=== PATIENT | male | born 1955 | race Caucasian/White ===

== ENCOUNTER 2020-01-22 13:07 | Outpatient (CLI) | payer MEDICARE, OTHER, SELFPAY ==
[2020-01-22 13:43] LABS: Blood Urea Nitrogen 13 mg/dL (8-23); Glomerular Filtration Rate 55.8 mL/min (90-130)
[2020-01-22] MEDS: iodixanol 320 mg/mL 100mL Btl IV (13:57)
--- NOTE | 2020-01-22 14:00 | CT_ITS ---
WS: [id number] CT ANGIOGRAPHY OF THE ABDOMINAL AORTA WITH RUNOFF TO THE ANKLES HISTORY: leg pain TECHNIQUE: Arterial injection is performed during imaging to evaluate the aorta and runoff vessels to the ankles. MIP and volume rendering imaging has also been performed. All images are reviewed. All C T scans at [facility] use at least one of these dose optimization techniques: automated ex posure control; mA and/or kV adjustment per patient size (includes targeted exams where dose is match ed to clinical indication); or iterative reconstruction. Contrast: Visipaque 320; 95 mL IV. DLP: 1579.38 mGycm COMPARISON: 10/07/2017 Chronic emphysematous changes at the lung bases. Heart size is slightly enlarged. Small hiatal hernia . Prior cholecystectomy. Early arterial enhancement of the liver, spleen, pancreas, adrenals and kidney s are negative for acute abnormality. No bile duct dilatation. No mass is, adenopathy or ascites. Abdominal aorta: Tortuous ectatic aorta. Mild aneurysmal dilatation measuring up to 3.2 cm. Calcified plaque in intimal luminal thickening. Origins of the celiac axis and SMA are patent but there is ana maria cified plaque. More significant plaque in the mid to distal SMA. Renal arteries are patent. Bilateral common iliac arteries contain plaque and intimal thickening. Limited opacification with moderate odell nosis involving the origin of the RIGHT external iliac of 40-50%. RIGHT lower extremity arterial system: Calcified plaque and intimal thickening throughout the common and superficial femoral artery. Occlusion of the proximal SFA. Progression of the stenosis. There is intermittent visualization of the mid to distal SFA. There are reconstitution distally with an intact popliteal artery. Small caliber but intact three-vessel runoff to the ankle. LEFT lower extremity arterial system: Again noted is the focal segment dissection involving the proxi mal LEFT common femoral artery. Superficial femoral artery demonstrates moderate stenosis in the prox imal to mid artery. Several areas of yffl-vh-flgtafau stenosis throughout the superficial femoral art james. Patent popliteal artery. Mild progression since the prior study. Deep profunda remains intact. S mall caliber but three-vessel runoff remains to the ankle. No adenopathy. No free fluid or ascites. No GI tract obstruction. Degenerative disc disease at multip le levels in the lumbar spine. CT/CT angio abd aorta runof 80693 IMPRESSION: 1. Proximal RIGHT SFA occlusion with distal reconstitution into the popliteal artery. Extent of the occlusion has progressed since 2018. 2. 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 3. Multilevel areas of vjvg-co-bvlkkzyt stenosis throughout the mid to distal LEFT SFA. Stenosis less than 60%. 4. Three-vessel runoff to the ankles bilaterally. 5. Mild aneurysmal dilatation abdominal aorta with a maximum diameter of 3.2 c m. Mild progression of the aneurysm since 2018.
== END 2020-01-22 13:08 | disposition home or self-care (01) ==
LOC: RADWPI 13:11
PROVIDERS: Family Provider Nurse Practitioner Family; PCP Nurse Practitioner Family; Visit Provider Thoracic Surgery (Cardiothoracic Vascular Surgery)
DX: M79.606 Pain in leg, unspecified (principal); I70.8 Atherosclerosis of other arteries; I71.4 Abdominal aortic aneurysm, without rupture
CPT/HCPCS: 75635; 82565; 84520; Q9967

== ENCOUNTER 2020-02-13 08:56 | Outpatient (CLI) | payer MEDICARE, SELFPAY ==
--- NOTE | 2020-02-13 09:14 | ECG_ITS ---
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 Interpretive Statements NAME OF STUDY: LEXISCAN SESTAMIBI STRESS TEST INDICATION: Chest Pain PROCEDURE: At the baseline, the EKG revealed sinus rhythm, normal axis with non specific ST depression. The baseline blood pressure was 159/76 mm Hg with a heart rate of 61 beats/min. Lexiscan was infused over a period of 20 seconds. A total of 0.4 milligrams of Lexiscan was infused. The stress phase was continued for a total of 5 minutes. Heart rate at the end of the stress phase was 74 bpm with a blood pressure 167/70 mm Hg. The EKG at the peak infusion revealed no significant ST-T wave changes. The study was terminated due to protocol completion. Sestamibi was injected 20 seconds after the Lexiscan infusion. Blood pressure at the end of the recovery phase was 179/63 mm Hg with a heart rate of 75 bpm. CONCLUSION: 1. Nonspecific ST-T changes with the LexiScan infusion. 2. No LexiScan induced chest pain or cardiac arrhythmia. 3. Normal blood pressure and heart rate response. 4. Sestamibi/sestamibi perfusion scan pending; see separate report. Electronically Signed On 02-14-2020 0:22:10 CDT by Mena Noble M.D. [email or web address]
--- NOTE | 2020-02-13 09:14 | NMCV_ITS ---
NM shari perf SPECT r/s* [id number] Van Dwyer Age: 64 Gender: M : 1955 Exam Date: 02/13/2020 10:06 Ordering Phys: Mena Noble MD ([email or web address]) Technologist: BRIE Rivero Exam Location: [facility] Indications: Chest pain STRESS TEST Please see separate stress test report in [facility] for full findings IMAGE PROTOCOL Rest/Stress 1 Lexiscan Day Radiopharmaceutical Dose (mCi) Administration Site Administered by Rest: Tc-99m 10.8 IV BRIE Rivero Sestamibi Stress:Tc-99m 32.8 IV BRIE Rivero Sestamibi Rest: 13-Feb-2020 60 Discovery 630 Stress: 13-Feb-2020 45 Discovery 630 0.4mg Lexiscan. Images obtained in supine and prone position. SPECT RESULTS Technical Quality: Good Raw Data Analysis: Normal Image Corrections: No attenuation or motion correction applied Summed Stress Score: 7 Summed Rest Score: 3 Summed Difference Score: 4 PERFUSION FINDINGS Small sized reversible perfusion abnormality of mild severity of mid inferoseptal and apical septal valadez with slightly inproved tracer uptake in prone stress images. FUNCTIONAL RESULTS (calculated via Gated SPECT) Stress Image LV EF (%): 58 Stress EDV (mL):120 TID: 1.11 Stress ESV (mL):51 FUNCTIONAL FINDINGS: The left ventricle is normal in size. Transient Ischemia Dilatation of 1.1. There is normal left ventricular systolic function. The left ventricular ejection fraction is normal with a value of 58%. There is normal left ventricular wall thickening. IMPRESSIONS 1. Small sized reversible perfusion abnormality of mild severity of mid inferoseptal and apical septal valadez with slightly inproved tracer uptake on prone stress images. 2. This may represent attenuation artifact, however small area of ischemia in circumflex artery territory cannot be completely ruled out. 3. Overall left ventricular systolic function is normal without regional wall motion abnormalities. 4. The left ventricular ejection fraction is normal with a value of 58%. 5. No prior similar studies to compare. Mena Noble MD (Electronically Signed) Final Date: 14 February 2020 19:03 S
[2020-02-13 10:02] VITALS: BMI 39.1
[2020-02-13] MEDS: regadenoson 0.4 Mg/5 ml Syringe IVP (10:49)
[2020-02-13 11:01] VITALS: BP 179/63; PULSE 75
== END 2020-02-13 08:57 | disposition home or self-care (01) ==
LOC: CDL 08:57
PROVIDERS: PCP Nurse Practitioner Family; Visit Provider Internal Medicine Cardiovascular Disease
DX: R07.9 Chest pain, unspecified (principal)
CPT/HCPCS: 78452; 93017; A9500; J2785

== ENCOUNTER 2020-04-01 10:23 | Outpatient (CLI) | payer MEDICARE, SELFPAY ==
[2020-04-01 11:55] LABS: Basophils # 0.1 10^3/uL (0.0-0.1); Basophils % 0.8 %; Eosinophils # 0.2 10^3/uL (0.0-0.8); Hematocrit 41.4 % (42.0-52.0); Hemoglobin 13.9 g/dL (11.7-16.6); Lymphocytes # 1.9 10^3/uL (0.8-4.8); Lymphocytes % 31.4 %; Mean Corpuscular HGB Conc 33.6 g/dL (30.0-36.0); Mean Corpuscular Hemoglobin 32.2 pg (28.0-34.0); Mean Corpuscular Volume 95.8 fL (80-94); Mean Platelet Volume 9.9 fL (7.4-10.4); Monocytes # 0.5 10^3/uL (0.2-0.9); Monocytes % 8.4 %; Neutrophils # 3.34 10^3/uL (1.8-7.7); Neutrophils % 55.1 %; Nucleated Red Blood Cells % 0 %; Platelet Count 264 10^3/cmm (130-400); Red Blood Count 4.32 10^6/uL (4.1-5.3); Red Cell Distribution Width 14.5 % (12.1-15.1); White Blood Count 6.1 10^3/uL (4.0-10.0)
[2020-04-01 12:11] LABS: INR 0.91 (0.83-1.21); Prothrombin Time (Patient) 12.5 Seconds (12.0-15.1)
[2020-04-01 12:39] LABS: Anion Gap 14.5 (5-19); Blood Urea Nitrogen 11 mg/dL (8-23); Calcium 9.2 mg/dL (8.5-10.5); Carbon Dioxide 29 mmol/L (22-29); Chloride 98 mmol/L (98-107); Glomerular Filtration Rate 61.1 mL/min (90-130); Glucose 122 mg/dL (65-115); Osmolality Calculated 287 mOsm/kg (285-295); Potassium 3.5 mmol/L (3.5-5.1); Sodium 138 mmol/L (136-145)
[2020-04-03 07:15] LABS: Coronavirus Lab Test PTC Negative
== END 2020-04-01 10:24 | disposition home or self-care (01) ==
LOC: LAB 10:25
PROVIDERS: PCP Nurse Practitioner Family; Visit Provider Internal Medicine Cardiovascular Disease
DX: Z01.818 Encounter for other preprocedural examination (principal); R07.9 Chest pain, unspecified
CPT/HCPCS: 80048; 85025; 87635

== ENCOUNTER 2020-04-03 06:48 | Day surgery (SDC) | payer MEDICARE, SELFPAY ==
[2020-04-03] VITALS (20 sets, daily range): BP systolic 112–148; BP diastolic 43–78; PULSE 61–71; RESP 16–22; TEMP 36.7–36.8; O2SAT 94–99; BMI 41.6
--- NOTE | 2020-04-03 08:30 | XACV_ITS ---
Ht: 170 cm Wt: 121 kg BSA: 2.45 m2 Gender: Male : 1955 Any Known Allergies: No known allergies Exam Priority: Routine Procedure(s): Procedure Description: Diagnostic procedure Procedure Description: PCI procedure Procedure Description: Drug Eluting Coronary Stent Procedure Description: PTCA Procedure Description: Miscellaneous Procedure Description: ACT Procedure Description: Coronary Angiography Diagnostic Cath Status: Elective Diagnostic Findings * Indication: Worsening angina/abnormal stress test. * pLAD: Mild 40-50% calcified stenosis, IRA: 3 flow. * Left circumflex is a large artery. It gives rise to 2 OM branches. * M * id Circumflex Coronary Artery: Severe 90% stenosis, IRA: 0 flow. * pRCA: Moderate, long 50% calcified stenosis. The stenosis is in a tortuous segment. IRA: 3 flow. * LM has 0% stenosis. * Coronary angiography shows right dominance. PCI Status: Elective PCI Indication: Other Interventional Findings * We engaged the left main artery using XB 3.5 guide catheter. IV heparin was used to maintain an ACT above 250 sec. A 0.014 run-through guidewire was used to cross the lesion in the mid left circumflex. Lesion was predilated using a 2.75 x 12 mm semi-compliant balloon. This was followed by placement of 3.0 x 18 mm resolute Kuldip drug-eluting stent. We postdilated with a stent using a 3.0 x 8 mm NC balloon. This time final angiogram was performed that showed IRA-3 flow, excellent stent expansion and no residual stenosis. At this time guide cath wire and guide catheter were removed. Patient left the Portable Track Line Marker in a stable condition. * Mid Circumflex Coronary Artery: 90% stenosis treated with AB TREK 2.75X12 RX BALLOON, NATE Cornelius KULDIP 3.0X18 RICARDO, and NATE MARTINEZ EUPHORA RX 3.09V47EB BALLOON. 0% residual stenosis, IRA: 3 flow. Conclusions 1. There is severe stenosis of mid left circumflex artery.. 2. Moderate stenosis of proximal LAD and proximal RCA. 3. Mid Circumflex Coronary Artery was treated with two Balloon and Drug Eluting Stent. Recommendations * Overnight observation in CSU. * Continue aspirin and Plavix for at least 1 year. * Uptitrate atorvastatin to high intensity dose. * Initiate beta-talon. * Follow-up in cardiology clinic in 4 weeks. Interventional RX Recommendation: PCI w/o planned CABG Diagnostic RX Recommendation: PCI w/o planned CABG Anticoagulation: Heparin Pressures Phase:Rest AO : 140 / 78 ( 101 ) @ 4:00:00 AM 124 / 77 ( 97 ) @ 4:04:00 AM 132 / 69 ( 92 ) @ 4:15:00 AM 121 / 67 ( 88 ) @ 4:21:00 AM 136 / 66 ( 94 ) @ 4:40:00 AM Clinical Evaluation EBL: 5mL-10mL Procedural Details Procedure Consent Obtained. Pre-Procedure Time Out. Identified patient by full name and date of as verbalized by the patient/guarantor. Does the consent match the physician's order: Yes. Accurate & Complete Informed Consent: Yes. Inpatient/Outpatient History & Physical on Chart: Yes. If H&P is completed, is and addenduem needed: No; If yes, is the addendum complete: N/A. Visualize and Verify Site with Patient/Guarantor: N/A. Relevant Radiology Images available: N/A. Pre-op teaching completed and patient verbalized understanding. The risks, benefits, and alternatives of sedation and/or procedure were discussed by physician. The patient agrees to continue. Procedure started. [facility] Clinical Fraility Score: 3: Managing Well. Portable Track Line Marker Indications: Worsening Angina, abnormal stress test. Chest Pain Symptom Assessment: Typical Angina Symptoms. Cardiovascular Instability: No. Correct patient, site and procedure confirmed by cath team. PERRLA. Strong, equal hand harness maker bilaterally. Lungs clear x 5 lobes. IV Site on Arrival: 22 gauge in the left anticubital. IV Fluids: 0.9% NaCl at KVO. 0 mL infused prior to mini lab operator. Pre Procedural Pulses: bilateral dorsalis pedis was Doppled. Pre Procedural Pulses: bilateral posterior tibial was Doppled. Pre Procedural Pulses: bilateral radial was 3+. Oxygen started at 2liters/min via nasal canula. bilateral groins was prepped with chloroprep then draped in the usual sterile fashion. right radial was prepped with chloroprep then draped in the usual sterile fashion. Baseline sample Acquired. HR: 57 BPM. Physician notified. Physician arrived. Equipment: 6F - Radial. Cardiac Cath Pack. ACIST Manifold Kit Model BT 2000. Heparinized Saline (2 units/mL), 1000 mL bag. Physician scrubbed in. Immediate Pre-Procedure Time Out. Correct Patient: Yes; Correct Procedure: Yes; Correct Site: Yes; Correct Patient Position: Yes; Correct Supplies: Yes; Dried Flammable Prep: Yes; Blood Products Available: N/A;. Lidocaine 1% infiltrated to the right radial. Arterial access obtained. A 5 czech TIG catheter in over wire. Multiple views taken of left coronary artery. Catheter redirected to the RCA. Catheter removed over the standard wire. Inventory is CRD 6 FR XB 3.5 GUIDE. 6 czech XB 3.5 guide catheter was inserted over the wire. Inventory is TR 180cm Runthrough NS extra floppy 0.014 wire. Runthrough guidewire was advanced through the guide catheter to lesion in the mid Circ. Inflation number : 1 A AB TREK 2.75X12 RX BALLOON was prepped and advanced across the Mid CX , then inflated to 8 CATARINA for 0:10 seconds. Inflation number: 2 The AB TREK 2.75X12 RX BALLOON was reinflated across the Mid CX, to 12 CATARINA for 0:34 seconds. Balloon out. ACT drawn. Results 389 seconds. Therapeutic limits - pre-heparin administration 90-150 seconds and monitoring heparin during a vascular procedure >250 seconds. Inflation Number : 3 A MDT R KULDIP 3.0X18 RICARDO -Lot Number# [id number] exp date 09/13/2021 was prepped and advanced across the Mid CX. The stent was deployed at 12 CATARINA for 0:29 seconds. Stent balloon out over wire. Results checked. Inflation number : 4 A MDT NC EUPHORA RX 3.06B79ZX BALLOON was prepped and advanced across the Mid CX , then inflated to 16 CATARINA for 0:23 seconds. Inflation number: 5 The MDT NC EUPHORA RX 3.21V95BA BALLOON was reinflated across the Mid CX, to 16 CATARIAN for 0:16 seconds. Inflation number: 6 The MDT NC EUPHORA RX 3.46X30OR BALLOON was reinflated across the Mid CX, to 16 CATARINA for 0:17 seconds. Balloon out. Wire out. Guide catheter out. Inventory is CRD 6FR JR 4 GUIDE 100cm. 6 czech JR 4 guide catheter was inserted over the wire. Picture of RCA. Guide catheter out. A TR Band was successful obtaining hemostatsis at the Right Radial artery insertion site. TR band placed. Hemostasis obtained. Post Procedure: Pulses reassessed and unchanged. PERRLA. Strong, equal hand harness maker bilaterally. No VTE prophylaxis required. Medication's Wasted: Lidocaine 1% = 18 mL. Medication's Wasted: Nitro = 49.8 mg. Medication's Wasted: Heparin = 1000 units. Medication's Wasted: Other = versed 1 mg. Medication's Wasted: Other = fentanyl 50 mcg. Total IV fluids: 75 mL. Post-op diagnosis: severe mid CIRC stenosis, CAD. Complications: none. Estimated blood loss: 5mL-10mL. Procedure completed. Patient transferred by wheelchair to 1st floor. Vital chart was stopped. Access Site Site: Right Radial artery Sheath Size: 6 Fr Hemostasis Method: TR Band Hemostasis Success: Successful Procedure Medications Start: 8:41 AM Stop: 8:41 AM Medication: Benadryl Amount: 25 mg Route: I.V. Start: 8:47 AM Stop: 8:47 AM Medication: Versed Amount: 1 mg Route: I.V. Start: 8:47 AM Stop: 8:47 AM Medication: Fentanyl Amount: 50 mcg Route: I.V. Start: 8:52 AM Stop: 8:52 AM Medication: Versed Amount: 1 mg Route: I.V. Start: 8:58 AM Stop: 8:58 AM Medication: Nitrogylcerin Amount: 200 mcg Route: I.A. Start: 9:00 AM Stop: 9:00 AM Medication: Heparin Amount: 5000 units Route: I.V. Start: 9:04 AM Stop: 9:04 AM Medication: Fentanyl Amount: 50 mcg Route: I.V. Start: 9:06 AM Stop: 9:06 AM Medication: Versed Amount: 1 mg Route: I.V. Start: 9:08 AM Stop: 9:08 AM Medication: Versed Amount: 1 mg Route: I.V. Start: 9:18 AM Stop: 9:18 AM Medication: Heparin Amount: 5000 units Route: I.V. Start: 9:25 AM Stop: 9:25 AM Medication: Versed Amount: 1 mg Route: I.V. Start: 9:32 AM Stop: 9:32 AM Medication: Fentanyl Amount: 50 mcg Route: I.V. Start: 9:36 AM Stop: 9:36 AM Medication: Versed Amount: 1 mg Route: I.V. Start: 9:48 AM Stop: 9:48 AM Medication: Plavix Amount: 600 mg Route: P.O. I, the attending physician, have reviewed and verified all procedure medications. Yes, all medications given per verbal order History/Risk Factors Hypertension: Yes Dyslipidemia: No Peripheral Arterial Disease (PAD): No Myocardial Infarction (WI): No Obesity: Yes Renal Disease: No Tobacco Use: Former Prior Interventions PCI: No CABG: No Valve Surgery: No Report Signatures Finalized by Conner Rolon MD on 04/07/2020 06:29 PM
--- NOTE | 2020-04-03 08:44 | W.PM.OPSUD ---
Surgery/Procedure H&P Update DATE OF PROCEDURE: April 03, 2020 DATE H&P PERFORMED: 03/15/20 H&P UPDATE INFORMATION: I have reviewed H&P completed within last 30 days, I have examined patient prior to procedure and No changes to prior documentation PREOP DIAGNOSIS: Worsening angina/abnormal stress test PRIMARY INDICATION FOR PROCEDURE: Worsening angina/abnormal stress test PLANNED PROCEDURE: Operation Date: 04/03/20 08:30 Proposed Procedures p Cardiac Catheterization left(Not Applicable) - Conner Rolon M.D PATIENT REASSESSED PRIOR TO SEDATION, WITH NO CHANGE NOTED: Yes PHYSICAL EXAM: alert, oriented x 3 and clear to auscultation bilaterally AIRWAY EVAL/ANESTHESIA PLAN: ASA III, Risks, benefits & alternatives of sedation and/or procedure discussed and Patient agrees to continue as planned
--- NOTE | 2020-04-03 12:09 | PC.NURSE ---
TR Band deflation started. The patient has finished his lunch.
--- NOTE | 2020-04-03 13:22 | PC.NURSE ---
T R Band deflation complete. No bleeding or swelling noted. The patient tolerated the procedure well.
--- NOTE | 2020-04-03 14:10 | PC.NURSE ---
report received from tabby tucker. pt to room per w/c, up to restroom with out difficulty. pt ambulated to bed. placed on hall monitor and oriented to room, call light, and bed controls. denies and pain or discomfort at this time. no s/s of acute distress noted. tr band removed and dressing placed. instruct pt to not put pressure on rt arm by repositioning in bed, to call for assist. pt verbalized understanding. will continiue to monitor and provide support and safety.
--- NOTE | 2020-04-03 16:30 | PC.NURSE ---
pt ambulated to restroom. no s/s of acute distress or discomfort noted. call light with in reach, will continue to monitor and provide support and safety.
[2020-04-03] MEDS: tizanidine 4 mg Tablet PO (20:37)
--- NOTE | 2020-04-03 21:48 | PC.NURSE ---
1000ml bag of N.S. 0.9% was not scanned when started. Fluid was completed at 2130 and not continued as per M.D. order.
[2020-04-03] MEDS: sodium chloride 0.9% 1,000 ML 50 ML IV (21:53)
[2020-04-04 00:19] VITALS: BP 132/75; PULSE 69; RESP 19; TEMP 36.8; O2SAT 94
[2020-04-04 03:30] VITALS: BP 142/73; PULSE 75; RESP 16; TEMP 36.6; O2SAT 97
[2020-04-04 07:18] VITALS: BP 134/65; PULSE 72; RESP 22; TEMP 37.1; O2SAT 95
--- NOTE | 2020-04-04 07:43 | P.SS_ITS ---
Short Stay Summary Providers Date of Admit/Discharge: 04/04/20 Attending Provider: Conner Rolon M.D Primary Care Provider: REBECCA Nielsen Chief Complaint: left heart cath HPI History of Present Illness 64 yo man with PMHx of hypertension for last few years, former smoker (1PPD x 45 years and quit about 2 years ago), COPD on inhalers/ nebulizers, ROMEO on BiPaP family h/o CAd, chronic back pain, obesity had presented with typical chest pain and shortness of breath which was evaluated with nuclear stress test. Stress test was abnormal and left circumflex artery territory. Patient came as outpatient for coronary angiography with possible intervention. Review of Systems Narrative: CONSTITUTIONAL: No fever chills weight loss or gain or night sweats. [] HEENT: Normocephalic, atraumatic.[] RESPIRATORY: No cough, sputum, hemoptysis or wheezing.[] CARDIOVASCULAR: No shortness of breath, chest pain, PND, orthopnea, lower extremity edema, presyncope or syncope. [] GI: no nausea vomiting diarrhea. [] GORE SEAMER: No numbness, tingling, weakness or loss of function in any part of the body. [] MUSCULOSKELETAL: No knee or joint pain or rashes. [] Home Meds/Allergies Home Medications and Allergies Home Medications Medication Instructions Recorded Confirmed Type cetirizine 10 mg capsule 10 mg PO DAILY 01/11/20 04/03/20 History furosemide 40 mg tablet 40 mg PO DAILY 01/11/20 04/03/20 History gabapentin 300 mg capsule 300 mg PO DAILY 01/11/20 04/03/20 History oxygen-air delivery systems #1 01/11/20 04/03/20 History tizanidine 4 mg capsule 4 mg PO .q hs cap 01/11/20 04/03/20 History Allergies Allergy/AdvReac Type Severity Reaction Status Date / Time No Known Allergies Allergy Verified 04/02/20 07:47 PFSH Acute PFSH: Medical History AAA (abdominal aortic aneurysm) Hypertension Sleep apnea Surgical History H/O left knee surgery History of cholecystectomy Hx of tonsillectomy Family History Father CAD (coronary artery disease) Hypertension Mother Hypertension Other FH: CABG (coronary artery bypass surgery) Myocardial infarction Pacemaker Social History Smoking and tobacco status: former smoker Alcohol intake: former Vitals/I&O/Wt Last Vital Signs Temp 98.7 F 04/04/20 07:18 Pulse 72 04/04/20 07:18 Resp 22 H 04/04/20 07:18 BP 134/65 04/04/20 07:18 Pulse Ox 95 04/04/20 07:18 04/03/20 04/04/20 04/04/20 22:59 06:59 14:59 Intake Total 1040 / 1040 100 / 1140 Balance 1040 / 1040 100 / 1140 Weight last 48 hrs Weight 266 lb Physical Exam Narrative: EXAM NARRATIVE: GENERAL: Patient is alert, awake and oriented x3. [] NECK: No jugular vein distension. [] HEENT: No cyanosis. No icterus. No pallor. [] HEART: Regular S1 and S2. No murmur, rub or gallop. [] LUNGS: Clear to auscultate bilaterally. [] ABDOMEN: Soft, nontender and nondistended. Positive bowel sounds. No guarding, rebound or tenderness. [] CENTRAL NERVOUS SYSTEM: Grossly nonfocal. [] EXTREMITIES: Lower extremities with no edema bilaterally. Pulses palpable in the lower extremities, both dorsalis pedis and posterior tibial. [] Hospital Course Admission Diagnoses: Worsening angina/abnormal stress test Hospital Course: Patient underwent coronary angiography as outpatient. He had severe mid left circumflex 90% stenosis that was successfully revascularized using drug-eluting stent x1. He has moderate, 50% disease in proximal LAD which is tortuous and calcified. He also has a long, moderate, 50 to 60% lesion in proximal RCA that is also a tortuous vessel. This will be treated medically as stress test was normal in these territories. Patient was started on aspirin and Plavix. He stayed overnight in hospital and was stable. He was discharged today in stable condition. His atorvastatin dose was uptitrated to 40 mg daily. Patient will [facility] with [facility] as [facility]. 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 ARC request for service Routin e Exams 04/03/20 08:30 Taken Diagnoses at Discharge Discharge Diagnosis (1) Coronary artery disease: Status: Acute Problem details: s/p successful revascularization of mid Left circumflex artery (2) Hypertension: Status: Acute (3) PAD (peripheral artery disease): Status: Acute (4) Sleep apnea: Status: Acute Discharge Plan Discharge Patient Disposition: Home Condition: Stable Prescriptions: New atorvastatin 40 mg Tablet 40 mg PO DAILY Qty: 60 RF: 3 clopidogrel 75 mg Tablet 75 mg PO DAILY Qty: 90 RF: 3 metoprolol tartrate 25 mg tablet 12.5 mg PO BID Qty: 60 RF: 3 Continued furosemide 40 mg tablet 40 mg PO DAILY RF: 0 gabapentin 300 mg capsule 300 mg PO DAILY RF: 0 tizanidine 4 mg capsule 4 mg PO .q hs RF: 0 cetirizine 10 mg capsule 10 mg PO DAILY RF: 0 nitroglycerin 0.4 mg tablet, sublingual 0.4 mg SUBLINGUAL Q5M PRN (Reason: chest pain) Qty: 25 RF: 3 aspirin 81 mg tablet,delayed release (DR/EC) See Rx Instructions .ROUTE .COMPLEX Qty: 30 RF: 5 amlodipine 10 mg tablet See Rx Instructions .ROUTE .COMPLEX Qty: 90 RF: 3 pantoprazole 40 mg tablet,delayed release (DR/EC) See Rx Instructions .ROUTE .COMPLEX Qty: 90 RF: 3 Discontinued atorvastatin 20 mg tablet 20 mg PO DAILY Qty: 90 RF: 3 No Action (DME) oxygen-air delivery systems Device See Rx Instructions .ROUTE .MEDSUPPLY Qty: 1 RF: 0 Discharge Orders: Discharge Order (Routine); Ordered 04/04/20 Ordered By: Conner Rolon Referrals: Jessica Garcia FNP [Nurse Practitioner] - 7-10 days (Please see REBECCA Olguin on April 11 at 10 am. If you are unable to keep this appointment, please call to reschedule. Thank you.) Mena Noble MD [Physician] - 1 month (Please see Dr. Noble on May 16 at 10:15. If you are unable to keep this appointment, please call to reschedule. Thank you.) Discharge Diet: Cardiac Discharge Activity: Increase activity as tolerated Patient Instructions: Metoprolol (By mouth), Atorvastatin (By mouth), Clop idogrel (By mouth), Chest Pain Stoplight, Post Angiogram Home Care Instructions Activity Restrictions/Additional Instructions: Please do not lift any weight more than 5 pounds for the next 5 days. Discharge Date/Time: 04/04/20 09:30 Attestations Medical Necessity Statement*: Care not expected to cross 2 midnights. Time Spent in Patient Care*: greater than 30 min Quality Metrics Clinical Quality Measures: During this hospital stay, did patient experience: None Coding Level of Care Code Acute Finisher Machine for Ivonneg Fwd Diagnoses Coronary artery disease I25.10 Hypertension I10 PAD (peripheral artery disease) I73.9 Sleep apnea G47.30
[2020-04-04] MEDS: clopidogrel 75 mg Tablet PO (08:38)
[2020-04-04] MEDS: aspirin 81 mg EC Tablet PO (08:38)
[2020-04-04] MEDS: pantoprazole DR 40 mg Tablet PO (08:38)
[2020-04-04] MEDS: cetirizine 10 mg Tablet PO (08:39)
[2020-04-04] MEDS: amlodipine 10 mg Tablet PO (08:39)
[2020-04-04] MEDS: gabapentin 300 mg Capsule PO (08:39)
[2020-04-04] MEDS: atorvastatin 40 mg Tablet PO (08:39)
--- NOTE | 2020-04-04 09:25 | PC.NURSE ---
Discharge instructions given per the physician's orders. Patient verbalized understanding of information and did not have any further questions. IV has been removed. Patient dressed self. Patient to be drove home by in private vehicle. No further needs identified at this time.
[2020-04-04 10:04] VITALS: BP 134/65; PULSE 72; RESP 22; TEMP 37.1; O2SAT 95
== END 2020-04-04 09:30 | disposition home or self-care (01) ==
LOC: CCL 06:53 → CSU 14:04
PROVIDERS: PCP Nurse Practitioner Family; Visit Provider Internal Medicine
DX: I25.10 Atherosclerotic heart disease of native coronary artery without angina pectoris (principal); I10 Essential (primary) hypertension; I73.9 Peripheral vascular disease, unspecified; G47.30 Sleep apnea, unspecified; Z87.891 Personal history of nicotine dependence; J44.9 Chronic obstructive pulmonary disease, unspecified; G47.33 Obstructive sleep apnea (adult) (pediatric); E66.9 Obesity, unspecified; Z68.41 Body mass index [BMI] 40.0-44.9, adult; Z99.81 Dependence on supplemental oxygen
CPT/HCPCS: 12345; 36415; 85347; 93454; C1725; C1769; C1874; C1887; C1894; C9600; J1200; J1644; J2250; J3010; J3490; J7030; Q9967

== ENCOUNTER → 2020-05-20 14:24 | Outpatient (BNVA) | payer MEDICARE, SELFPAY | PROVIDERS: PCP Nurse Practitioner Family; Referring Provider Nurse Practitioner Family; Visit Provider Orthopaedic Surgery | DX: M25.562 Pain in left knee (principal); M17.12 Unilateral primary osteoarthritis, left knee; Z46.89 Encounter for fitting and adjustment of other specified devices | CPT/HCPCS: 73560; 73565; 97760; L1812 ==

== ENCOUNTER 2020-05-20 16:03 | Outpatient (CLI) | payer MEDICARE, SELFPAY | END 2020-05-20 16:04 | disposition home or self-care (01) | LOC: SPT 16:04 | PROVIDERS: PCP Nurse Practitioner Family; Visit Provider Orthopaedic Surgery | DX: Z46.89 Encounter for fitting and adjustment of other specified devices (principal); M17.12 Unilateral primary osteoarthritis, left knee | CPT/HCPCS: 97760; L1812 ==

== ENCOUNTER 2020-10-08 06:44 | Outpatient (CLI) | payer MEDICARE, SELFPAY ==
--- NOTE | 2020-10-08 | USCV_ITS ---
Van Dwyer Age: 65 Gender: M : 1955 Exam Date: 10/08/2020 07:10 Ordering Phys: Dani Sanabria MD (Andy) ([email or web address]) Technologist: Suly Jones Exam Location: [facility] – [place] Indication: AAA SEEN ON CT HISTORY: AAA SEEN ON CT Diameter (cm) AP x Transverse x Length Velocity (cm/s) Waveform Prox Aorta: 2.77 x 2.37 x 82.70 Mid Aorta: 2.31 x 2.28 x 80.60 Distal Aorta: 3.23 x 3.01 x 5.45 87.00 Right Iliac Prox: 1.66 x 1.75 x 46.40 Left Iliac Prox: 1.71 x 1.59 x 64.50 Stent Prox Landing x x Aneurysmal Sac Max x x Lt Lat Sac Dim Rt Lat Sac Dim Stent Dist Landing x x Right Iliac Stent x x Left Iliac Stent x x Right Renal Art Left Renal Art FINDINGS: Mild to moderate diffuse plaques in the abdominal aorta Distal aorta measuring 3.23 x 3.01 cm. Normal Doppler flow velocity CONCLUSIONS 1. Small fusiform aneurysm of the distal abdominal aorta measuring 3.23 x 3.01 cm 2. Ectatic common iliac arteries bilaterally measuring 1.66 x 1.75 on the right side and 1.71 x 1.59 on the left side Dr Nahum Hill MD [facility] (Electronically Signed) Final Date: 09 October 2020 01:00 S
== END 2020-10-08 06:45 | disposition home or self-care (01) ==
LOC: RAD 06:48
PROVIDERS: PCP Nurse Practitioner Family; Visit Provider Thoracic Surgery (Cardiothoracic Vascular Surgery)
DX: I71.4 Abdominal aortic aneurysm, without rupture (principal)
CPT/HCPCS: 76706

== ENCOUNTER 2020-11-22 10:27 | Outpatient (CLI) | payer MEDICARE, OTHER, SELFPAY ==
--- NOTE | 2020-11-22 11:00 | USCV_ITS ---
Van Dwyer Age: 65 Gender: M : 1955 Exam Date: 11/22/2020 10:47 Ordering Phys: Mena Noble MD ([email or web address]) Technologist: Eve Carreon Exam Location: [facility] – [place] Indication: BLE PAIN HISTORY: Lower extremity pain. PROCEDURES: Venous duplex imaging was performed in bilateral lower extremities. The following venous structures were evaluated: common femoral vein, profunda vein, proximal portion of the greater saphenous vein, superficial femoral vein, and the popliteal vein. In addition, the posterior tibial and peroneal trunk were evaluated. Serial compression, augmentation maneuvers, and spectral Doppler flow evaluation were performed. FINDINGS: Normal 2-D Doppler and augmentation and compressibility throughout the lower extremity venous structures. Additional imaging through the proximal calf veins also reveals no thrombus. Limited evaluation of the greater saphenous vein is patent with no thrombus. CONCLUSIONS No DVT bilateral lower extremities. Dr. Luciana Aviles DO (Electronically Signed) Final Date: 22 Nov 2020 11:49 S
== END 2020-11-22 10:28 | disposition home or self-care (01) ==
LOC: RAD 10:38
PROVIDERS: PCP Nurse Practitioner Family; Visit Provider Internal Medicine Cardiovascular Disease
DX: I73.9 Peripheral vascular disease, unspecified (principal); M79.604 Pain in right leg; M79.605 Pain in left leg
CPT/HCPCS: 93970

== ENCOUNTER → 2020-11-27 10:40 | Outpatient (BNVA) | payer MEDICARE, OTHER, SELFPAY | PROVIDERS: PCP Nurse Practitioner Family; Referring Provider Internal Medicine Cardiovascular Disease; Visit Provider Internal Medicine Cardiovascular Disease | DX: I73.9 Peripheral vascular disease, unspecified (principal); I10 Essential (primary) hypertension; Z01.818 Encounter for other preprocedural examination; Z20.822 Contact with and (suspected) exposure to COVID-19; Z82.49 Family history of ischemic heart disease and other diseases of the circulatory system; I25.119 Atherosclerotic heart disease of native coronary artery with unspecified angina pectoris | CPT/HCPCS: 80053; 83735; 83880; 85025; 85610; 87635 ==

== ENCOUNTER 2020-12-04 08:01 | Day surgery (SDC) | payer MEDICARE, OTHER, SELFPAY ==
[2020-12-04] VITALS (33 sets, daily range): BP systolic 97–145; BP diastolic 45–78; PULSE 63–86; RESP 16–22; TEMP 36.3–36.6; O2SAT 93–98; BMI 41.0
[2020-12-04] MEDS: diphenhydrAMINE 50 mg Capsule PO (08:58)
--- NOTE | 2020-12-04 09:00 | XACV_ITS ---
Wt: 119 kg BSA: 2.43 m2 Any Known Allergies: No known allergies Gender: Male : 1955 Exam Type: Invasive Peripheral Vascular Procedure(s): Procedure Description: Peripheral Cath Diagnostic Procedure Procedure Description: Abdominal aortic angiography Procedure Description: Peripheral vascular Intervention Procedure Description: PV Balloon Exam Priority: Routine Abdominal Diagnostic Findings Distal aorta: Looks aneurysmal. No significant stenosis. Lower Extremity Diagnostic Findings Left common iliac artery: Aneurysmal. After the aneurysmal segment, there is an area of step down that looks narrowed. Left external iliac artery: Patent Left common femoral artery: Patent Left profunda femoral artery: Patent Left SFA: Has mid segment serial 70-80% stenosis Left popliteal artery: Patent Below the knee there is 3 vessel run-off to the foot. No significant stenosis. . Right common iliac artery: Patent Right external iliac artery: Patent Right common femoral artery: Patent Right profunda femoral artery: Patent Right SFA: Has total occlusion of the proximal vessel. Reconstitution with collateral blood supply in popliteal artery Right popliteal artery: Patent, filled by collateral blood flow. Below the knee there is 3 vessel run-off to the foot. No significant stenosis. Lower Extremity Interventional Findings Procedure detail: We obtained access in the right femoral artery. After performing abdominal angiogram, we switched to long flexor sheath and placed it in the left common external iliac artery. We then used a 5.0 x 200mm Merrill balloon to perform balloon angioplasty of the right mid SFA. This was followed by balloon angioplasty of the same segment with a [id number] Merrill balloon. At this time, final angiogram was performed that showed excellent vessel expansion and 3 vessel runoff to the ankle. Balloon was removed. We used the sheath to measure pressure gradient across the lesion in the left common iliac artery. No significant pressure gradient was noted across the left common iliac artery. Sheath was sutured in place for removal later. Conclusions Severe left mid SFA stenosis s/p successful revascularization with balloon angioplasty. Occluded right proximal to distal SFA. Recommendations Transfer to CSU. Continue aspirin and plavix. Patient has occluded right SFA. If medical therapy fails to relieve the pain, can schedule for revascularization of the right leg as a staged procedure. Outpatient cardiology follow up in 4 weeks. Anticoagulation: Heparin Hemodynamic Data Phase:Rest AO : 124.0 / 62.0 ( 87.0 ) @ 10:18:00 AM 130.0 / 62.0 ( 88.0 ) @ 10:19:00 AM Access Site Site: Right Femoral artery Sheath Size: 6 Fr Hemost... Method: Suture Hemost... Success: Successful Procedure Details Findings Procedure Consent Obtained. Admit Source: Out Patient. Pre-Procedure Time Out. Identified patient by full name and date of as verbalized by the patient/guarantor. Does the consent match the physician's order: Yes. Accurate & Complete Informed Consent: Yes. Inpatient/Outpatient History & Physical on Chart: Yes. If H&P is completed, is and addenduem needed: Yes; If yes, is the addendum complete: N/A. Visualize and Verify Site with Patient/Guarantor: N/A. Relevant Radiology Images available: Yes. Pre-op teaching completed and patient verbalized understanding. The risks, benefits, and alternatives of sedation and/or procedure were discussed by physician. The patient agrees to continue. Procedure started. Correct patient, site and procedure confirmed by cath team. PERRLA. Strong, equal hand satellite dish repairer bilaterally. Lungs clear x 5 lobes. IV Site on Arrival: 20 gauge in the right anticubital. Pre Procedural Pulses: bilateral dorsalis pedis was 1+. Pre Procedural Pulses: bilateral posterior tibial was Doppled. Pre Procedural Pulses: bilateral radial was 3+. Oxygen started at 2liters/min via nasal canula. bilateral groins was prepped with chloroprep then draped in the usual sterile fashion. Physician notified. Baseline sample Acquired. HR: 59 BPM. Physician arrived. Physician scrubbed in. Immediate Pre-Procedure Time Out. Correct Patient: Yes; Correct Procedure: Yes; Correct Site: Yes; Correct Patient Position: Yes; Correct Supplies: Yes; Dried Flammable Prep: Yes; Blood Products Available: N/A;. Lidocaine 1% infiltrated to the right groin. ultrasound machine used to help gain access. Arterial access obtained. micro dialater inserted. hand injection performed. glidewire inserted. A 5FrFr UF catheter in over wire. wire out. Abdominal aortogram performed in AP @ 10 mL/sec for a total of 30 mL. glide wire inserted. Catheter removed over the glide wire. A 5FrFr RIM catheter in over wire. Catheter out. A 5FrFr UF catheter in over wire. Catheter out. A 5FrFr RIM catheter in over wire. runoff performed of the left leg 10mL/sec for a total of 30mL. glidewire inserted. Catheter out. Sheath upsized to a 6 Fr. Side port of sheath attached to Normal Saline flush at KVO to maintain patency. Inflation number : 1 A AB Merrill 35 SUEDE BRUSHER Catheter [id number] was prepped and advanced across the Mid Superficial Femoral, Left , then inflated to 12 CATARINA for 2:00 seconds. Balloon out. checking results. Inflation number : 2 A AB ARMADA 35 OTW [id number] was prepped and advanced across the Mid Superficial Femoral, Left , then inflated to 8 CATARINA for 2:01 seconds. Balloon out. checking results. exchanging long 6F sheath for short 6F sheath. wire out. runoff performed on right leg 10mL/sec for a total of 30mL. Sheath(s) sutured into position with 2-0 silk and sterile 4x4's and Op-site applied over the site. No oozing or signs and symptoms of hematoma noted. Arterial sheath flushed and connected to tranducer and pressure bag with heparinized saline. Post Procedure: Pulses reassessed and unchanged. PERRLA. Strong, equal hand satellite dish repairer bilaterally. No VTE prophylaxis required. A Suture was successful obtaining hemostatsis at the Right Femoral artery insertion site. Medication's Wasted: Lidocaine 1% = 10 mL. Medication's Wasted: Other = fentanyl 50 mg. Total IV fluids: 50 mL. Contrast type used: Visipaque 320 mgI/mL, 500 mL bottle. Visipaque 263mL. Post-op diagnosis: severe mid left SFA stenosis. Complications: none. Estimated blood loss: 5mL-10mL. Procedure completed. Patient transferred by bed to 1st floor. Vital chart was stopped. Procedure Medications Start: 10:11 AM Stop: 10:11 AM Medication: Versed Amount: 1 mg Start: 10:11 AM Stop: 10:11 AM Medication: Fentanyl Amount: 50 mcg Route: I.V. Start: 10:17 AM Stop: 10:17 AM Medication: Versed Amount: 1 mg Start: 10:17 AM Stop: 10:17 AM Medication: Fentanyl Amount: 50 mcg Route: I.V. Start: 10:26 AM Stop: 10:26 AM Medication: Versed Amount: 1 mg Start: 10:29 AM Stop: 10:29 AM Medication: Fentanyl Amount: 50 mcg Route: I.V. Start: 10:37 AM Stop: 10:37 AM Medication: Versed Amount: 1 mg Start: 10:41 AM Stop: 10:41 AM Medication: Fentanyl Amount: 50 mcg Route: I.V. Start: 10:49 AM Stop: 10:49 AM Medication: Versed Amount: 1 mg Start: 10:56 AM Stop: 10:56 AM Medication: Fentanyl Amount: 50 mcg Route: I.V. Start: 11:07 AM Stop: 11:07 AM Medication: Versed Amount: 1 mg Start: 11:16 AM Stop: 11:16 AM Medication: Versed Amount: 1 mg Route: I.V. I, the attending physician, have reviewed and verified all procedure medications. Yes, all medications given per verbal order History/Risk Factors Hypertension: Yes Dyslipidemia: Yes Tobacco Use: Current/Recent(w/in 1 year) Report Signatures Finalized by Conner Rolon MD on 12/14/2020 06:18 PM
--- NOTE | 2020-12-04 10:14 | W.PM.OPSUD ---
Surgery/Procedure H&P Update DATE OF PROCEDURE: December 04, 2020 DATE H&P PERFORMED: 11/06/20 H&P UPDATE INFORMATION: I have reviewed H&P completed within last 30 days, I have examined patient prior to procedure and No changes to prior documentation PREOP DIAGNOSIS: Severe life style limiting claudication PRIMARY INDICATION FOR PROCEDURE: Severe life style limiting claudication PLANNED PROCEDURE: Operation Date: 12/04/20 10:00 Proposed Procedures p Peripheral Diagnostic 02544 I73.9(Not Applicable) - Conner Rolon M.D PATIENT REASSESSED PRIOR TO SEDATION, WITH NO CHANGE NOTED: Yes PHYSICAL EXAM: alert, oriented x 3, clear to auscultation bilaterally and regular rate & rhythm AIRWAY EVAL/ANESTHESIA PLAN: ASA III, Monitored Anesthesia, Local Anesthesia, Risks, benefits & alternatives of sedation and/or procedure discussed and Patient agrees to continue as planned
[2020-12-04 14:01] LABS: Partial Thromboplastin Time 44.9 SECONDS (23.9-36.7)
--- NOTE | 2020-12-04 14:45 | PC.NURSE ---
Sheath removed from right groin via instructions received from Dr Rolon no hematoma no bleeding patient tolerated well
[2020-12-05 03:26] VITALS: BP 132/51; PULSE 84; RESP 22; TEMP 36.8; O2SAT 93
[2020-12-05 04:59] VITALS: PULSE 64
[2020-12-05 05:21] LABS: Basophils # 0.1 10^3/uL (0.0-0.1); Eosinophils # 0.3 10^3/uL (0.0-0.8); Eosinophils % 4.6 %; Hematocrit 40.8 % (42.0-52.0); Hemoglobin 13.7 g/dL (11.7-16.6); Lymphocytes # 1.3 10^3/uL (0.8-4.8); Lymphocytes % 18.8 %; Mean Corpuscular HGB Conc 33.6 g/dL (30.0-36.0); Mean Corpuscular Hemoglobin 30.7 pg (28.0-34.0); Mean Corpuscular Volume 91.5 fL (80-94); Mean Platelet Volume 9.8 fL (7.4-10.4); Monocytes # 0.7 10^3/uL (0.2-0.9); Monocytes % 9.4 %; Neutrophils # 4.69 10^3/uL (1.8-7.7); Neutrophils % 65.9 %; Nucleated Red Blood Cells % 0 %; Platelet Count 258 10^3/cmm (130-400); Red Blood Count 4.46 10^6/uL (4.1-5.3); Red Cell Distribution Width 15.7 % (12.1-15.1); White Blood Count 7.1 10^3/uL (4.0-10.0)
[2020-12-05 05:35] LABS: Anion Gap 13.5 (5-19); Blood Urea Nitrogen 12 mg/dL (8-23); Calcium 8.3 mg/dL (8.5-10.5); Carbon Dioxide 26 mmol/L (22-29); Chloride 101 mmol/L (98-107); Glucose 96 mg/dL (65-115); Osmolality Calculated 284 mOsm/kg (285-295); Potassium 3.5 mmol/L (3.5-5.1); Sodium 137 mmol/L (136-145)
[2020-12-05 07:42] VITALS: BP 133/59; PULSE 68; RESP 18; TEMP 36.6; O2SAT 98
--- NOTE | 2020-12-05 08:27 | PM.SDS ---
Short Stay Summary Providers Date of Admit/Discharge: 12/16/20 Attending Provider: Conner Rolon M.D Primary Care Provider: REBECCA Nielsen Chief Complaint: periphreal diagnostic HPI History of Present Illness Van Dwyer is a 65 year old male with PMH of CAD, had severe lifestyle limiting claudication more on the left side. Review of Systems Narrative: CONSTITUTIONAL: No fever chills weight loss or gain or night sweats. [] HEENT: Normocephalic, atraumatic.[] RESPIRATORY: No cough, sputum, hemoptysis or wheezing.[] CARDIOVASCULAR: No shortness of breath, chest pain, PND, orthopnea, lower extremity edema, presyncope or syncope. [] GI: no nausea vomiting diarrhea. [] SKIING INSTRUCTOR: No numbness, tingling, weakness or loss of function in any part of the body. [] MUSCULOSKELETAL: No knee or joint pain or rashes. [] Home Meds/Allergies Home Medications and Allergies Home Medications Medication Instructions Recorded Confirmed Type cetirizine 10 mg capsule 10 mg PO BEDTIME 01/11/20 12/12/20 History gabapentin 300 mg capsule 300 mg PO BEDTIME 01/11/20 12/12/20 History oxygen-air delivery systems #1 01/11/20 12/12/20 History tizanidine 4 mg capsule 4 mg PO BEDTIME cap 01/11/20 12/12/20 History ibuprofen 800 mg tablet 1,600 mg PO BEDTIME 09/12/20 12/12/20 History amlodipine 5 mg PO BEDTIME 12/04/20 12/12/20 History aspirin 81 mg PO BEDTIME 12/04/20 12/12/20 History cilostazol 100 mg PO BEDTIME 12/04/20 12/12/20 History clopidogrel 75 mg PO BEDTIME 12/04/20 12/12/20 History furosemide 40 mg PO BEDTIME 12/04/20 12/12/20 History metoprolol tartrate 25 mg PO BEDTIME 12/04/20 12/12/20 History pantoprazole 40 mg PO BEDTIME 12/04/20 12/12/20 History potassium chloride 20 meq PO BEDTIME 12/04/20 12/12/20 History atorvastatin 40 mg PO BEDTIME 12/05/20 12/12/20 History cyclobenzaprine 10 mg PO BID PRN 12/05/20 12/12/20 History diclofenac sodium 150 mg PO BEDTIME 12/05/20 12/12/20 History methotrexate sodium 7.5 mg PO Q7D 12/05/20 12/12/20 History Allergies Allergy/AdvReac Type Severity Reaction Status Date / Time No Known Allergies Allergy Verified 12/12/20 10:50 PFSH Acute PFSH: Medical History AAA (abdominal aortic aneurysm) Hyperlipidemia Hypertension Sleep apnea Surgical History H/O left knee surgery History of cholecystectomy Hx of tonsillectomy Family History Father CAD (coronary artery disease) Hypertension Mother Hypertension Other FH: CABG (coronary artery bypass surgery) Myocardial infarction Pacemaker Social History Smoking and tobacco status: current every day smoker cigarettes Alcohol intake: former Vitals/I&O/Wt Last Vital Signs Temp 97.8 F 12/05/20 07:42 Pulse 68 12/05/20 07:42 Resp 18 12/05/20 07:42 BP 133/59 12/05/20 07:42 Pulse Ox 98 12/05/20 07:42 12/04/20 12/05/20 12/05/20 22:59 06:59 14:59 Intake Total 480 / 840 150 / 990 Output Total 1000 / 1000 650 / 1650 Balance -520 / -160 -500 / -660 Weight last 48 hrs Weight 262 lb Physical Exam Narrative: EXAM NARRATIVE: GENERAL: Patient is alert, awake and oriented x3. [] NECK: No jugular vein distension. [] HEENT: No cyanosis. No icterus. No pallor. [] HEART: Regular S1 and S2. No murmur, rub or gallop. [] LUNGS: Clear to auscultate bilaterally. [] ABDOMEN: Soft, nontender and nondistended. Positive bowel sounds. No guarding, rebound or tenderness. [] CENTRAL NERVOUS SYSTEM: Grossly nonfocal. [] EXTREMITIES: Lower extremities with no edema bilaterally. Pulses palpable in the lower extremities, both dorsalis pedis and posterior tibial. [] Hospital Course Hospital Course Van Dwyer is a 65 year old male with PMH of CAD, had severe lifestyle limiting claudication more on the left side. He underwent peripheral angiogram yesterday that showed severe mid SFA stenosis for which he underwent successful revascularization with balloon angioplasty. He also has Sfa occlusion on the right side. In case he has significant claudication on the right side, we will schedule for staged revascularization SSS Data Data Completed and Pending: Pending at discharge Category Date Time Status BILLING ASSOCIATE request for service Routin e Exams 12/04/20 09:00 Taken Discharge Plan Discharge Patient Disposition: Home Condition: Stable Prescriptions: Continued (DME) Hinged knee brace See Rx Instructions .Route .MEDSUPPLY Qty: 1 RF: 0 gabapentin 300 mg capsule 300 mg PO BEDTIME RF: 0 tizanidine 4 mg capsule 4 mg PO BEDTIME RF: 0 cetirizine 10 mg capsule 10 mg PO BEDTIME RF: 0 (DME) oxygen-air delivery systems Device See Rx Instructions .ROUTE .MEDSUPPLY Qty: 1 RF: 0 nitroglycerin 0.4 mg tablet, sublingual 0.4 mg SUBLINGUAL Q5M PRN (Reason: chest pain) Qty: 25 RF: 3 ibuprofen 800 mg tablet 1,600 mg PO BEDTIME RF: 0 amlodipine 5 mg tablet 5 mg PO BEDTIME RF: 0 aspirin 81 mg tablet,delayed release (DR/EC) 81 mg PO BEDTIME RF: 0 furosemide 40 mg tablet 40 mg PO BEDTIME RF: 0 cilostazol 50 mg tablet 100 mg PO BEDTIME RF: 0 clopidogrel 75 mg tablet 75 mg PO BEDTIME RF: 0 pantoprazole 40 mg tablet,delayed release (DR/EC) 40 mg PO BEDTIME RF: 0 metoprolol tartrate 25 mg tablet 25 mg PO BEDTIME RF: 0 potassium chloride 20 mEq tablet extended release 20 meq PO BEDTIME RF: 0 No Action cyclobenzaprine 10 mg tablet 10 mg PO BID PRN (Reason: Muscle Spasm) RF: 0 atorvastatin 40 mg tablet 40 mg PO BEDTIME RF: 0 methotrexate sodium 2.5 mg tablet 7.5 mg PO Q7D RF: 0 diclofenac sodium 75 mg tablet,delayed release (DR/EC) 150 mg PO BEDTIME RF: 0 Discharge Orders: Discharge Order (Routine); Ordered 12/05/20 Ordered By: oCnner Rolon Referrals: Tristan Garcia FNP [Nurse Practitioner] - 7-10 days (You have an follow up with tristan on December 12 at 1015 am. If you have any questions or need to reschedule please call [phone]. ) Mena Noble MD [Physician] - 1 month (You have an appt with Aide on feb 05 at 1030 am. If you have any questions or need to reschedule please call [phone].) Discharge Diet: Cardiac Discharge Activity: Increase activity as tolerated Patient Instructions: Peripheral Vascular Angioplasty (DC), Chest Pain Stoplight, Post Angiogram Home Care Instructions Activity Restrictions/Additional Instructions: Please do not lift more than 5 pounds of weight for the next 5 days Attestations Medical Necessity Statement*: Care not expected to cross 2 midnights. Time Spent in Patient Care*: less than 30 min Quality Metrics Clinical Quality Measures: During this hospital stay, did patient experience: None Coding Level of Care Code Acute Fractionating Still Operator for Abram Davis
[2020-12-05] MEDS: clopidogrel 75 mg Tablet PO (08:56)
[2020-12-05] MEDS: aspirin 81 mg EC Tablet PO (08:56)
[2020-12-05 09:56] VITALS: BP 133/59; PULSE 68; RESP 18; TEMP 36.6; O2SAT 98
--- NOTE | 2020-12-05 10:11 | PC.NURSE ---
discharge instructions given and explained.pt verb understanding of instructions.discharged via w/c to exit at this time.spouse to drive pt home.
--- NOTE | 2020-12-11 12:15 | PC.NURSE ---
Discharge packet printed for [employer].
== END 2020-12-05 10:11 | disposition home or self-care (01) ==
LOC: CCL 08:05 → CSU 10:38
PROVIDERS: PCP Nurse Practitioner Family; Visit Provider Internal Medicine
DX: I70.211 Atherosclerosis of native arteries of extremities with intermittent claudication, right leg (principal); I10 Essential (primary) hypertension; E78.5 Hyperlipidemia, unspecified; G47.30 Sleep apnea, unspecified; Z82.49 Family history of ischemic heart disease and other diseases of the circulatory system; F17.210 Nicotine dependence, cigarettes, uncomplicated; I25.10 Atherosclerotic heart disease of native coronary artery without angina pectoris
CPT/HCPCS: 36415; 37224; 75625; 75716; 80048; 85025; 85730; C1725; C1769; C1887; C1894; J1644; J2250; J3010; J7030; Q0163; Q9967

== ENCOUNTER → 2020-12-12 11:26 | Outpatient (BNVA) | payer MEDICARE, SELFPAY | PROVIDERS: PCP Nurse Practitioner Family; Visit Provider Nurse Practitioner Family | DX: I25.119 Atherosclerotic heart disease of native coronary artery with unspecified angina pectoris (principal); I73.9 Peripheral vascular disease, unspecified | CPT/HCPCS: 80048 ==

== ENCOUNTER → 2021-01-06 11:10 | Outpatient (BNVA) | payer MEDICARE, SELFPAY | PROVIDERS: PCP Nurse Practitioner Family; Visit Provider Internal Medicine Cardiovascular Disease | DX: I25.119 Atherosclerotic heart disease of native coronary artery with unspecified angina pectoris (principal); I73.9 Peripheral vascular disease, unspecified | CPT/HCPCS: 80048 ==

== ENCOUNTER 2021-01-31 09:21 | Outpatient (CLI) | payer MEDICARE, SELFPAY ==
--- NOTE | 2021-01-31 10:00 | CT_ITS ---
WS: [id number] CTA ABDOMINAL AORTA WITH RUNOFF TECHNIQUE: Contrast enhanced CTA of the abdominal aorta with bilateral lower extremity runoff. Multip lanar reformatted images were obtained. MIP reformats were also reviewed. CLINICAL INFORMATION: PVD COMPARISON: CT 2019 DLP: 2427.[address] scans at [facility] use at least one of these dose optimization techniques: automat ed exposure control; mA and/or kV adjustment per patient size (includes targeted exams where dose is matched to clinical indication); or iterative reconstruction. FINDINGS: Infrarenal abdominal aortic aneurysm measuring 3.1 x 2.8 cm. Moderate aortic atheromatous d isease. Celiac and SMA are patent. BO is patent. Renal ostia are patent. Normal renal parenchymal en hancement. Diffuse fatty infiltration liver. Cholecystectomy clips. Slight atelectasis in the lung bases. Normal GE junction. Normal pancreas. Adrenal glands are normal. Normal renal parenchymal enhancement. No hy dronephrosis. Normal spleen. No abdominal lymphadenopathy. Incidental fat-containing umbilical hernia . Fat-containing supraumbilical hernia. No herniated bowel. RIGHT: Mild stenosis of the right common iliac origin which is patent. Severe stenosis in the distal common iliac artery at the external iliac origin. Internal iliac artery is patent. External iliac art james is patent. Mild to moderate narrowing right common femoral artery which remains patent. Mild sten osis at the superficial femoral artery origin which is occluded in the upper thigh. Deep femoral jeanna ry is patent. Superficial femoral artery remains occluded to the popliteal hiatus. Reconstitution of the popliteal artery [id number]. Popliteal artery remains patent to the trifurcation. Three-vesse l runoff to the ankle. LEFT: Left common iliac artery is patent. External and internal iliac arteries are patent. Common fem oral artery is patent with chronic appearing dissection. No flow-limiting stenosis. Superficial and d eep femoral arteries are patent at the origin. Superficial femoral artery is patent to the popliteal hiatus. Popliteal artery is patent with mild segmental stenosis. Three-vessel runoff to the ankle. CT/CT angio abd aorta runof [id number] IMPRESSION: No significant vascular changes since January 22, 2020 1. RIGHT: High-grade stenosis right distal common iliac artery at the external iliac artery origin. Right superficial femoral artery is occluded in the upper thigh and remains occluded to the popliteal hiatus. Popliteal artery reconstit utes above the knee and is patent to the trifurcation. Normal 3 vessel runoff t o the right ankle. 2. LEFT: Left common iliac, external iliac, common femoral arteries are patent . Superficial femoral femoral artery is patent. Small chronic appearing dissect ion in the common femoral artery. Popliteal artery remains patent to the trifur cation with three-vessel runoff to the ankle. 3. Tortuous infrarenal abdominal aorta with infrarenal abdominal aortic aneury sm measuring 3.1 x 2.8 cm. 4. Nonvascular findings as described above.
[2021-01-31] MEDS: iohexol 350 mg/mL 100 mL Btl IV (10:12)
== END 2021-01-31 09:22 | disposition home or self-care (01) ==
PROVIDERS: PCP Nurse Practitioner Family; Visit Provider Thoracic Surgery (Cardiothoracic Vascular Surgery)
DX: I73.9 Peripheral vascular disease, unspecified (principal); I71.4 Abdominal aortic aneurysm, without rupture; I70.8 Atherosclerosis of other arteries
CPT/HCPCS: 75635; Q9967

== ENCOUNTER 2021-10-13 09:51 | Outpatient (CLI) | payer MEDICARE, SELFPAY ==
--- NOTE | 2021-10-13 10:10 | USCV_ITS ---
Van Dwyer Age: 66 Gender: M : 1955 Exam Date: 10/13/2021 10:07 Ordering Phys: Dani Sanabria MD (Andy) ([email or web address]) Technologist: Exam Location: [facility] [place] Indication: aaa HISTORY: Diameter (cm) AP x Transverse x Length Velocity (cm/s) Waveform Prox Aorta: 2.68 x 2.47 x 67.30 Triphasic Mid Aorta: 3.38 x 3.71 x 67.30 Biphasic Distal Aorta: 3.40 x 3.80 x 55.60 Biphasic Right Iliac Prox: 1.58 x 1.87 x 139.60 Triphasic Left Iliac Prox: 1.52 x 1.55 x 125.40 Triphasic Stent Prox Landing x x Aneurysmal Sac Max x x Lt Lat Sac Dim Rt Lat Sac Dim Stent Dist Landing x x Right Iliac Stent x x Left Iliac Stent x x Right Renal Art Left Renal Art FINDINGS: This is on dilatation of the mid and distal abdominal aorta. Mild to moderate plaques in the abdominal aorta. The proximal common iliac artery also appears to be a dilated CONCLUSIONS 1. Small fusiform aneurysms of the mid and distal abdominal aorta, measuring 3.38 x 3.71 proximally and 3.4 x 3.8 distally. 2. Ectatic proximal common iliac artery measuring 1.58 x 1.87 on the right side and 1.52 x 1.55 on the left side Compared to the study from 10/08/2020, there is slight increase in size of the abdominal aortic aneurysm-from 3.23 x 3.01 to 3.40 x 3.80.(Mid abdominal aortic aneurysm was noted documented in the previous study; ? Probably related to technical issues) Dr Nahum Hill MD [facility] (Electronically Signed) Final Date: 14 October 2021 08:54 S
== END 2021-10-13 09:52 | disposition home or self-care (01) ==
PROVIDERS: PCP Nurse Practitioner Family; Visit Provider Thoracic Surgery (Cardiothoracic Vascular Surgery)
DX: I71.4 Abdominal aortic aneurysm, without rupture (principal)
CPT/HCPCS: 93978

== ENCOUNTER → 2022-01-01 10:33 | Outpatient (BNVA) | payer MEDICARE, SELFPAY | PROVIDERS: PCP Nurse Practitioner Family; Visit Provider Nurse Practitioner Family | DX: I25.119 Atherosclerotic heart disease of native coronary artery with unspecified angina pectoris (principal); Z87.891 Personal history of nicotine dependence; I10 Essential (primary) hypertension | CPT/HCPCS: 99214 ==

== ENCOUNTER 2022-01-06 10:32 | Outpatient (CLI) | payer MEDICARE, SELFPAY ==
[2022-01-06 11:59] VITALS: BMI 39.4
--- NOTE | 2022-01-06 12:02 | ECG_ITS ---
[facility] Test Date: 2022-01-06 Pat Name: Van Dwyer Department: Room: Gender: Male Claims Clerk: Yaneli Root : 1955 Requested By: Jessica Garcia Order Number: [id number] El MD: Mena Noble M.D. Interpretive Statements NAME OF STUDY: LEXISCAN SESTAMIBI STRESS TEST INDICATION: Chest Pain PROCEDURE: At the baseline, the blood pressure was 154/66 mmHg, oxygen saturation 93% with a heart rate of 69 bpm. The electrocardiogram showed normal sinus rhythm, normal axis. Incomplete right bundle branch block. Nonspecific ST depression. The Lexiscan was infused over a period of 20 seconds. A total of 0.4 milligrams of Lexiscan was infused. The stress phase was continued for a total of 5 minutes. Heart rate at the end of the stress phase was 80 bpm, oxygen saturation 94% with a blood pressure of 155/80 mmHg. The EKG at the peak infusion revealed sinus rhythm at 80 bpm with no significant ST-T wave changes. Sestamibi was injected 20 seconds after the Lexiscan infusion. Blood pressure at the end of the recovery phase was 164/85 mmHg, oxygen saturation 93% with a heart rate of 78 beats per minute. CONCLUSION: 1. No significant EKG changes with the LexiScan infusion. 2. No LexiScan induced chest pain or cardiac arrhythmia. 3. Normal blood pressure and heart rate response. 4. Sestamibi/sestamibi perfusion scan pending; see separate report. Electronically Signed On 01-19-2022 9:25:05 CDT by Mena Noble M.D. [id number]
--- NOTE | 2022-01-06 12:02 | NMCV_ITS ---
NM shari perf SPECT r/s* [id number] Van wDyer Age: 66 Gender: M : 1955 Exam Date: 01/06/2022 12:59 Ordering Phys: Jessica Garcia Technologist: BRIE Joseph Exam Location: [facility] Indications: CORONARY ARTERY DISEASE STRESS TEST [facility] IMAGE PROTOCOL Rest/Stress 1 Lexiscan Day Radiopharmaceutical Dose (mCi) Administration Site Administered by Rest: Tc-99m 11.0 IV BRIE Rivero Sestamibi Stress:Tc-99m 33.0 IV BRIE Rivero Sestamibi Rest: 06-Jan-2022 60 Discovery 630 Stress: 06-Jan-2022 30 Discovery 630 0.4mg Lexiscan. Images obtained in supine and prone position. SPECT RESULTS Technical Quality: Excellent Raw Data Analysis: Normal Image Corrections: No attenuation or motion correction applied Summed Stress Score: 3 Summed Rest Score: 2 Summed Difference Score: 1 PERFUSION FINDINGS There is a small sized, fixed perfusion defect seen in the inferolateral wall. This is consistent with small sized prior infarct in the left circumflex artery territory. No evidence of ischemia FUNCTIONAL RESULTS (calculated via Gated SPECT) Stress Image LV EF (%): 67 Stress EDV (mL):114 TID: 0.96 Stress ESV (mL):38 FUNCTIONAL FINDINGS: There is normal left ventricular systolic function. IMPRESSIONS 1. Abnormal myocardial perfusion imaging with small sized prior infarct seen in the left circumflex artery territory. 2. LV systolic function is normal Conner Rolon MD (Electronically Signed) Final Date: 08 January 2022 10:43 S
[2022-01-06] MEDS: regadenoson 0.4 Mg/5 ml Syringe IVP (12:27)
[2022-01-06 12:46] VITALS: BP 164/85; PULSE 79
== END 2022-01-06 10:33 | disposition home or self-care (01) ==
LOC: CDL 10:35
PROVIDERS: PCP Nurse Practitioner Family; Visit Provider Nurse Practitioner Family
DX: R07.89 Other chest pain (principal)
CPT/HCPCS: 78452; 93017; A9500; J2785

== ENCOUNTER → 2022-01-13 09:46 | Outpatient (BNVA) | payer MEDICARE, SELFPAY | PROVIDERS: PCP Nurse Practitioner Family; Visit Provider Nurse Practitioner Family | DX: I25.119 Atherosclerotic heart disease of native coronary artery with unspecified angina pectoris (principal); I10 Essential (primary) hypertension; I73.9 Peripheral vascular disease, unspecified; Z87.891 Personal history of nicotine dependence | CPT/HCPCS: 99214 ==

== ENCOUNTER 2022-02-10 11:16 | Outpatient (CLI) | payer MEDICARE, SELFPAY ==
--- NOTE | 2022-02-10 13:15 | USCV_ITS ---
Van Dwyer Age: 66 Gender: M : 1955 Exam Date: 02/10/2022 11:56 Ordering Phys: Jessica Garcia Technologist: Exam Location: [facility]_ Indication: claudication Risk Factors: Smoker Previous Vascular Surgery: RIGHT LEFT BP: 140.0 / 86.00 BP: 140.0/ 83.00 0 0 Waveform Velocity (cm/s) Velocity (cm/s) Waveform Biphasic 65.3 Iliac Prox 138.0 Triphasic Biphasic 40.0 Iliac Mid 144.3 Triphasic Biphasic 29.1 Iliac Distal 112.9 Triphasic Monophasic 52.7 PATIENT ADMITTING CLERK 133.3 Triphasic Monophasic 56.2 SFA Prox 125.5 Triphasic Monophasic 92.8 SFA Mid 76.8 Triphasic Monophasic SFA Dist Triphasic 32.7 89.4 Monophasic 31.7 POP 75.6 Triphasic Monophasic 22.0 PARTS COUNTERPERSON 41.3 Triphasic Monophasic 19.6 DPA 31.8 Triphasic 0.6 YUE 1.0 FINDINGS Moderate to heavy diffuse plaques are noted in the iliac and femoral artery on the right side. The resting YUE on the right side of 0.6. Mild diffuse plaque in the left iliac and femoral artery. Resting YUE on the left side was 1.0. CONCLUSIONS Abnormal resting YUE on the right side, suggesting moderate to severe peripheral artery disease. Normal resting YUE on the left side suggesting no significant arterial obstruction. Now [address] Nahum Hill MD [facility] (Electronically Signed) Final Date: 10 February 2022 13:55 S
== END 2022-02-10 11:17 | disposition home or self-care (01) ==
LOC: RAD 11:18
PROVIDERS: PCP Nurse Practitioner Family; Visit Provider Nurse Practitioner Family
DX: I73.9 Peripheral vascular disease, unspecified (principal); R68.89 Other general symptoms and signs
CPT/HCPCS: 93925

== ENCOUNTER 2022-04-02 10:10 | Outpatient (CLI) | payer MEDICARE, SELFPAY ==
--- NOTE | 2022-04-02 10:30 | CT_ITS ---
WS: [id number] CTA ABDOMINAL AORTA WITH RUNOFF TECHNIQUE: Contrast enhanced CTA of the abdominal aorta with bilateral lower extremity runoff. Multip lanar reformatted images were obtained. MIP reformats were also reviewed. CLINICAL INFORMATION: claudication, abnormal YUE right leg COMPARISON: CTA 621 DLP: 1448.[address] scans at [facility] use at least one of these dose optimization techniques: automated e xposure control; mA and/or kV adjustment per patient size (includes targeted exams where dose is matc hed to clinical indication); or iterative reconstruction. FINDINGS:RIGHT: Mild stenosis of the right common iliac origin which is patent. Severe stenosis in th e distal common iliac artery at the external iliac origin unchanged. Internal iliac artery is patent. External iliac artery is patent. Mild to moderate segmental narrowing right common femoral artery wh ich remains patent unchanged. Progressed moderate stenosis at the superficial femoral artery origin which is occluded in the upper thigh. Deep femoral artery is patent. Superficial femoral artery remains occluded to the popliteal hi atus. Reconstitution of the popliteal artery [id number]. Popliteal artery remains patent to the t rifurcation. Three-vessel runoff to the ankle. LEFT: Left common iliac artery is patent. External and internal iliac arteries are patent. Common fem oral artery is patent with chronic appearing ulcerated plaque or dissection. No flow-limiting stenosi s. Superficial and deep femoral arteries are patent at the origin. Superficial femoral artery is lemon nt to the popliteal hiatus. Popliteal artery is patent with mild segmental stenosis. Three-vessel run off to the ankle. Calcification with stenosis at the tibioperoneal trunk Tortuous and lobulated infrarenal abdominal aortic aneurysm measuring 3.1 x 2.8 cm unchanged. Moderat e aortic atheromatous disease. Mild stenosis at the celiac origin. SMA is patent. BO is patent. Norm al renal parenchymal enhancement. Proximal renal arteries appear patent. Diffuse fatty infiltration l iver. Cholecystectomy clips. Normal GE junction. Normal pancreas. Adrenal glands are normal. Normal renal parenchymal enhancement. No hydronephrosis. Normal spleen. Incidental fat- containing umbilical hernia. Fat-containing supra umbilical hernia. No herniated bowel. Small bladder cystocele. CT/CT angio abd aorta runof 34093 IMPRESSION: 1. Stable tortuous infrarenal lobulated abdominal aortic aneurysm measuring 3. 1 x 2.8 cm unchanged. 2. RIGHT: Severe stenosis in the distal common iliac artery. Progressed stenos is at the RIGHT superficial femoral artery origin. SFA is occluded in the proxi mal thigh and remains occluded to the popliteal hiatus. Popliteal artery recons titutes above the knee via collateral flow with three-vessel runoff to the ankl e. 3. No other significant changes compared to previous.
[2022-04-02] MEDS: iohexol 350 mg/mL 100 mL Btl IV (11:12)
[2022-04-02 11:29] LABS: Blood Urea Nitrogen 13 mg/dL (8-23); Glomerular Filtration Rate 60.8 mL/min (90-130)
== END 2022-04-02 10:11 | disposition home or self-care (01) ==
LOC: RAD 10:11
PROVIDERS: PCP Nurse Practitioner Family; Visit Provider Nurse Practitioner Family
DX: I74.5 Embolism and thrombosis of iliac artery (principal); I70.201 Unspecified atherosclerosis of native arteries of extremities, right leg; I71.43 Infrarenal abdominal aortic aneurysm, without rupture
CPT/HCPCS: 75635; 82565; 84520

== ENCOUNTER 2022-05-06 07:16 | Outpatient (CLI) | payer MEDICARE, SELFPAY ==
[2022-05-06] VITALS (65 sets, daily range): BP systolic 124–194; BP diastolic 58–100; PULSE 63–78; RESP 12–28; TEMP 37.1; O2SAT 93–100; BMI 40.7
--- NOTE | 2022-05-06 07:24 | XACV_ITS ---
Ht: 170 cm Wt: 118 kg BSA: 2.42 m2 Any Known Allergies: No known allergies Gender: Male : 1955 Exam Type: Invasive Peripheral Vascular Procedure(s): Procedure Description: Peripheral Cath Diagnostic Procedure Exam Priority: Routine Lower Extremity Interventional Findings This patient has known peripheral arterial disease with a balloon angioplasty to his left superficial femoral artery about a year and a half ago. At that time his right superficial femoral artery was found to be occluded with a long segment occlusion essentially the entire length of the artery from just past the takeoff of the profunda down to the ostium of the popliteal artery. Plans were made back then to bring him back for an intervention on the right but it never occurred. More recently someone ordered a CTA with runoff showing these findings and so he was scheduled for an angiogram today. Please see the history of present illness of the H&P for details. The procedure was performed from the left common femoral artery. Some difficulty was encountered placing a catheter and a wire over the aortic bifurcation and down the common iliac on the right due to significant tortuosity in the common iliac and external iliac, as well as a small abdominal aortic aneurysm. Once a longer sheath was placed a wire and a seeker catheter were used to negotiate the long superficial femoral artery occlusion. Finally, the wire was placed into the popliteal artery and down toward the ankle. A 5 x 200mm balloon was used to angioplasty the entire superficial femoral artery. This revealed surprisingly good flow especially in the more proximal aspect of the vessel. More distally down toward the beginning of the popliteal there were some areas of narrowing and relatively slow flow. There was 1 particular short area of narrowing near the bone which was resistant to balloon inflation. This area revealed a very tight residual stenosis.. I was preparing to perform an atherectomy on this area when at the same time a patient with an acute inferior wall myocardial infarction came into the emergency room and this patient became agitated and somewhat combative making it difficult to proceed further. At that point I terminated the procedure since we ultimately achieved reasonable flow beyond the stenosis in the distal SFA and the vessel itself was open. My plan was to perform atherectomy and further balloon dilatation but the acute patient and this patient's mental status prevented me from doing so. I would have had to use anesthesiology's expertise to continue this procedure. The long-term plan will be to send him home on medications, and see how he does. If he is free of claudication we will simply leave things alone. If he is not, we will bring him back and perform atherectomy on the distal superficial femoral artery. Additionally, due to having to terminate this procedure prematurely, I was not able to image the left leg.. Conclusions Occluded right superficial femoral artery post balloon angioplasty with samaritan of flow. Recommendations Medical treatment for now. If continued claudication return for atherectomy of the distal superficial femoral artery. Anticoagulation: Heparin Hemodynamic Data Phase:Rest AO : 119.0 / 60.0 ( 82.0 ) @ 9:06:00 AM 94.0 / 64.0 ( 78.0 ) @ 9:14:00 AM 119.0 / 70.0 ( 92.0 ) @ 9:45:00 AM 131.0 / 80.0 ( 102.0 ) @ 9:53:00 AM Access Site Site: Right Femoral artery Sheath Size: 6 Fr Hemost... Success: Unsuccessful Procedure Details Findings Procedure Consent Obtained. Admit Source: Out Patient. Pre-Procedure Time Out. Identified patient by full name and date of as verbalized by the patient/guarantor. Does the consent match the physician's order: Yes. Accurate & Complete Informed Consent: Yes. Inpatient/Outpatient History & Physical on Chart: Yes. If H&P is completed, is and addenduem needed: No; If yes, is the addendum complete: N/A. Visualize and Verify Site with Patient/Guarantor: N/A. Relevant Radiology Images available: Yes. The risks, benefits, and alternatives of sedation and/or procedure were discussed by physician. The patient agrees to continue. Procedure started. Correct patient, site and procedure confirmed by cath team. PERRLA. Strong, equal hand airport tower controller bilaterally. Lungs clear x 5 lobes. IV Site on Arrival: 20 gauge in the right anticubital. IV Fluids: 0.9% NaCl at KVO. 0 mL infused prior to labor employment associate. Pre Procedural Pulses: bilateral posterior tibial was 1+. Pre Procedural Pulses: right dorsalis pedis was 1+. Pre Procedural Pulses: left posterior tibial was 3+. Pre Procedural Pulses: bilateral radial was 3+. right groin was prepped with chloroprep then draped in the usual sterile fashion. left groin was prepped with chloroprep then draped in the usual sterile fashion. Physician notified. Baseline sample Acquired. HR: 116 BPM. Physician arrived. Physician scrubbed in. Time out performed with cath team. Lidocaine 1% infiltrated to the left groin. Baseline sample Acquired. HR: 79 BPM. Arterial access obtained. A 5FrFr RIM catheter in over wire. 98% pulse ox. 96% pulse ox. standard wire out. Left common iliac selected and arteriogram with runoff performed @ 10 mL/sec for a total of 30 mL. glidewire inserted. catheter out over glidewire. A 6FrFr IM catheter in over wire. glide wire out. catheter out over wire. short 6F sheath exchanged for 45cm 6F flexer sheath. Seeker inserted over the glidewire. out with glide wire. contrast hand injected through catheter. glide wire in. glide wire out. contrast hand injection performed through seeker. Glidewire inserted. seeker out. Balloon inserted over the wire to the superficial femoral. sheath hooked to kvo. Inflation number : 1 A AB [place]on 35 ROTARY DRIER OPERATOR Catheter [id number] was prepped and advanced across the Mid Superficial Femoral, Right , then inflated to 8 CATARINA for 1:01 seconds. Inflation number: 2 The AB [place]on 35 ROTARY DRIER OPERATOR Catheter [id number] was reinflated across the Mid Superficial Femoral, Right, to 8 CATARINA for 1:00 seconds. results checked. 93% pulse ox. Inflation number: 3 The AB [place]on 35 ROTARY DRIER OPERATOR Catheter [id number] was reinflated across the Mid Superficial Femoral, Right, to 6 CATARINA for 0:12 seconds. results checked. Balloon out. Inflation number : 4 A AB ARMADA 35 OTW [id number] was prepped and advanced across the Mid Superficial Femoral, Right , then inflated to 6 CATARINA for 1:02 seconds. Balloon out. results checked. Seeker catheter inserted over the wire. catheter attached to Normal Saline flush at KVO to maintain patency. results checked. long sheath coming out, short sheath going in. Sheath(s) sutured into position with 2-0 silk and sterile 4x4's and Op-site applied over the site. No oozing or signs and symptoms of hematoma noted. Arterial sheath flushed and connected to tranducer and pressure bag with heparinized saline. Post Procedure: Pulses reassessed and unchanged. PERRLA. Strong, equal hand airport tower controller bilaterally. No VTE prophylaxis required. Medication's Wasted: Heparin = 4000 units. Total IV fluids: 106 mL. Estimated blood loss: 5mL-10mL. Complications: none. Responsiveness - Normal response to verbal stimuli; alert and oriented, PERRLA. Airway - Unaffected, no intervention required; spontaneous ventilation. Circulation: W/N/L, pulses unchanged. Nausea/Vomiting: No. Post-op diagnosis: pad. Procedure completed. Patient transferred by bed to ICU. Vital chart was stopped. Procedure Medications Start: 8:42 AM Stop: 8:42 AM Medication: Versed Amount: 1 mg Route: I.V. Start: 8:42 AM Stop: 8:42 AM Medication: Fentanyl Amount: 50 mcg Route: I.V. Start: 8:45 AM Stop: 8:45 AM Medication: Versed Amount: 1 mg Route: I.V. Start: 8:45 AM Stop: 8:45 AM Medication: Fentanyl Amount: 50 mcg Route: I.V. Start: 8:56 AM Stop: 8:56 AM Medication: Versed Amount: 1 mg Route: I.V. Start: 9:06 AM Stop: 9:06 AM Medication: Versed Amount: 1 mg Route: I.V. Start: 9:06 AM Stop: 9:06 AM Medication: Fentanyl Amount: 50 mcg Route: I.V. Start: 9:16 AM Stop: 9:16 AM Medication: Versed Amount: 1 mg Route: I.V. Start: 9:16 AM Stop: 9:16 AM Medication: Fentanyl Amount: 50 mcg Route: I.V. Start: 9:20 AM Stop: 9:20 AM Medication: Heparin Amount: 5000 units Route: I.V. Start: 9:35 AM Stop: 9:35 AM Medication: Versed Amount: 1 mg Route: I.V. Start: 9:41 AM Stop: 9:41 AM Medication: Fentanyl Amount: 50 mcg Route: I.V. Start: 9:44 AM Stop: 9:44 AM Medication: Versed Amount: 1 mg Route: I.V. Start: 9:44 AM Stop: 9:44 AM Medication: Fentanyl Amount: 50 mcg Route: I.V. Start: 9:53 AM Stop: 9:53 AM Medication: Versed Amount: 1 mg Route: I.V. Start: 10:02 AM Stop: 10:02 AM Medication: Versed Amount: 1 mg Route: I.V. Start: 10:02 AM Stop: 10:02 AM Medication: Fentanyl Amount: 50 mcg Route: I.V. Start: 10:07 AM Stop: 10:07 AM Medication: Versed Amount: 1 mg Route: I.V. Start: 10:07 AM Stop: 10:07 AM Medication: Fentanyl Amount: 50 mcg Route: I.V. I, the attending physician, have reviewed and verified all procedure medications. Yes, all medications given per verbal order History/Risk Factors Hypertension: Yes Dyslipidemia: Yes Peripheral Arterial Disease (PAD): Yes Obesity: No Tobacco Use: Former Prior Interventions PCI: No CABG: No Valve Surgery: No Report Signatures Finalized by Dr. Osmany Arana MD on 05/06/2022 11:52 AM
[2022-05-06] MEDS: diphenhydrAMINE 50 mg Capsule PO (07:39)
[2022-05-06 08:05] LABS: Basophils % 0.6 %; Eosinophils # 0.2 10^3/uL (0.0-0.8); Eosinophils % 4.5 %; Hematocrit 40.6 % (42.0-52.0); Hemoglobin 13.8 g/dL (11.7-16.6); Lymphocytes # 1.2 10^3/uL (0.8-4.8); Lymphocytes % 21.9 %; Mean Corpuscular Hemoglobin 32.1 pg (28.0-34.0); Mean Corpuscular Volume 94.4 fl (80-94); Mean Platelet Volume 9.6 fL (7.4-10.4); Monocytes # 0.3 10^3/uL (0.2-0.9); Monocytes % 5.5 %; Neutrophils # 3.56 10^3/uL (1.8-7.7); Neutrophils % 67.1 %; Nucleated Red Blood Cells % 0 %; Platelet Count 253 10^3/cmm (130-400); Red Cell Distribution Width 15.9 % (12.1-15.1); White Blood Count 5.3 10^3/uL (4.0-10.0)
[2022-05-06 08:24] LABS: Blood Urea Nitrogen 15 mg/dL (8-23); Calcium 9.2 mg/dL (8.5-10.5); Carbon Dioxide 25 mmol/L (22-29); Chloride 102 mmol/L (98-107); Glomerular Filtration Rate 60.6 mL/min (90-130); Glucose 99 mg/dL (65-115); Osmolality Calculated 289 mOsm/kg (285-295); Sodium 139 mmol/L (136-145)
--- NOTE | 2022-05-06 08:24 | P.HP_ITS ---
Providers/Chief Complaint Admitting Physician: codey Primary Care Provider: REBECCA Nielsen Chief Complaint: I73.9 Peripheral vascular disease, unspecified History of Present Illness Van Dwyer is a 67 year old male who was set up for peripheral angiography by the nurse practitioner. I am not sure what has happened since she saw him in December of this year since there are no other visits. Patient has a history of peripheral arterial disease. His last and I think the only intervention to his lower extremities was in November of last year which involved an angioplasty of the left superficial femoral artery. There were no complete occlusions. He has diffuse disease. At that time his right superficial femoral artery was found to be occluded from just beyond the origin down to just above the knee at the origin of the popliteal artery. It was planned to bring him back but that has never happened. It is now well past a year later. Someone ordered a CT angiogram with runoff. This was accomplished on the of last month now about a month ago. There was a distal common iliac artery stenosis which is noted to be severe and a SFA occlusion as noted previously. There apparently is three-vessel runoff below both knees. There is collateral flow from the profunda to the popliteal and below on the right. The patient is somewhat cantankerous. He was called yesterday and told the staff that he refused to stay any more than a couple hours after the procedure was completed. Our office called him and told him that if he has an intervention it is strongly recommended he stay overnight. He initially put up quite a bit of resistance but ultimately relented. He is having fairly classic claudication on the right. He has no open wounds or sores. He has coronary disease and has had a circumflex stent. His last sestamibi was in December of this year showing a small fixed defect in the distribution of the circumflex without ischemia. His renal function has been normal. He also has a 3.1 x 2.8 cm AAA. Other chronic problems include obesity, hypertension, dyslipidemia, sleep apnea, prior tobacco abuse, COPD. Review of Systems Narrative: Review of systems is negative other than what is in history of present illness Medications/Allergies Home Medications Medication Instructions Recorded Confirmed Last Taken Type cetirizine 10 mg capsule 10 mg PO BEDTIME 01/11/20 05/05/22 04/02/20 19:00 History gabapentin 300 mg capsule 300 mg PO BEDTIME 01/11/20 05/05/22 04/02/20 19:00 His tory tizanidine 4 mg capsule 4 mg PO BEDTIME 01/11/20 05/05/22 04/02/20 19:00 History nitroglycerin 0.4 mg sublingual 0.4 mg sublingual Q5M PRN chest 01/30/20 05/05/22 Unknown Rx tablet pain #25 tabs Hinged knee brace #1 ea 05/20/20 01/13/22 Unknown Rx ibuprofen 800 mg tablet 1,600 mg PO BEDTIME 09/12/20 05/05/22 Unknown History aspirin 81 mg tablet,delayed 81 mg PO BEDTIME 12/04/20 05/05/22 Unknown History release furosemide 40 mg tablet 40 mg PO BEDTIME 12/04/20 05/05/22 Unknown History cyclobenzaprine 10 mg tablet 10 mg PO BID PRN Muscle Spasm 12/05/20 05/05/22 Unk nown History diclofenac sodium 75 mg 150 mg PO BEDTIME 12/05/20 05/05/22 Unknown History tablet,delayed release methotrexate sodium 2.5 mg tablet 7.5 mg PO Q7D 12/05/20 05/05/22 Unknown Hist ory cholecalciferol (vitamin D3) 125 125 mcg PO DAILY 03/07/21 05/05/22 Unknown History mcg (5,000 unit) capsule atorvastatin 40 mg tablet 40 mg PO BEDTIME #90 tabs 07/08/21 05/05/22 Unknown Rx metoprolol tartrate 25 mg tablet 12.5 mg PO BID #90 tabs 01/05/22 05/05/22 Unknown Rx clopidogrel 75 mg tablet 75 mg PO BEDTIME #90 tabs 01/14/22 05/05/22 Unknown Rx pantoprazole 40 mg tablet,delayed See Rx Instructions .Route 01/14/22 05/05/22 Unknown Rx release .COMPLEX #90 tabs potassium chloride 20 mEq 20 meq PO BEDTIME #180 tabs 02/23/22 05/05/22 Unknown Rx tablet,extended release cilostazol 50 mg tablet 100 mg PO BEDTIME #180 tabs 03/24/22 05/05/22 Unknown Rx amlodipine 5 mg tablet 5 mg PO BEDTIME #90 tabs 04/09/22 05/05/22 Unknown Rx Allergies Allergy/AdvReac Type Severity Reaction Status Date / Time No Known Allergies Allergy Verified 01/13/22 09:40 PFSH Acute PFSH: Medical History AAA (abdominal aortic aneurysm) AAA (abdominal aortic aneurysm) without rupture Claudication Hyperlipidemia Hypertension Sleep apnea Surgical History H/O left knee surgery History of cholecystectomy Hx of tonsillectomy Family History Father CAD (coronary artery disease) Hypertension Mother Hypertension Other FH: CABG (coronary artery bypass surgery) Myocardial infarction Pacemaker Social History Smoking and tobacco status: former smoker Alcohol intake: former Physical Exam Narrative: GENERAL: In general he seems comfortable at rest, is somewhat cantankerous but cooperative. HEENT: Exam within normal limits. NECK: Supple without jugular vein distention. The carotid upstroke is normal without bruits. BACK: Exam normal. LUNGS: Clear. HEART: Regular rate and rhythm. ABDOMEN: Benign without organomegaly or tenderness. EXTREMITIES: No edema. Palpable pulses in the left lower extremity. No pulses below the groin on the right. NEUROLOGIC: Exam normal. SKIN: Unremarkable. Data : 05/06/22 07:53 05/06/22 07:53 A&P Assessment and plan (1) Claudication: (2) AAA (abdominal aortic aneurysm) without rupture: (3) Hyperlipidemia: Qualifiers: Hyperlipidemia type: mixed hyperlipidemia Qualified Code(s): E78.2 - Mixed hyperlipidemia (4) Coronary artery disease: Qualifiers: Coronary Disease-Associated Artery/Lesion type: [place] artery [place] vs. transplanted heart: [place] heart Associated angina: with unspecified angina Qualified Code(s): I25.119 - Atherosclerotic heart disease of [place] coronary artery with unspecified angina pectoris (5) Sleep apnea: Qualifiers: Sleep apnea type: unspecified type Qualified Code(s): G47.30 - Sleep apnea, unspecified (6) Hypertension: Qualifiers: Hypertension type: essential hypertension Qualified Code(s): I10 - Essential (primary) hypertension (7) Family history of ischemic heart disease and other diseases of the circulatory system: (8) PAD (peripheral artery disease): Plan Lower extremity angiography and possible intervention on the right. Attestations Medical Necessity Statement*: Outpatient in a bed for angiography of the lower extremities. 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 transplanted heart: [place] heart Associated angina: with unspecified angina Sleep apnea G47.30 Sleep apnea type: unspecified type Hypertension I10 Hypertension type: essential hypertension Family history of ischemic heart disease and other diseases of the circulatory system Z82.49 PAD (peripheral artery disease) I73.9
[2022-05-06] MEDS: sodium chloride 0.9% 1,000 ML 100 ML IV (10:25)
[2022-05-06] MEDS: pantoprazole DR 40 mg Tablet PO (12:14)
[2022-05-06 13:56] LABS: Partial Thromboplastin Time 29.6 SECONDS (23.9-36.7)
[2022-05-06] MEDS: fentaNYL 50 mcg/mL INJ 2mL IVP (14:33)
[2022-05-06] MEDS: metoprolol tartrate 25 mg Tablet 12.5 MG PO (17:38)
[2022-05-06] MEDS: HYDROcodone-acetaminophen 5-325 mg Tablet 1 TAB PO (19:42)
--- NOTE | 2022-05-06 19:46 | PC.NURSE ---
Received bedside report from CHARBEL Oquendo. Patient s/p peripheral angiogram with left groin access. Dressing remains c,d,i with no s/s of bleeding or hematoma formation observed. Patient c/o pain to back/legs. Medication given as ordered and documented. Discussed post cath care. Patient verbalized complete understanding. Will continue to monitor.
--- NOTE | 2022-05-06 19:47 | PC.NURSE ---
received from cardiac laboratory administrative director at 1020 via bed.report received.pt was drowsy but easily awakened.sr on monitor.left femoral arterial sheath intact to pressurized system.left groin drsg dry and intact and no hematoma noted.left leg warm to touch and with brisk capillary refill.palpable left dp pulse noted.at 1450,ptt sufficient to pull..50 mcg fentanyl given and left femoral arterial line dc'd and manual pressure applied x 20 min.vss through-out procedure.no hematoma formation noted.right leg remained warm to touch and with brisk capillary refill.palpable dp pulse noted.pt tolerated procedure well.site dressed with 2x2 gauze and secured with biocclusive drsg.pt instructed in activity restrictions s/p femoral artery sheath pull..and instructed to notify staff for any bleeding,pain,numbness..or for any concerns at all.pt verb understanding of instructions
[2022-05-06] MEDS: potassium chloride ER 20 mEq Tablet PO (21:19)
[2022-05-06] MEDS: cilostazol 100 mg Tablet PO (21:19)
[2022-05-06] MEDS: atorvastatin 40 mg Tablet PO (21:19)
[2022-05-06] MEDS: FUROsemide 40 mg Tablet PO (21:20)
[2022-05-06] MEDS: cetirizine 10 mg Tablet PO (21:20)
[2022-05-06] MEDS: amlodipine 5 mg Tablet PO (21:20)
[2022-05-06] MEDS: clopidogrel 75 mg Tablet PO (21:20)
[2022-05-06] MEDS: gabapentin 300 mg Capsule PO (21:20)
[2022-05-06] MEDS: tizanidine 4 mg Tablet PO (21:20)
[2022-05-06] MEDS: aspirin 81 mg EC Tablet PO (21:20)
[2022-05-06] MEDS: temazepam 15 mg Capsule PO (21:37)
[2022-05-06] MEDS: diclofenac 75 mg DR Tablet 150 MG PO (21:37)
--- NOTE | 2022-05-07 06:34 | P.DS_ITS ---
Discharge Providers Date of Admission: 05/06/22 11:34 Date of Discharge: May 07, 2022 Attending Provider at Admission: Osmany Arana MD Attending Provider at Discharge: Osmany Arana MD Primary Care Provider: REBECCA Nielsen Diagnoses at Discharge Discharge Diagnosis (1) Claudication: Status: Acute (2) AAA (abdominal aortic aneurysm) without rupture: Status: Acute (3) Hyperlipidemia: Status: Acute Qualifiers: Hyperlipidemia type: mixed hyperlipidemia Qualified Code(s): E78.2 - Mixed hyperlipidemia (4) Coronary artery disease: Status: Acute Qualifiers: Coronary Disease-Associated Artery/Lesion type: [place] artery [place] vs. transplanted heart: [place] heart Associated angina: with unspecified angina Qualified Code(s): I25.119 - Atherosclerotic heart disease of [place] coronary artery with unspecified angina pectoris Permanent problem details: s/p successful revascularization of mid Left circumflex artery (5) Sleep apnea: Status: Acute Qualifiers: Sleep apnea type: unspecified type Qualified Code(s): G47.30 - Sleep apnea, unspecified (6) Hypertension: Status: Acute Qualifiers: Hypertension type: essential hypertension Qualified Code(s): I10 - Essential (primary) hypertension (7) Family history of ischemic heart disease and other diseases of the circulatory system: Status: Acute (8) PAD (peripheral artery disease): Status: Acute Reason for Visit Reason for Visit: I73.9 Peripheral vascular disease, unspecified Brief History: Patient was brought in electively for purposes of angiography of the right lower extremity and intervention to the right superficial femoral artery. He has a history of peripheral arterial disease and last had an intervention to the left leg over a year ago. At that time his SFA on the right was found to be occluded. He was never brought back for reasons that are not clear. Originally he refused to stay any more than 2 or 3 hours after the procedure. He was told by the telephone conversation the day prior that we would not complete the procedure and thus he agreed to stay in order to prevent any bleeding. He relented. Hospital Course Hospital Course The procedure was done from the left common femoral artery. There is significant tortuosity of the external iliac on the right which made placing the wire quite difficult. This was complicated somewhat by the presence of a distal abdominal aortic aneurysm. Finally, the wire was negotiated through the occlusion. The SFA underwent balloon angioplasty with faith of blood flow. There was an area in the distal SFA which was resistant to balloon angioplasty. As I was about to prepare to change the equipment and perform an atherectomy, a patient with an acute inferior wall myocardial infarction arrived in the emergency room. Van had to be taken off the table to accommodate this patient. There was adequate flow around the distal lesion. The long-term plan will be to see how he does symptom arias and if he is well and not having any claudication we will leave well enough alone. If he does not do well and has pain in his leg, he could be brought back for an atherectomy of the distal superficial femoral artery. He did stay the night. The sheath was pulled without incident. At the time of his discharge there is no bleeding, hematoma or other vascular anomaly. He has been instructed not to lift any more than 5 pounds for 2 days. Physical Exam Narrative: GENERAL: In general he is awake alert and in no discomfort this morning HEENT: Exam within normal limits. NECK: Supple without jugular vein distention. The carotid upstroke is normal without bruits. BACK: Exam normal. LUNGS: Clear. HEART: Regular rate and rhythm. ABDOMEN: Benign without organomegaly or tenderness. EXTREMITIES: No edema. The left common femoral artery area reveals no hematoma, swelling, bleeding or other vascular anomaly. NEUROLOGIC: Exam normal. SKIN: Unremarkable. 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 Routine Exams 05/06/22 07:24 Completed Laboratory Results WBC 5.3 10^3/uL (4.0-10.0) 05/06/22 07:53 RBC 4.30 10^6/uL (4.1-5.3) 05/06/22 07:53 Hgb 13.8 g/dL (11.7-16.6) 05/06/22 07:53 Hct 40.6 % (42.0-52.0) L 05/06/22 07:53 MCV 94.4 fl (80-94) H 05/06/22 07:53 MCH 32.1 pg (28.0-34.0) 05/06/22 07:53 MCHC 34.0 g/dL (30.0-36.0) 05/06/22 07:53 RDW 15.9 % (12.1-15.1) H 05/06/22 07:53 Plt Count 253 10^3/cmm (130-400) 05/06/22 07:53 MPV 9.6 fL (7.4-10.4) 05/06/22 07:53 Neut % (Auto) 67.1 % 05/06/22 07:53 Lymph % (Auto) 21.9 % 05/06/22 07:53 [place]oard % (Auto) 5.5 % 05/06/22 07:53 Eos % (Auto) 4.5 % 05/06/22 07:53 Baso % (Auto) 0.6 % 05/06/22 07:53 Neut # (Auto) 3.56 10^3/uL (1.8-7.7) 05/06/22 07:53 Lymph # (Auto) 1.2 10^3/uL (0.8-4.8) 05/06/22 07:53 [place]oard # (Auto) 0.3 10^3/uL (0.2-0.9) 05/06/22 07:53 Eos # (Auto) 0.2 10^3/uL (0.0-0.8) 05/06/22 07:53 Baso # (Auto) 0.0 10^3/uL (0.0-0.1) 05/06/22 07:53 Nucleated RBC % (auto) 0 % 05/06/22 07:53 Nucleated RBCs # 0.0 /100WBC 05/06/22 07:53 APTT 29.6 SECONDS (23.9-36.7) 05/06/22 12:52 Sodium 139 mmol/L (136-145) 05/06/22 07:53 Potassium 4.0 mmol/L (3.5-5.1) 05/06/22 07:53 Chloride 102 mmol/L (98-107) 05/06/22 07:53 Carbon Dioxide 25 mmol/L (22-29) 05/06/22 07:53 Anion Gap 16.0 (5-19) 05/06/22 07:53 BUN 15 mg/dL (8-23) 05/06/22 07:53 Creatinine 1.2 mg/dL (0.7-1.2) 05/06/22 07:53 GFR Calculation 60.6 mL/min (90-130) L 05/06/22 07:53 Glucose 99 mg/dL (65-115) 05/06/22 07:53 Calculated Osmolality 289 mOsm/kg (285-295) 05/06/22 07:53 Calcium 9.2 mg/dL (8.5-10.5) 05/06/22 07:53 Procedures Performed Right lower extremity angiography with right superficial femoral artery angioplasty. Vitals Last Vital Signs Temp 98.8 F 05/06/22 08:30 Pulse 63 05/06/22 22:00 Resp 20 H 05/06/22 20:00 BP 129/60 05/06/22 20:00 Pulse Ox 98 05/06/22 20:00 O2 Del Method 05/06/22 19:16 O2 Flow Rate 3 05/06/22 19:16 Discharge Plan Discharge Patient Disposition: Home Condition: Stable Prescriptions: Continued (DME) Hinged knee brace See Rx Instructions .Route .MEDSUPPLY Qty: 1 0RF Rx Instructions: As directed gabapentin 300 mg capsule 300 mg PO BEDTIME tizanidine 4 mg capsule 4 mg PO BEDTIME cetirizine 10 mg capsule 10 mg PO BEDTIME nitroglycerin 0.4 mg tablet, sublingual 0.4 mg SUBLINGUAL Q5M PRN (Reason: chest pain) Qty: 25 3RF Rx Instructions: do not exceed 3 doses per episode cholecalciferol (vitamin D3) 125 mcg (5,000 unit) capsule 125 mcg PO DAILY ibuprofen 800 mg tablet 1,600 mg PO BEDTIME atorvastatin 40 mg tablet 40 mg PO BEDTIME Qty: 90 3RF metoprolol tartrate 25 mg tablet 12.5 mg PO BID Qty: 90 2RF pantoprazole 40 mg tablet,delayed release (DR/EC) See Rx Instructions .ROUTE .COMPLEX Qty: 90 2RF Dose Instruction: TAKE 1 TABLET BY MOUTH EVERY DAY Rx Instructions: TAKE 1 TABLET BY MOUTH EVERY DAY clopidogrel 75 mg tablet 75 mg PO BEDTIME Qty: 90 2RF potassium chloride 20 mEq tablet extended release 20 meq PO BEDTIME Qty: 180 1RF cilostazol 50 mg tablet 100 mg PO BEDTIME Qty: 180 1RF amlodipine 5 mg tablet 5 mg PO BEDTIME Qty: 90 3RF aspirin 81 mg tablet,delayed release (DR/EC) 81 mg PO BEDTIME furosemide 40 mg tablet 40 mg PO BEDTIME methotrexate sodium 2.5 mg tablet 7.5 mg PO Q7D Rx Instructions: on sundays diclofenac sodium 75 mg tablet,delayed release (DR/EC) 150 mg PO BEDTIME Discharge Orders: Discharge Order (Routine); Ordered 05/07/22 Ordered By: Osmany Arana Referrals: Jessica Garcia FNP [Nurse Practitioner] - 7-10 days (Check left common femoral entry site and chemistry panel) Discharge Diet: Usual diet Discharge Activity: Increase activity as tolerated and Limit activity as instructed Patient Instructions: Peripheral Vascular Angioplasty (DC), Opioid Safety Activity Restrictions/Additional Instructions: No lifting over 5 pounds for 2 days Discharge Attestations Time Spent in Discharge Care*: greater than 30 min Quality Metrics Clinical Quality Measures [ No reported AMI, CVA or VTE this stay] Coding Level of Care Code Established Pt Acute Chg FW DC note Patient Type Established History Detailed Exam Detailed Medical Decision Making Moderate Complexity Diagnoses Claudication I73.9 AAA (abdominal aortic aneurysm) without rupture I71.4 Hyperlipidemia E78.2 Hyperlipidemia type: mixed hyperlipidemia Coronary artery disease I25.119 Coronary Disease-Associated Artery/Lesion type: [place] artery [place] vs. transplanted heart: [place] heart Associated angina: with unspecified angina Sleep apnea G47.30 Sleep apnea type: unspecified type Hypertension I10 Hypertension type: essential hypertension Family history of ischemic heart disease and other diseases of the circulatory system Z82.49 PAD (peripheral artery disease) I73.9
[2022-05-07 08:11] VITALS: BP 120/75; PULSE 70
--- NOTE | 2022-05-07 08:13 | PC.NURSE ---
pt discharge but does not want to wait for us to do a follow-up appointment at [facility]. Instructed pt to call [facility] for a follow-up appointment in 7-10 days as instructed in his discharge papers for his wound and blood draw check. pt verbalizes understanding. discharge papers provided.
== END 2022-05-07 08:13 | disposition home or self-care (01) | DRG 253 ==
LOC: CCL 07:19 → CSU 05-07 03:54
PROVIDERS: PCP Nurse Practitioner Family; Visit Provider Internal Medicine Cardiovascular Disease
DX: I73.9 Peripheral vascular disease, unspecified (principal); I70.92 Chronic total occlusion of artery of the extremities; I71.40 Abdominal aortic aneurysm, without rupture, unspecified; E78.2 Mixed hyperlipidemia; I25.119 Atherosclerotic heart disease of native coronary artery with unspecified angina pectoris; G47.30 Sleep apnea, unspecified; I10 Essential (primary) hypertension; E66.9 Obesity, unspecified; Z68.41 Body mass index [BMI] 40.0-44.9, adult; Z82.49 Family history of ischemic heart disease and other diseases of the circulatory system; Z95.5 Presence of coronary angioplasty implant and graft; Z87.891 Personal history of nicotine dependence; J44.9 Chronic obstructive pulmonary disease, unspecified; Z79.02 Long term (current) use of antithrombotics/antiplatelets; Z79.82 Long term (current) use of aspirin
CPT/HCPCS: 36415; 37224; 75710; 80048; 85025; 85730; 96360; 96361; 99152; 99153; C1725; C1769; C1887; C1894; J0461; J1644; J2250; J3010; J3490; J7030; Q0163; Q9967

== ENCOUNTER → 2022-05-20 08:01 | Outpatient (BNVA) | payer MEDICARE, SELFPAY | PROVIDERS: PCP Nurse Practitioner Family; Visit Provider Nurse Practitioner Family | DX: I73.9 Peripheral vascular disease, unspecified (principal); Z87.891 Personal history of nicotine dependence | CPT/HCPCS: 80048; 99214 ==

== ENCOUNTER → 2022-05-27 14:56 | Outpatient (BNVA) | payer MEDICARE, SELFPAY | PROVIDERS: PCP Nurse Practitioner Family; Visit Provider Orthopaedic Surgery | DX: M17.0 Bilateral primary osteoarthritis of knee (principal); I73.9 Peripheral vascular disease, unspecified; I25.119 Atherosclerotic heart disease of native coronary artery with unspecified angina pectoris; I10 Essential (primary) hypertension; E78.2 Mixed hyperlipidemia; G47.30 Sleep apnea, unspecified; Z87.891 Personal history of nicotine dependence | CPT/HCPCS: 73560; 73565; 99213; 99214 ==

== ENCOUNTER 2022-07-15 11:16 | Outpatient (CLI) | payer MEDICARE, SELFPAY ==
--- NOTE | 2022-07-15 12:00 | CT_ITS ---
WS: [id number] CT LEFT knee, noncontrast HISTORY: pre op planning TECHNIQUE: Protocol for [facility] total knee replacement has been obtained. This includes axial imaging th rough the LEFT hip, LEFT knee and LEFT ankle. DLP: 929.01 mGy.cm COMPARISON: None available. LEFT hip: Normal. LEFT knee: Moderate to severe tricompartment osteoarthritis. Mild edema. Small suprapatellar effusion . LEFT ankle: Normal. CT/CT knee LT [facility] IMPRESSION: CT imaging provided for [facility] robotic total knee replacement.
== END 2022-07-15 11:17 | disposition home or self-care (01) ==
PROVIDERS: PCP Nurse Practitioner Family; Visit Provider Orthopaedic Surgery
DX: M17.0 Bilateral primary osteoarthritis of knee (principal)
CPT/HCPCS: 73700

== ENCOUNTER 2022-07-20 09:10 | Outpatient (CLI) | payer MEDICARE, SELFPAY | END 2022-07-20 09:11 | disposition home or self-care (01) | LOC: RT 07-30 09:10 | PROVIDERS: PCP Nurse Practitioner Family; Visit Provider Orthopaedic Surgery | DX: Z13.6 Encounter for screening for cardiovascular disorders (principal); I49.8 Other specified cardiac arrhythmias | CPT/HCPCS: 93005 ==

== ENCOUNTER 2022-07-27 15:43 | Observation (INO) | payer MEDICARE, SELFPAY ==
[2022-07-20 11:11] VITALS: BMI 40.7
--- NOTE | 2022-07-20 11:14 | ECG_ITS ---
[facility] Test Date: 2022-07-20 Pat Name: Van Dwyer Department: Room: Gender: Male Epidemiology Investigator: : [id number] Requested By: Clarissa Boo Order Number: [id number] S[place] MD: Conner Rolon M.D. Measurements Intervals [place] Rate: 67 P: 51 MD: 177 QRS: 23 QRSD: 105 T: 65 QT: 411 QTc: 435 Interpretive Statements SINUS RHYTHM WITH MARKED SINUS ARRHYTHMIA LOW QRS VOLTAGE IN PRECORDIAL LEADS [QRS DEFLECTION < 1.0 mV IN CHEST LEADS] MINIMAL ST DEPRESSION [0.025+ mV ST DEPRESSION] No previous ECG available for comparison Electronically Signed On 07-21-2022 7:49:20 [employer]IN LINE [employer]SEM[employer] by Conner Rolon M.D. [id number]
[2022-07-20 11:44] LABS: Basophils # 0.1 10^3/uL (0.0-0.1); Basophils % 0.8 %; Eosinophils # 0.4 10^3/uL (0.0-0.8); Eosinophils % 5.8 %; Hematocrit 39.4 % (42.0-52.0); Hemoglobin 13.2 g/dL (11.7-16.6); Lymphocytes # 1.9 10^3/uL (0.8-4.8); Lymphocytes % 30.1 %; Mean Corpuscular HGB Conc 33.5 g/dL (30.0-36.0); Mean Corpuscular Hemoglobin 31.8 pg (28.0-34.0); Mean Corpuscular Volume 94.9 fl (80-94); Mean Platelet Volume 8.9 fL (7.4-10.4); Monocytes # 0.7 10^3/uL (0.2-0.9); Monocytes % 10.5 %; Neutrophils # 3.26 10^3/uL (1.8-7.7); Neutrophils % 52.5 %; Nucleated Red Blood Cells % 0 %; Platelet Count 274 10^3/cmm (130-400); Red Blood Count 4.15 10^6/uL (4.1-5.3); Red Cell Distribution Width 15.7 % (12.1-15.1); White Blood Count 6.2 10^3/uL (4.0-10.0)
--- NOTE | 2022-07-20 11:45 | P.ANESASSM_ITS ---
Pre-Anesthetic Assessment Height/Weight: Height 1.7 m Weight 117.934 kg Preop Diagnosis: Severe life style limiting claudication Operation Date: 07/27/22 07:00 Proposed Procedures p left brett total knee/ 56462 M17.0(Left) - Wilmer Quigley MD Familial anesthetic complications: None Social Tobacco and No alcohol Exam alert, oriented x 3, clear to auscultation bilaterally and regular rate & rhythm Airway Dentition: full Pulmonary Chronic Obstructive Pulmonary Disease and Sleep Apnea CV/HEM Coronary Artery Disease (stent aproximately 3 years ago), Hypertension, Myocardial Infarction and Peripheral Vascular Disease CONCLUSION: 1. No significant EKG changes with the LexiScan infusion. 2. No LexiScan induced chest pain or cardiac arrhythmia. 3. Normal blood pressure and heart rate response. 4. Sestamibi/sestamibi perfusion scan pending; see separate report. PERFUSION FINDINGS 2021 ?There is a small sized, fixed perfusion defect seen in the inferolateral wall. ?This is consistent with small sized prior infarct in the left circumflex artery ?territory. No evidence of ischemia GI Gastroesophageal Reflux Disease Metabolic Morbid Obesity and Thyroid Disease Anesthetic Plan ASA status: 4 Anesthesia: Regional (specify below) (spinal + adductor canal) Risk of > 500 ml blood loss (7ml/kg in children): No Medications/Allergies Home Medications Medication Instructions Recorded Confirmed Last Taken Type cetirizine 10 mg capsule 10 mg PO BEDTIME 01/11/20 07/20/22 07/20/22 History gabapentin 300 mg capsule 300 mg PO BEDTIME 01/11/20 07/20/22 07/20/22 History tizanidine 4 mg capsule 4 mg PO BEDTIME 01/11/20 07/20/22 07/20/22 History nitroglycerin 0.4 mg sublingual 0.4 mg sublingual Q5M PRN chest 01/30/20 07/20/22 Unknown Rx tablet pain #25 tabs Hinged knee brace #1 ea 05/20/20 05/27/22 Unknown Rx ibuprofen 800 mg tablet 1,600 mg PO BEDTIME 09/12/20 07/20/22 07/20/22 History aspirin 81 mg tablet,delayed 81 mg PO BEDTIME 12/04/20 07/20/22 07/20/22 History release furosemide 40 mg tablet 40 mg PO BEDTIME 12/04/20 07/20/2223 History diclofenac sodium 75 mg 150 mg PO BEDTIME 12/05/20 07/20/22 07/20/22 History tablet,delayed release methotrexate sodium 2.5 mg tablet 7.5 mg PO Q7D 12/05/20 07/20/22 07/20/22 History cholecalciferol (vitamin D3) 125 125 mcg PO DAILY 03/07/21 07/20/22 07/20/22 History mcg (5,000 unit) capsule clopidogrel 75 mg tablet 75 mg PO BEDTIME #90 tabs 01/14/22 07/20/22 07/20/22 Rx pantoprazole 40 mg tablet,delayed See Rx Instructions .Route 01/14/22 07/20/22 07/20/22 Rx release .COMPLEX #90 tabs potassium chloride 20 mEq 20 meq PO BEDTIME #180 tabs 02/23/22 07/20/22 07/20/22 Rx tablet,extended release cilostazol 50 mg tablet 100 mg PO BEDTIME #180 tabs 03/24/22 07/20/22 07/20/22 Rx amlodipine 5 mg tablet 5 mg PO BEDTIME #90 tabs 04/09/22 07/20/22 07/20/22 Rx metoprolol tartrate 25 mg tablet 25 mg PO .HS 05/27/22 07/20/22 07/20/22 History atorvastatin 40 mg tablet 40 mg PO BEDTIME #90 tabs 06/01/22 07/20/22 07/20/22 Rx Allergies Allergy/AdvReac Type Severity Reaction Status Date / Time No Known Allergies Allergy Verified 05/27/22 14:51 [facility] Anesthesia Medical History AAA (abdominal aortic aneurysm) AAA (abdominal aortic aneurysm) without rupture Claudication Family history of ischemic heart disease and other diseases of the circulatory system Hyperlipidemia Hypertension Sleep apnea Surgical History H/O left knee surgery History of cholecystectomy Hx of tonsillectomy Family History Father CAD (coronary artery disease) Hypertension Mother Hypertension Other FH: CABG (coronary artery bypass surgery) Myocardial infarction Pacemaker Social History Smoking and tobacco status: former smoker Alcohol intake: former Data Anesthesia 07/20/22 11:30 07/20/22 11:30 Short CBC 07/20/22 Range/Units 11:30 WBC 6.2 (4.0-10.0) 10^3/uL Hgb 13.2 (11.7-16.6) g/dL Hct 39.4 L (42.0-52.0) % MCV 94.9 H (80-94) fl Plt Count 274 (130-400) 10^3/cmm Neut % (Auto) 52.5 % Neut # (Auto) 3.26 (1.8-7.7) 10^3/uL Cardiac Studies: Sestamibi Stress Test (Cardiology) 01/06
[2022-07-20 12:00] LABS: Anion Gap 11.6 (5-19); Blood Urea Nitrogen 12 mg/dL (8-23); Calcium 8.6 mg/dL (8.5-10.5); Carbon Dioxide 28 mmol/L (22-29); Chloride 100 mmol/L (98-107); Glomerular Filtration Rate 55.2 mL/min (90-130); Glucose 109 mg/dL (65-115); Osmolality Calculated 282 mOsm/kg (285-295); Potassium 3.6 mmol/L (3.5-5.1); Sodium 136 mmol/L (136-145)
[2022-07-27] VITALS (11 sets, daily range): BP systolic 129–166; BP diastolic 73–87; PULSE 72–86; RESP 16–20; TEMP 36.3–37; O2SAT 92–98
[2022-07-27] MEDS: CELEcoxib 200 mg Capsule 400 MG PO (11:53)
[2022-07-27] MEDS: acetaminophen 500 mg Tablet 1000 MG PO ×2 (11:53→21:49)
[2022-07-27] MEDS: gabapentin 300 mg Capsule PO ×2 (11:53→17:19)
[2022-07-27] MEDS: oxyCODONE 20 mg ER (12 HR) Tablet PO (11:54)
[2022-07-27] MEDS: sodium chloride 0.9% 1,000 ML 30 ML IV (11:55)
[2022-07-27] MEDS: HYDROmorphone 1 mg/mL INJ 1 mL 0.5 MG IVP (12:08)
--- NOTE | 2022-07-27 12:35 | P.HP_ITS ---
Same Day Surgery H&P Indication for Procedure/HPI DATE OF PROCEDURE: July 27, 2022 CHIEF COMPLAINT/INDICATIONFOR SURGICAL PROCEDURE: Osteoarthritis left knee here for left total knee arthroplasty PREOP DIAGNOSIS: Osteoarthritis Left knee PLANNED PROCEDURE: Operation Date: 07/27/22 13:10 Proposed Procedures p left brett total knee/ [address]3634 M17.0(Left) - Wilmer Quigley MD Van is here for elective left total knee arthroplasty. he at that time had recently undergone stent placement and was anticoagulated.? He was made to defer surgery until anticoagulants could be discontinued. he states that he has had pain for many years. He states that he has pain is in the anterior and posterior lateral knee. He states that he is only able to walk 50 feet before his pain becomes severe.? He has a a high [place].? He states the only way he is able to get around is to use his [id number] to cover any ground.? He states that he has had arthroscopic surgery on the left knee 5-6 years ago. He states that he has had these for cortisone injections in the past in both knees which gave him no significant improvement.? He has been taking Voltaren without help.? He states he is seeing his supervisor telephone answering service.? He now is ready to proceed with surgery. Medications/Allergies* Home Medications Medication Instructions Recorded Confirmed Type cetirizine 10 mg capsule 10 mg PO BEDTIME 01/11/20 07/27/22 History gabapentin 300 mg capsule 300 mg PO BEDTIME 01/11/20 07/27/22 History tizanidine 4 mg capsule 4 mg PO BEDTIME 01/11/20 07/27/22 History ibuprofen 800 mg tablet 1,600 mg PO BEDTIME 09/12/20 07/27/22 History aspirin 81 mg tablet,delayed 81 mg PO BEDTIME 12/04/20 07/27/22 History release furosemide 40 mg tablet 40 mg PO BEDTIME 12/04/20 07/27/22 History diclofenac sodium 75 mg 150 mg PO BEDTIME 12/05/20 07/27/22 History tablet,delayed release methotrexate sodium 2.5 mg tablet 7.5 mg PO Q7D 12/05/20 07/27/22 History cholecalciferol (vitamin D3) 125 125 mcg PO DAILY 03/07/21 07/27/22 History mcg (5,000 unit) capsule metoprolol tartrate 25 mg tablet 25 mg PO .HS 05/27/22 07/27/22 History Allergies/Adverse Reactions Allergy/AdvReac Type Severity Reaction Status Date / Time No Known Allergies Allergy Verified 07/27/22 11:38 Current Medications: Generic Name Dose Route Start Last Admin Trade Name Trip PRN Reason Stop Dose Admin Sodium Chloride 1,000 mls @ 30 mls/hr 07/27/22 11:45 07/27/22 11:55 Sodium Chloride 0.9% IV 07/28/22 11:44 30 mls/hr .Q24H SONNY Administration Pertinent History/Comorbid Conditions* Medical History (Updated 05/08/22 @ 00:00 by SIDNEY Pedraza) AAA (abdominal aortic aneurysm) AAA (abdominal aortic aneurysm) without rupture Claudication Family history of ischemic heart disease and other diseases of the circulatory system Hyperlipidemia Hypertension Sleep apnea Surgical History (Updated 02/01/20 @ 07:16 by Mena Noble MD) H/O left knee surgery History of cholecystectomy Hx of tonsillectomy Family History (Updated 01/30/20 @ 14:00 by Destiny Santos RN) CAD (coronary artery disease) Father Myocardial infarction FH: CABG (coronary artery bypass surgery) Pacemaker Hypertension Father Mother Social History Smoking and tobacco status: former smoker Alcohol intake: former Pertinent Exam Findings alert, oriented x 3, clear to auscultation bilaterally, regular rate & rhythm and operative site marked Tender left medial joint line Slight varus left knee RANGE OF MOTION: ? ? ? LEFT LIMB ? Extention:? [10] ? Flexion:? [100] Palpable crepitations beneath left telemetry Palpable dorsalis pedis pulses MOTOR: Strong quadriceps hamstrings tibialis anterior and extensor houses longus strength SENSATION: Intact to light touch Recommendations Surgery/Procedure today Coding Level of Care Code Acute Code for Chg Fwd
--- NOTE | 2022-07-27 12:47 | P.ANESUD_ITS ---
Pre-Anesthetic Update Pre-Anesthetic Assessment: Date of Surgery/Procedure: 07/27/22 Preop Noreen gnosis: Osteoarthritis Left knee Proposed Procedure: Operation Date: 07/27/22 13:10 Proposed Procedures p left brett total knee/ 52286 M17.0(Left) - Wilmer Quigley MD Any changes to Pre-Anesthetic Assessment?: No Last Intake: Intake Last Liquid Date 07/27/22 Last Liquid Time 07:00 Last Solid Date 07/26/22 Last Solid Time 19:00 Vitals: Temperature 98.6 F 07/27/22 11:36 Temperature Source Temporal Artery S can 07/27/22 11:36 Pulse Rate 83 07/27/22 11:36 Respiratory Rate 18 07/27/22 12:08 Respiratory Effort 07/27/22 12:08 Respiratory Depth Normal 07/27/22 12:08 Blood Pressure 157/81 07/27/22 11:36 Blood Pressure Carolyn n 106 07/27/22 11:36 Pulse Oximetry 95 07/27/22 12:08 Oxygen Delivery Me thod 07/27/22 11:36 Exam: Pre-Anes Outpt Exam: alert, oriented x 3, clear to auscultation bilaterally and regular rate & rhythm Cardiac Studies: Sestamibi Stress Test (Cardiology) 01/06
[2022-07-27] MEDS: ceFAZolin 2,000 MG in sodium chloride 0.9% (plus) 50 ML 100 MG IV ×2 (13:17→21:50)
[2022-07-27] MEDS: tranexamic acid 1,000 mg/10mL SDV 1000 MG IV (13:47)
[2022-07-27] MEDS: tranexamic acid 1,000 mg/10mL SDV 1000 MG IRRIGATION (14:09)
[2022-07-27] MEDS: EPINEPHrine 1 mg/mL INJ XX (14:09)
[2022-07-27] MEDS: ketorolac 30 mg/mL INJ XX (14:09)
--- NOTE | 2022-07-27 14:13 | ANES.PROC ---
Anesthesia Procedures Procedure/Date: 07/27/22 Nerve Block ^: Nerve Block 1: Main Anesthesia: spinal anesthesia block Time Out Performed: Yes Consent: requested by attending/covering physician, from patient, risks and benefits reviewed and patient agrees to proceed Nerve block location: adductor canal (left) Anesthesia monitors applied: pulse oximetry, EKG, BP cuff and oxygen Nerve block position: supine Anesthetic Used: ropivicaine 0.5% Amount of anesthesia used (mL): 20 Ultrasound used to: recognize landmarks Nerve Stimulator Used?: No Interscalene/Femoral BLK: 4 stimuplex 21 g needle used for position and inplane approach Injection: neg aspiration of heme Patient Tolerated Procedure: well Complications: none
--- NOTE | 2022-07-27 15:40 | XRR_ITS ---
PROCEDURE INFORMATION: Exam: XR Left Knee Exam date and time: 07/27/2022 3:53 PM Age: 67 years old Clinical indication: Device placement; Joint replacement hardware; Prior surgery; Surgery date: Post-operative (0-2 days); Surgery type: Left total knee arthroplasty TECHNIQUE: Imaging protocol: Radiologic exam of the Left knee. Views: 1 or 2 views. COMPARISON: CT knee LT ATA 07/15/2022 11:40 AM FINDINGS: Bones/joints: Recently placed left total knee arthroplasty in expected alignment. Osseous structures are intact. Negative for fracture. Soft tissues: Soft tissue swelling and gas noted in the anterior knee consistent with recent surgical procedure. XR/XR knee LT 1-2V [id number] IMPRESSION: Recently placed left total knee arthroplasty in expected alignment.
--- NOTE | 2022-07-27 15:41 | PM.OP ---
Operative Report Date of procedure: July 27, 2022 Pre-op diagnosis: Preop Diagnosis Osteoarthritis Left knee Post-op diagnosis: same Post-op diagnosis: Same Post-op findings: Same Procedure done: Left total knee arthroplasty Implants: Sharon Triathalon total knee arthroplasty components were used includin) Size 5 triathalon cruciate retaining femoral component 2) Size 5 Tritanium tibial component 3) Size 5/10 mm thickness CS tibial bearing insert Pathology: none sent Surgeon: Wilmer Quigley Network Programmer: Familia Mon Network Programmer: The nurse practitioner the nurse practitioner assisted with critical portions of the case including positioning, draping, exposure, component implantation, closure and dressing application and is present through the entirety of the case. Anesthesia: Nerve Block (Spinal, adductor canal block) Estimated blood loss (mL): 250 Findings: The patient eburnated bone over the medial femoral condyle, lateral femoral condyle and medial tibial plateau. He had thinning of the patellar articular cartilage however it tracked well with the trochlea of the femoral component. He had a preoperative fixed open degree varus deformity of the left knee and lacks 14 degrees of extension Condition: stable Disposition: PACU Procedure: The patient was taken to the operating room. Patient was given 1 g of tranexamic acid and 2 g of Ancef. The above anesthesia provided by the anesthesia service. A timeout was performed. The patient was prepped and draped in the usual fashion with the lower extremity exposed. A anterior incision was made, midline, from a point proximal to the patella to the distal tibial tubercle. The knee was entered through a medial parapatellar approach. The patella could be displaced laterally and the knee flexed. The patellar fat pad was resected to provide better visibility. Retractors were placed medially and laterally adjacent to the tibial plateau. At a point approximately 8 cm above the patella, 2 small incisions were made with a scalpel blade and 2 long threaded pins were placed into the anterior medial femur engaging both cortices. The femoral arrays were placed over these pins and secured. At a point 8 cm distal to the tibial tubercle. 2 shorter bicortical threaded pins were placed across the anterior medial tibia and the tibial arrays placed. A checkpoint was made just proximal and medial to the medial femoral condyle and just medial to the tibial plateau. Small osteotomes were placed in the joint in both flexion and extension to determine ligamentous laxity. The tibia was brought into 2 degrees of varus and the femur into 1 degree of varus and elevated 1 mm to provide 1 mm increase In extension to facilitate regaining full motion. The [employer] robot was then introduced to the field and the femur and tibia cut in accordance with our plan. he Hung and Nephew Fastseal was then used to provide hemostasis, particularly about the posterior capsule. A trial with the above components provided excellent stability and full range of motion. The femur was then prepared for the femoral pegs of the component in the tibia for the tibial component. The femur and tibia were then press-fit into place. An osteotome was used to remove the lateral 8 mm of the patella to minimize chances of later impingement. A neurectomy was accomplished circumferentially about the patella with electrocautery and lateral osteophytes removed. Surfaces were cleaned with a gentamicin solution. The femur and tibia were then press-fit into place. The posterior capsule and collateral ligaments were then injected with a solution of 100 mL of 0.2% ropivacaine, 1 mL of a 1:1000 epinephrine solution, 30 mg of Toradol, and 1 g of tranexamic acid. Final polyethylene component was then snapped into place into the tibia. The extensor retinaculum was closed with a running 1 Stratafix interrupted 1 Ethibond. The subcutaneous tissues were closed with 2-0 Vicryl and the skin was closed with a running 4-0 Stratafix. The wound was covered with a Dermabond Prineo dressing. It was covered with 4xrs and a compressive Tubigauze was applied. The patient was taken to recovery room in stable condition.
--- NOTE | 2022-07-27 16:11 | ANE.PACU2 ---
Inpatient post-anesthesia follow up: Airway intact: Yes Vital signs: Temperature 98.6 F Pulse Rate 83 Respiratory Rate 18 Blood Pressure 157/81 Pulse Oximetry 95 Oxygen Delivery Me thod Room Air Oxygen Flow Rate 6 Fraction of Inspir ed Oxygen Hydration adequate: Yes Nausea and vomiting: No Pain level: 2 Mental status: Baseline
[2022-07-27] MEDS: sodium chloride 0.9% 1,000 ML 100 ML IV (17:19)
[2022-07-27] MEDS: sennosides-docusate Tablet 2 TAB PO (17:19)
[2022-07-27] MEDS: pantoprazole DR 40 mg Tablet PO (17:19)
[2022-07-27] MEDS: cetylpyridinium Lozenge 1 EACH MUCOUS MEM (17:20)
[2022-07-27] MEDS: CELEcoxib 200 mg Capsule PO (17:20)
[2022-07-27] MEDS: metoprolol tartrate 25 mg Tablet PO (17:20)
[2022-07-27] MEDS: morphine 4 mg/mL SDV 1 mL 2 MG IVP (17:38)
[2022-07-27] MEDS: oxyCODONE 5 mg IR Tab/Cap PO (18:46)
[2022-07-27] MEDS: FUROsemide 40 mg Tablet PO (21:49)
[2022-07-27] MEDS: atorvastatin 40 mg Tablet PO (21:49)
[2022-07-27] MEDS: potassium chloride ER 20 mEq Tablet PO (21:49)
[2022-07-27] MEDS: aspirin 81 mg EC Tablet PO (21:50)
[2022-07-27] MEDS: cilostazol 100 mg Tablet PO (21:50)
[2022-07-27] MEDS: clopidogrel 75 mg Tablet PO (21:50)
[2022-07-27] MEDS: amlodipine 5 mg Tablet PO (21:51)
[2022-07-28] VITALS: BP 124/76; PULSE 72; RESP 18; TEMP 36.8; O2SAT 93
[2022-07-28] MEDS: sodium chloride 0.9% 1,000 ML 100 ML IV (01:56)
[2022-07-28 02:39] LABS: Hemoglobin 12.2 g/dL (11.7-16.6)
[2022-07-28 04:00] VITALS: BP 178/84; PULSE 78; RESP 17; TEMP 36.5; O2SAT 91
[2022-07-28] MEDS: acetaminophen 500 mg Tablet 1000 MG PO ×2 (04:59→12:41)
[2022-07-28] MEDS: CELEcoxib 200 mg Capsule PO (04:59)
[2022-07-28] MEDS: ceFAZolin 2,000 MG in sodium chloride 0.9% (plus) 50 ML 100 MG IV ×2 (05:00→12:49)
[2022-07-28 08:32] VITALS: BP 161/75; PULSE 87; RESP 16; TEMP 36.9; O2SAT 91
[2022-07-28 08:46] VITALS: RESP 18
[2022-07-28] MEDS: oxyCODONE 5 mg IR Tab/Cap PO (08:46)
[2022-07-28] MEDS: sennosides-docusate Tablet 2 TAB PO (08:49)
[2022-07-28] MEDS: gabapentin 300 mg Capsule PO (08:49)
--- NOTE | 2022-07-28 10:30 | PC.CHAP ---
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 hvac maintenance technician visit [] Patient/Family/Request visit [] Outpatient visit [] Follow-up visit [] Physician referral [] Code/Alert [x] Routine visit [] Staff referral [] Actively dying [] Patient sleeping [] Family support [] [] Out of room [] Palliative care [] [] Receiving care in room [] Pre-surgical visit [] Trauma [] Long length of stay [] ICU visit [] Other: Relational/Emotional Strength []x Patient feels connected with others/family/visitors/staff [] Distress [] Loneliness/isolation [] Abandonment Spirituality of Patient [x] Person of Zita [] Attends Scientologist of their Zita [x] Believes in Prayer [] Reads Bible or Pentecostalism materials [] There are Spiritual issues to be addressed 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 Interventions [x] Prayer [] Active listening [] Non-anxious presence [] Spiritual/emotional support [] Crisis/trauma care [] Spiritual counseling [] Bereavement support [] Provided bereavement packet [] Provided Bible/devotional materials [] Provided toy/stuffed animal, coloring book to patient or family member [] Provided Communion [] Anointing/Sinclair [] Salvation [x] Completed spiritual assessment [] Other: Impact on Illness or Injury [] Angry [] Fearful [] Anxious [] Often cries [] Exhaustion [] Unable to work [] Unable to attend sabianist [] Unable to walk/stand [] Unable to read [] Unable to drive [] Unable to eat/drink [] Unable to sleep [] Unable to be with family [] Patient intubated [] Other: Summary Time spent with patient n 1o mi
[2022-07-28 11:52] VITALS: BP 164/83; PULSE 94; RESP 16; TEMP 35.8; O2SAT 95
[2022-07-28 13:54] VITALS: BP 164/83; PULSE 94; RESP 16; TEMP 35.8; O2SAT 95
--- NOTE | 2022-07-29 08:15 | PM.DCS ---
Discharge Providers Date of Admission: 07/27/22 15:43 Date of Discharge: June Attending Provider at Admission: Wilmer Quigley MD Attending Provider at Discharge: Wilmer Quigley MD Primary Care Provider: REBECCA Nielsen Diagnoses at Discharge Discharge Diagnosis (1) Status post left knee replacement: Status: Acute (2) Osteoarthritis of left knee: Status: Resolved (3) Coronary artery disease: Status: Acute Qualifiers: Coronary Disease-Associated Artery/Lesion type: [place] artery [place] vs. transplanted heart: [place] heart Associated angina: with unspecified angina Qualified Code(s): I25.119 - Atherosclerotic heart disease of [place] coronary artery with unspecified angina pectoris Permanent problem details: s/p successful revascularization of mid Left circumflex artery (4) Hypertension: Status: Acute Qualifiers: Hypertension type: essential hypertension Qualified Code(s): I10 - Essential (primary) hypertension Reason for Visit Reason for Visit: M17.0 Brief History: See admission history and physical Hospital Course Hospital Course The patient tolerated surgery well. They remained hemodynamically stable. They was begun on aspirin and sequential compression dressing for DVT prophylaxis. The patient was mobilized with therapy beginning the day of surgery and by the first postoperative day independent with the walker. As the pain was adequately controlled and they were fully mobile they were discharged home. Physical Exam Narrative: On the day of discharge the knee incision was clean. They had no drainage. There is minimal swelling in the thigh and knee and the calf. No distal neurovascular deficits were noted Urinary Catheter Management: Greco: Cath Placed During This Visit: yes, but has since been removed by the nurse Reason for Continuing Indwelling Catheter: Decision to DC Catheter Urinary Catheter Date of Insertion: 07/27/22 Urinary Catheter Time of Insertion: 14:09 Date Urinary Catheter Removed: 07/28/22 Time Urinary Catheter Discontinued: 07:16 Discharge Data Studies Completed and Pending Completed Studies During Hospitalization Category Date Time Status XR knee LT 1-2V 80310 Routine Exams 07/27/22 15:40 Completed Radiology Impressions Knee X-Ray 07/27/22 15:40 IMPRESSION: Recently placed left total knee arthroplasty in expected alignment. Laboratory Results WBC 6.2 10^3/uL (4.0-10.0) 07/20/22 11:30 RBC 4.15 10^6/uL (4.1-5.3) 07/20/22 11:30 Hgb 12.2 g/dL (11.7-16.6) 07/28/22 01:38 Hct 39.4 % (42.0-52.0) L 07/20/22 11:30 MCV 94.9 fl (80-94) H 07/20/22 11:30 MCH 31.8 pg (28.0-34.0) 07/20/22 11:30 MCHC 33.5 g/dL (30.0-36.0) 07/20/22 11:30 RDW 15.7 % (12.1-15.1) H 07/20/22 11:30 Plt Count 274 10^3/cmm (130-400) 07/20/22 11:30 MPV 8.9 fL (7.4-10.4) 07/20/22 11:30 Neut % (Auto) 52.5 % 07/20/22 11:30 Lymph % (Auto) 30.1 % 07/20/22 11:30 [place] % (Auto) 10.5 % 07/20/22 11:30 Eos % (Auto) 5.8 % 07/20/22 11:30 Baso % (Auto) 0.8 % 07/20/22 11:30 Neut # (Auto) 3.26 10^3/uL (1.8-7.7) 07/20/22 11:30 Lymph # (Auto) 1.9 10^3/uL (0.8-4.8) 07/20/22 11:30 [place] # (Auto) 0.7 10^3/uL (0.2-0.9) 07/20/22 11:30 Eos # (Auto) 0.4 10^3/uL (0.0-0.8) 07/20/22 11:30 Baso # (Auto) 0.1 10^3/uL (0.0-0.1) 07/20/22 11:30 Nucleated RBC % (auto) 0 % 07/20/22 11:30 Nucleated RBCs # 0.0 /100WBC 07/20/22 11:30 Sodium 136 mmol/L (136-145) 07/20/22 11:30 Potassium 3.6 mmol/L (3.5-5.1) 07/20/22 11:30 Chloride 100 mmol/L (98-107) 07/20/22 11:30 Carbon Dioxide 28 mmol/L (22-29) 07/20/22 11:30 Anion Gap 11.6 (5-19) 07/20/22 11:30 BUN 12 mg/dL (8-23) 07/20/22 11:30 Creatinine 1.3 mg/dL (0.7-1.2) H 07/20/22 11:30 GFR Calculation 55.2 mL/min (90-130) L 07/20/22 11:30 Glucose 109 mg/dL (65-115) 07/20/22 11:30 Calculated Osmolality 282 mOsm/kg (285-295) L 07/20/22 11:30 Calcium 8.6 mg/dL (8.5-10.5) 07/20/22 11:30 Vitals Last Vital Signs Temp 96.4 F L 07/28/22 13:54 Pulse 94 07/28/22 13:54 Resp 16 07/28/22 13:54 BP 164/83 07/28/22 13:54 Pulse Ox 95 07/28/22 13:54 O2 Del Method 07/28/22 11:52 O2 Flow Rate 6 07/27/22 15:57 Discharge Plan Discharge Patient Disposition: Home Health Service Condition: Stable Prescriptions: New celecoxib 200 mg Capsule 200 mg PO Q12H 14 Days Qty: 28 0RF acetaminophen 500 mg Tablet 1,000 mg PO Q8H 14 Days Qty: 84 0RF oxycodone 5 mg Tablet 5 mg PO Q4H PRN (Reason: Moderate Pain) 7 Days Qty: 40 0RF Continued (DME) Hinged knee brace See Rx Instructions .Route .MEDSUPPLY Qty: 1 0RF Rx Instructions: As directed gabapentin 300 mg capsule 300 mg PO BEDTIME tizanidine 4 mg capsule 4 mg PO BEDTIME cetirizine 10 mg capsule 10 mg PO BEDTIME nitroglycerin 0.4 mg tablet, sublingual 0.4 mg SUBLINGUAL Q5M PRN (Reason: chest pain) Qty: 25 3RF Rx Instructions: do not exceed 3 doses per episode cholecalciferol (vitamin D3) 125 mcg (5,000 unit) capsule 125 mcg PO DAILY ibuprofen 800 mg tablet 1,600 mg PO BEDTIME metoprolol tartrate 25 mg tablet 25 mg PO .HS pantoprazole 40 mg tablet,delayed release (DR/EC) See Rx Instructions .ROUTE .COMPLEX Qty: 90 2RF Dose Instruction: TAKE 1 TABLET BY MOUTH EVERY DAY Rx Instructions: TAKE 1 TABLET BY MOUTH EVERY DAY clopidogrel 75 mg tablet 75 mg PO BEDTIME Qty: 90 2RF potassium chloride 20 mEq tablet extended release 20 meq PO BEDTIME Qty: 180 1RF cilostazol 50 mg tablet 100 mg PO BEDTIME Qty: 180 1RF amlodipine 5 mg tablet 5 mg PO BEDTIME Qty: 90 3RF atorvastatin 40 mg tablet 40 mg PO BEDTIME Qty: 90 3RF aspirin 81 mg tablet,delayed release (DR/EC) 81 mg PO BEDTIME furosemide 40 mg tablet 40 mg PO BEDTIME methotrexate sodium 2.5 mg tablet 7.5 mg PO Q7D Rx Instructions: on sundays Held diclofenac sodium 75 mg tablet,delayed release (DR/EC) 150 mg PO BEDTIME Hold Instructions: Resume on 08/11/22. Do not take diclofenac with Celebrex Discharge Orders: Discharge Order (Routine); Ordered 07/28/22 Ordered By: Wilmer Quigley Other Ambulatory Orders: DME: [facility] (Order) Location: None Selected Ordered By: Wilmer Quigley Referrals: Familia Mon FNP [Physician Manager Of Finance] - 09/04/22 9:00 am Marilia Whitehead [Referring] - 07/30/22 1:00 pm (PCP follow up) Discharge Diet: Advance as tolerated Discharge Activity: Limit activity as instructed Patient Instructions: Oxycodone, Rapid Release (By mouth) (ETH-Oxydose, Oxy IR,..., Celecoxib (By mouth), Knee Replacement (DC), Opioid Safety Activity Restrictions/Additional Instructions: Take Tylenol and Celebrex for next 14 days Take Oxycodone for breakthrough pain Leae dressing in place OK to shower Exercises per Physical Therapy Call hospital ruling machine set up operator and ask for Dr. Quigley if any problems after clinic hours Discharge Attestations Time Spent in Discharge Care*: other Quality Metrics Clinical Quality Measures [ No reported AMI, CVA or VTE this stay] Coding Level of Care Code Acute Chg FW DC note Diagnoses Status post left knee replacement Z96.652 Osteoarthritis of left knee M17.12 Coronary artery disease I25.119 Coronary Disease-Associated Artery/Lesion type: [place] artery [place] vs. transplanted heart: [place] heart Associated angina: with unspecified angina Hypertension I10 Hypertension type: essential hypertension
== END 2022-07-28 13:56 | disposition home health service (06) ==
LOC: MEDSURG 15:43
PROVIDERS: Anesthesiology; Admitting Provider Orthopaedic Surgery; PCP Nurse Practitioner Family; Visit Provider Orthopaedic Surgery
PROC: 8E0Y0CZ Robotic Assisted Procedure of Lower Extremity, Open Approach (ICD-10-PCS; CPT 27447; principal; 2022-07-27 13:10)
DX: M17.12 Unilateral primary osteoarthritis, left knee (principal); I10 Essential (primary) hypertension; I25.119 Atherosclerotic heart disease of native coronary artery with unspecified angina pectoris; E78.5 Hyperlipidemia, unspecified; G47.30 Sleep apnea, unspecified
CPT/HCPCS: 27447; 36415; 51702; 73560; 80048; 85018; 85025; 96374; 97110; 97116; 97161; 97165; C1776; G0378; J0171; J0690; J1170; J1580; J1885; J2250; J2270; J2704; J2795; J3010; J7030

== ENCOUNTER → 2022-08-11 13:24 | Outpatient (BNVA) | payer MEDICARE, SELFPAY | PROVIDERS: PCP Nurse Practitioner Family; Visit Provider Orthopaedic Surgery | DX: Z96.652 Presence of left artificial knee joint (principal) | CPT/HCPCS: 99024 ==

== ENCOUNTER → 2022-09-09 12:58 | Outpatient (BNVA) | payer MEDICARE, SELFPAY | PROVIDERS: PCP Nurse Practitioner Family; Visit Provider Orthopaedic Surgery | DX: Z96.652 Presence of left artificial knee joint (principal); Z47.89 Encounter for other orthopedic aftercare | CPT/HCPCS: 73560; 73565; 99024 ==

== ENCOUNTER → 2022-10-07 13:01 | Outpatient (BNVA) | payer MEDICARE, SELFPAY | PROVIDERS: PCP Nurse Practitioner Family; Visit Provider Orthopaedic Surgery | DX: Z96.652 Presence of left artificial knee joint (principal) | CPT/HCPCS: 99024 ==

== ENCOUNTER → 2023-01-18 13:39 | Outpatient (BNVA) | payer MEDICARE, SELFPAY | PROVIDERS: PCP Nurse Practitioner Family; Visit Provider Internal Medicine Cardiovascular Disease | DX: I25.119 Atherosclerotic heart disease of native coronary artery with unspecified angina pectoris (principal); I73.9 Peripheral vascular disease, unspecified; R06.02 Shortness of breath; I10 Essential (primary) hypertension; E78.2 Mixed hyperlipidemia; G47.30 Sleep apnea, unspecified; Z87.891 Personal history of nicotine dependence | CPT/HCPCS: 99215 ==

== ENCOUNTER → 2023-01-20 15:37 | Outpatient (BNVA) | payer MEDICARE, SELFPAY | PROVIDERS: PCP Nurse Practitioner Family; Visit Provider Specialist | DX: Z96.652 Presence of left artificial knee joint (principal); M25.562 Pain in left knee; G89.29 Other chronic pain | CPT/HCPCS: 73560; 73565; 99204 ==

== ENCOUNTER 2023-01-29 07:56 | Outpatient (CLI) | payer MEDICARE, SELFPAY ==
--- NOTE | 2023-01-29 08:00 | CT_ITS ---
WS: [id number] CT ANGIOGRAPHY OF THE ABDOMINAL AORTA WITH RUNOFF TO THE ANKLES HISTORY: PAD/Leg pain TECHNIQUE: Arterial injection is performed during imaging to evaluate the aorta and runoff vessels to the ankles. MIP and volume rendering imaging has also been performed. All images are reviewed. All C T scans at [facility] use at least one of these dose optimization techniques: automated exposu re control; mA and/or kV adjustment per patient size (includes targeted exams where dose is matched t o clinical indication); or iterative reconstruction. Contrast: Omnipaque 350; 100 mL IV. DLP: 1510.92 mGy.cm COMPARISON: 04/02/2022 Abdominal aorta: Calcified plaque and intimal thickening throughout the aorta. Aorta is tortuous with ectasia and dilatation. Mild progression in dilatation with a maximum diameter now of 4.0 cm. Bifurc ation is intact. There is intimal thickening and plaque in the SMA and celiac axis. RIGHT lower extremity arterial system: Continued atherosclerotic plaque throughout the RIGHT lower ex tremity. Mild stenosis origin RIGHT common iliac artery. High-grade stenosis identified at the origin of the RIGHT distal common iliac into the external iliac artery. Femoral artery stenosis approaching 50%. High-grade stenosis proximal RIGHT SFA. Deep profundas intact. There is extensive calcification with luminal narrowing throughout the SFA. SFA is occluded in the proximal to mid thigh. Intermitten t visualization with attempt at reconstitution. Vessel reconstitutes near Hemal's canal. Popliteal a rtery is mildly diseased. Small caliber but three-vessel runoff noted to the ankle. LEFT lower extremity arterial system: Patent LEFT common iliac artery was plaque. No high-grade sten osis. Increasing plaque near the internal/external iliac artery. Focal ulceration versus very short d issection of the common femoral artery. Similar to the prior exam. Heavily diseased SFA. Moderate to severe disease of the deep profunda. Small caliber SFA with areas of high-grade stenosis in the dista l SFA and Hemal's canal. Short segment of the vessel near Hemal's canal is poorly visualized. Popli teal artery is patent. Portions of the popliteal artery obscured by the knee prosthesis which is been placed since the prior exam. Atherosclerotic plaque below the knee. Three-vessel runoff is noted to the ankle. Lung bases are clear. Normal size heart. Small hiatal hernia. Prior cholecystectomy. Early arterial i maging images no abnormality in the liver or spleen. Mild pancreatic atrophy. No adrenal mass. Mild b ilateral cortical thinning of each kidney with no obstruction. Ventral abdominal wall fat-containing hernia. Mild distal colonic diverticulosis. Normal appendix. No adenopathy or ascites. Mild prostate gland encroachment into the bladder. LEFT knee arthroplasty. CT/CT angio abd aorta runof [id number] IMPRESSION: 1. Mild increase in size of the infrarenal aortic aneurysm now with a maximum diameter of 4.0 cm. 2. Progression of atherosclerotic disease and multifocal stenoses since 022. 3. Severe stenosis distal RIGHT common iliac artery extending into the proxima l external iliac artery. Similar to the prior study. 4. Occluded RIGHT SFA with attempt at reconstitution. There is extensive multi focal areas of stenoses and atherosclerotic plaque throughout the SFA. 5. Heavily diseased LEFT SFA. SFA is small caliber with a high-grade stenosis in the distal SFA. There is a short segment of the SFA and the popliteal artery which are obscured by the knee prosthesis artifact. Popliteal artery contains normal flow. 6. Small caliber three-vessel runoff to the ankles similar to the prior study.
[2023-01-29 08:33] LABS: Blood Urea Nitrogen 12 mg/dL (8-23); Glomerular Filtration Rate 46.8 mL/min (90-130)
[2023-01-29] MEDS: iohexol 350 mg/mL 500 mL Btl (per mL) IV (09:18)
== END 2023-01-29 07:57 | disposition home or self-care (01) ==
PROVIDERS: PCP Nurse Practitioner Family; Visit Provider Internal Medicine Cardiovascular Disease
DX: I73.9 Peripheral vascular disease, unspecified (principal); M79.604 Pain in right leg; M79.605 Pain in left leg; I71.43 Infrarenal abdominal aortic aneurysm, without rupture; I70.8 Atherosclerosis of other arteries; I70.203 Unspecified atherosclerosis of native arteries of extremities, bilateral legs; I70.92 Chronic total occlusion of artery of the extremities
CPT/HCPCS: 75635; 82565; 84520; Q9967

== ENCOUNTER 2023-02-01 07:25 | Outpatient (CLI) | payer MEDICARE, SELFPAY ==
--- NOTE | 2023-02-01 | ECG_ITS ---
[facility] Test Date: 2023-02-01 Pat Name: Van Dwyer Department: Room: Gender: Male Rn Clinical Quality: Charla Avila : 1955 Requested By: Mena Noble Order Number: [id number] S[place] MD: Mena Noble M.D. Interpretive Statements NAME OF STUDY: LEXISCAN SESTAMIBI STRESS TEST INDICATION: Chest Pain PROCEDURE: At the baseline, the blood pressure was 133/77 mmHg, oxygen saturation 94% with a heart rate of 67 bpm. The electrocardiogram showed sinus rhythm, normal axis nonspecific ST depression. The Lexiscan was infused over a period of 20 seconds. A total of 0.4 milligrams of Lexiscan was infused. The stress phase was continued for a total of 5 minutes. Heart rate at the end of the stress phase was 27 bpm, oxygen saturation 96% with a blood pressure of 138/68 mm of Hg. The EKG at the peak infusion revealed no significant ST-T wave changes. Sestamibi was injected 20 seconds after the Lexiscan infusion. Blood pressure at the end of the recovery phase was 131/72 mmHg with a heart rate of 75 beats per minute and oxygen saturation 94%. CONCLUSION: 1. No significant EKG changes with the LexiScan infusion. 2. No LexiScan induced chest pain or cardiac arrhythmia. 3. Normal blood pressure and heart rate response. 4. Sestamibi/sestamibi perfusion scan pending; see separate report. Electronically Signed On 02-05-2023 10:39:50 CDT by Mena Noble M.D. [id number]
[2023-02-01 08:07] VITALS: BMI 38.8
--- NOTE | 2023-02-01 08:35 | NMCV_ITS ---
NM shari perf SPECT r/s* [id number] Van Dwyer Age: 67 Gender: M : 1955 Exam Date: 02/01/2023 09:02 Ordering Phys: Mena Noble MD ([email or web address]) Technologist: BRIE Joseph Exam Location: [facility] Indications: SHORTNESS OF BREATH, CHEST PAIN, ATHEROSCLEROTIC HEART DISEASE STRESS TEST Please see separate stress test report in [facility] for full findings IMAGE PROTOCOL Rest/Stress 1 Lexiscan Day Radiopharmaceutical Dose (mCi) Administration Site Administered by Rest: Tc-99m 10.9 IV BRIE Rivero Sestamibi Stress:Tc-99m 32.8 IV BRIE Rivero Sestamibi Rest: 01-Feb-2023 60 Discovery 630 Stress: 01-Feb-2023 30 Discovery 630 0.4mg Lexiscan. Supine position only as patient was unable to lay prone. SPECT RESULTS Technical Quality: Excellent Raw Data Analysis: Normal Image Corrections: No attenuation or motion correction applied Summed Stress Score: 0 Summed Rest Score: 0 Summed Difference Score: 0 PERFUSION FINDINGS SPECT images demonstrate homogeneous tracer distribution throughout the myocardium. FUNCTIONAL RESULTS (calculated via Gated SPECT) Stress Image LV EF (%): 71 Stress EDV (mL):114 TID: 1.11 Stress ESV (mL):33 FUNCTIONAL FINDINGS: The left ventricle is normal in size. Transient Ischemia Dilatation of 1.1. The left ventricular ejection fraction is normal with a value of 71%. There is normal left ventricular wall thickening. Normal end-diastolic and end-systolic volumes. IMPRESSIONS 1. Myocardial perfusion imaging is normal. 2. Overall left ventricular systolic function is normal without regional wall motion abnormalities. LVEF=71%. 3. EKG portion of the study will be reported separately. 4. Scan indicates low risk for cardiac events. Mena Noble MD (Electronically Signed) Final Date: 03 February 2023 11:34 S
[2023-02-01] MEDS: regadenoson 0.4 Mg/5 ml Syringe IVP (10:09)
[2023-02-01 10:45] VITALS: BP 131/72; PULSE 75
== END 2023-02-01 07:26 | disposition home or self-care (01) ==
LOC: CDL 07:25
PROVIDERS: PCP Nurse Practitioner Family; Visit Provider Internal Medicine Cardiovascular Disease
DX: R07.9 Chest pain, unspecified (principal); R06.02 Shortness of breath; I25.10 Atherosclerotic heart disease of native coronary artery without angina pectoris
CPT/HCPCS: 36415; 78452; 93017; 96374; A9500; J2785

== ENCOUNTER 2023-03-02 05:58 | Outpatient (CLI) | payer MEDICARE, SELFPAY ==
[2023-03-02] VITALS (8 sets, daily range): BP systolic 112–159; BP diastolic 63–98; PULSE 65–83; RESP 18–20; TEMP 36.4; O2SAT 93–97; BMI 41.1
--- NOTE | 2023-03-02 06:00 | XACV_ITS ---
Ht: 170 cm Wt: 119 kg BSA: 2.43 m2 Any Known Allergies: No known allergies Gender: Male : 1955 Exam Type: Invasive Peripheral Vascular Procedure(s): Procedure Description: Peripheral Cath Diagnostic Procedure Procedure Description: Lower extremities' angiography Exam Priority: Routine CROKE, Yasmeen; Abdominal Diagnostic Findings Patient has a known 4 cm AAA which was not imaged on this occasion. Lower Extremity Diagnostic Findings On the right, the common iliac artery is relatively small and appears to have a mild to moderate stenosis in its distal portion. The external iliac is aneurysmal. It is dilated. The internal iliac is patent with moderate diffuse disease. The common femoral artery contains mild plaquing but is patent. The profunda femoris artery is patent and appears to be largely normal. There is some collateral flow emanating from the distal profunda femoris. Superficial femoral artery is patent proximally down to the distal portion where it is occluded. Prior to the occlusion there is a 70% stenosis. There is collateral flow from the distal superficial femoral artery and the profunda femoris where it reconstitutes the distal SFA and popliteal. The popliteal appears to be unremarkable. The occlusion is a short segment occlusion in the distal SFA. The anterior tibial is patent proximally but appears to narrow down to a very small severely diffusely diseased vessel. The peroneal likewise is patent proximally but may be occluded distally. The tibial peroneal trunk is patent. The posterior tibial contains severe diffuse disease in the ostial and proximal portion but appears to be patent to the ankle.. A crossover sheath was placed and a wire placed on the superficial femoral artery. Using a seeker catheter multiple attempts were made with a Glidewire to cross the distal SFA occlusion. It was unsuccessful. On the left, there is mild diffuse plaquing. The common iliac, external iliac, internal iliac are all patent. The profunda femoris artery is patent. The superficial femoral artery is mildly diffusely diseased but appears to be patent all the way to the popliteal. There is a prosthetic device in the left knee which obscures visualization of the distal SFA and popliteal. The anterior tibial is patent. The tibioperoneal trunk is patent. The peroneal artery appears to be patent to at least the mid tibia toward the ankle. The posterior tibial appears to be patent all the way to the ankle.. Lower Extremity Interventional Findings Unsuccessful attempt at crossing the distal SFA. Conclusions Occluded distal super [place] femoral artery, short segment occlusion with inability to cross the lesion due to calcified plaque. Recommendations Continue current medical management and risk factor modification. Follow up with PCP as directed. Medical treatment for now however consideration of referral to vascular surgery if remains symptomatic. Access Site Site: Left Femoral artery Sheath Size: 6 Fr Hemost... Method: Suture Hemost... Success: Successful Procedure Details Findings Procedure Consent Obtained. Admit Source: Out Patient. Pre-Procedure Time Out. Identified patient by full name and date of as verbalized by the patient/guarantor. Does the consent match the physician's order: Yes. Accurate & Complete Informed Consent: Yes. Inpatient/Outpatient History & Physical on Chart: Yes. If H&P is completed, is and addenduem needed: Yes; If yes, is the addendum complete: Yes. Visualize and Verify Site with Patient/Guarantor: N/A. Relevant Radiology Images available: Yes. The risks, benefits, and alternatives of sedation and/or procedure were discussed by physician. The patient agrees to continue. Procedure started. Correct patient, site and procedure confirmed by cath team. Current diagnosis: PAD. PERRLA. 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 Lungs clear x 5 lobes. IV Site on Arrival: 20 gauge in the left anticubital. IV Fluids: 0.9% NaCl at 75ml/hr. 0 mL infused prior to tree tapping laborer. Pre Procedural Pulses: bilateral posterior tibial was 1+. Pre Procedural Pulses: bilateral dorsalis pedis was 1+. Pre Procedural Pulses: right radial was 3+. Oxygen started at 2liters/min via nasal canula. bilateral groins was prepped with chloroprep then draped in the usual sterile fashion. Physician notified. Baseline sample Acquired. HR: 68 BPM. Physician arrived. Physician scrubbed in. Immediate Pre-Procedure Time Out. Correct Patient: Yes; Correct Procedure: Yes; Correct Site: Yes; Correct Patient Position: Yes; Correct Supplies: Yes; Dried Flammable Prep: Yes; Blood Products Available: No;. Lidocaine 1% infiltrated to the left groin. Arterial access obtained. A 5Fr RIM catheter in over glidewire. Glidewire out. Right common iliac selected and arteriogram with runoff performed @ 10 mL/sec for a total of 30 mL. Glidewire in through RIM catheter. Glidewire seated in right SFA. RIM Catheter out over glidewire. Short 6fr sheath exchanged for 6fr 45cm flexor sheath over the glidewire. Seeker catheter inserted over the glidewire. Side port of sheath attached to Normal Saline flush at KVO to maintain patency. Seeker and glidewire out. 6fr flexor sheath exchanged for 6fr short sheath over the standard wire. Sheath injected in Left common femoral artery and runoff performed. Sheath injected in Left common femoral artery and runoff performed. A Suture was successful obtaining hemostatsis at the Left Femoral artery insertion site. Sheath(s) sutured into position with 2-0 silk and sterile 4x4's and Op-site applied over the site. No oozing or signs and symptoms of hematoma noted. Arterial sheath flushed and connected to tranducer and pressure bag with heparinized saline. Post Procedure: Pulses reassessed and unchanged. PERRLA. 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 No VTE prophylaxis required. Medication's Wasted: Heparin = Heparin 3000 unit. Total IV fluids: 50 mL. Post-op diagnosis: PAD. Complications: None. Estimated blood loss: 5mL-10mL. Responsiveness - Normal response to verbal stimuli; alert and oriented, PERRLA. Airway - Unaffected, no intervention required; spontaneous ventilation. Circulation: W/N/L, pulses unchanged. Nausea/Vomiting: No. Procedure completed. Patient transferred by bed to CPRU. Vital chart was stopped. Procedure Medications Start: 7:08 AM Stop: 7:08 AM Medication: Versed Amount: 1 mg Route: I.V. Start: 7:08 AM Stop: 7:08 AM Medication: Fentanyl Amount: 50 mcg Route: I.V. Start: 7:12 AM Stop: 7:12 AM Medication: Versed Amount: 1 mg Route: I.V. Start: 7:12 AM Stop: 7:12 AM Medication: Fentanyl Amount: 50 mcg Route: I.V. Start: 7:16 AM Stop: 7:16 AM Medication: Versed Amount: 2 mg Route: I.V. Start: 7:25 AM Stop: 7:25 AM Medication: Fentanyl Amount: 50 mcg Route: I.V. Start: 7:30 AM Stop: 7:30 AM Medication: Versed Amount: 2 mg Route: I.V. Start: 7:31 AM Stop: 7:31 AM Medication: Heparin Amount: 5000 units Route: I.V. Start: 7:45 AM Stop: 7:45 AM Medication: Fentanyl Amount: 50 mcg Route: I.V. I, the attending physician, have reviewed and verified all procedure medications. Yes, all medications given per verbal order History/Risk Factors Hypertension: Yes Dyslipidemia: Yes Peripheral Arterial Disease (PAD): Yes Obesity: Yes Renal Disease: No Tobacco Use: Former Prior Interventions PCI: No CABG: No Valve Surgery: No Report Signatures Finalized by Dr. Osmany Arana MD on 03/02/2023 08:09 AM
[2023-03-02] MEDS: diphenhydrAMINE 50 mg Capsule PO (06:30)
[2023-03-02 06:34] LABS: Basophils # 0.1 10^3/uL (0.0-0.1); Eosinophils # 0.3 10^3/uL (0.0-0.8); Eosinophils % 4.9 %; Lymphocytes # 1.8 10^3/uL (0.8-4.8); Lymphocytes % 26.6 %; Mean Corpuscular HGB Conc 33.7 g/dL (30-55); Mean Corpuscular Hemoglobin 31.7 pg (27-33); Mean Corpuscular Volume 94.3 fl (82-101); Mean Platelet Volume 8.9 fL (7.4-10.4); Monocytes # 0.8 10^3/uL (0.2-0.9); Monocytes % 11.2 %; Neutrophils # 3.77 10^3/uL (1.8-7.7); Neutrophils % 56.2 %; Nucleated Red Blood Cells % 0 %; Platelet Count 258 10^3/cmm (157-399); Red Blood Count 4.35 10^6/uL (3.85-5.65); Red Cell Distribution Width 17.2 % (12.1-15.1); White Blood Count 6.72 10^3/uL (3.29-11.43)
[2023-03-02] MEDS: aspirin 81 mg Chew Tablet PO (06:40)
[2023-03-02 06:53] LABS: Blood Urea Nitrogen 14 mg/dL (8-23); Calcium 9.7 mg/dL (8.5-10.5); Carbon Dioxide 29 mmol/L (22-29); Chloride 102 mmol/L (98-107); Glomerular Filtration Rate 50.7 mL/min (90-130); Glucose 109 mg/dL (65-115); Osmolality Calculated 289 mOsm/kg (285-295); Sodium 139 mmol/L (136-145)
--- NOTE | 2023-03-02 06:57 | P.HP_ITS ---
Providers/Chief Complaint Admitting Physician: kapil Primary Care Provider: REBECCA Nielsen Chief Complaint: I73.9 History of Present Illness Van Dwyer is a 67 year old male who is being seen today for elective lower extremity angiography and possible intervention. He has known peripheral arterial disease and has had a remote intervention to his left leg. He was seen by Dr. Noble last fall and in April I was asked to perform peripheral angiography. At that time I had done a balloon angioplasty on his distal right superficial femoral artery and as I was preparing to perform atherectomy the patient with an acute inferior wall myocardial infarction came into the emergency room. The procedure had to be stopped. He has not been seen in follow-up until very recently. In the interim he has had a left total knee replacement which has not gone well. He is still having claudication of both legs. He was seen on 18 January with leg pain and shortness of breath. Dr. Noble ordered a sestamibi examination which was unremarkable. She also ordered a an abdominal aortogram with runoff. There is a 4 cm AAA which is increased in size since last fall. This did make the attempted intervention more difficult along with tortuosity of the iliac vessels. His right superficial femoral artery appears to be occluded now. There is also severe stenosis of the distal right common iliac artery. There is severe stenosis of the distal left superficial femoral artery. There is still three-vessel runoff below both knees. He is back today for another attempted intervention. He has coronary disease. He has had a stent to his circumflex. He also has obesity, hypertension, dyslipidemia, sleep apnea, COPD, prior tobacco abuse and the above-mentioned AAA. Review of Systems Narrative: Review of systems is negative other than what is noted above. Medications/Allergies Home Medications Medication Instructions Recorded Confirmed Last Taken Type cetirizine 10 mg capsule 10 mg PO BEDTIME 01/11/20 02/26/23 07/26/22 History gabapentin 300 mg capsule 300 mg PO BEDTIME 01/11/20 02/26/23 07/26/22 History tizanidine 4 mg capsule 4 mg PO BEDTIME 01/11/20 02/26/23 07/26/22 History Hinged knee brace #1 ea 05/20/20 02/26/23 Unknown Rx ibuprofen 800 mg tablet 1,600 mg PO BEDTIME 09/12/20 02/26/23 07/26/22 History diclofenac sodium 75 mg 150 mg PO BEDTIME 12/05/20 02/26/23 07/26/22 History tablet,delayed release methotrexate sodium 2.5 mg tablet 7.5 mg PO Q7D 12/05/20 02/26/23 07/26/22 History cholecalciferol (vitamin D3) 125 125 mcg PO DAILY 03/07/21 02/26/23 07/26/22 History mcg (5,000 unit) capsule raised toilet seat #1 ea 07/29/22 02/26/23 Unknown Rx amlodipine 5 mg tablet 5 mg PO BEDTIME #90 tabs 01/18/23 02/26/23 Unknown Rx aspirin 81 mg tablet,delayed 81 mg PO BEDTIME #90 tabs 01/18/23 02/26/23 Unknown Rx release atorvastatin 40 mg tablet 40 mg PO BEDTIME #90 tabs 01/18/23 02/26/23 Unknown Rx cilostazol 50 mg tablet 100 mg PO BEDTIME #180 tabs 01/18/23 02/26/23 Unknown Rx clopidogrel 75 mg tablet 75 mg PO BEDTIME #90 tabs 01/18/23 02/26/23 Unknown Rx furosemide 40 mg tablet 40 mg PO BEDTIME #90 tabs 01/18/23 02/26/23 Unknown Rx metoprolol tartrate 25 mg tablet 25 mg PO .HS #90 tabs 01/18/23 02/26/23 Unknown Rx nitroglycerin 0.4 mg sublingual 0.4 mg sublingual Q5M PRN chest 01/18/23 02/26/23 Unknown Rx tablet pain #25 tabs pantoprazole 40 mg tablet,delayed See Rx Instructions .Route 02/15/23 02/26/23 Unknown Rx release .COMPLEX #90 tabs potassium chloride 20 mEq 20 meq PO BEDTIME #90 tabs 02/15/23 02/26/23 Unknown Rx tablet,extended release Allergies Allergy/AdvReac Type Severity Reaction Status Date / Time No Known Allergies Allergy Verified 10/07/22 13:14 PFSH Acute PFSH: Medical History (Updated 03/02/23 @ 07:02 by Osmany Arana MD) AAA (abdominal aortic aneurysm) AAA (abdominal aortic aneurysm) without rupture Claudication COPD (chronic obstructive pulmonary disease) Family history of ischemic heart disease and other diseases of the circulatory system Hyperlipidemia Hypertension Sleep apnea Surgical History H/O left knee surgery History of cholecystectomy Hx of tonsillectomy Family History Father CAD (coronary artery disease) Hypertension Mother Hypertension Other FH: CABG (coronary artery bypass surgery) Myocardial infarction Pacemaker Social History Smoking and tobacco status: former smoker Alcohol intake: former Substance/Drug Use: never Physical Exam Narrative: GENERAL: In general he looks and feels well HEENT: Exam within normal limits. NECK: Supple without jugular vein distention. The carotid upstroke is normal without bruits. BACK: Exam normal. LUNGS: Clear. HEART: Regular rate and rhythm. ABDOMEN: Benign without organomegaly or tenderness. EXTREMITIES: No edema. Diminished pulses both lower extremities. No open sores. NEUROLOGIC: Exam normal. SKIN: Unremarkable. Data 03/02/23 06:10 03/02/23 06:10 A&P Assessment and plan (1) Status post left knee replacement: (2) Claudication: (3) AAA (abdominal aortic aneurysm) without rupture: (4) Hyperlipidemia: Qualifiers: Hyperlipidemia type: mixed hyperlipidemia Qualified Code(s): E78.2 - Mixed hyperlipidemia (5) Coronary artery disease: Qualifiers: Coronary Disease-Associated Artery/Lesion type: [place] artery [place] vs. transplanted heart: [place] heart Associated angina: with unspecified angina Qualified Code(s): I25.119 - Atherosclerotic heart disease of [place] coronary artery with unspecified angina pectoris (6) Sleep apnea: Qualifiers: Sleep apnea type: unspecified type Qualified Code(s): G47.30 - Sleep apnea, unspecified (7) Hypertension: Qualifiers: Hypertension type: essential hypertension Qualified Code(s): I10 - Essential (primary) hypertension (8) PAD (peripheral artery disease): (9) COPD (chronic obstructive pulmonary disease): Plan Elective lower extremity angiography with attempted intervention. This may be m ore difficult now that there is an occlusion distally on the right and the AAA has increased in size. I had a conversation with the patient and his this morning. I discussed the consent form with him and had him signed in my presence. Attestations Medical Necessity Statement*: Admission for elective peripheral angiography. and Moderate Time for a total of 35 minutes, includes reviewing past or interval history, examining/interviewing patient, counseling patient/fam tim/other support, updating patient/family/other support, discussing plan of care with staff and documenting encounter Diagnoses Status post left knee replacement Z96.652 Claudication I73.9 AAA (abdominal aortic aneurysm) without rupture I71.4 Hyperlipidemia E78.2 Hyperlipidemia type: mixed hyperlipidemia Coronary artery disease I25.119 Coronary Disease-Associated Artery/Lesion type: [place] artery [place] vs. transplanted heart: [place] heart Associated angina: with unspecified angina Sleep apnea G47.30 Sleep apnea type: unspecified type Hypertension I10 Hypertension type: essential hypertension PAD (peripheral artery disease) I73.9 COPD (chronic obstructive pulmonary disease) J44.9
--- NOTE | 2023-03-02 08:32 | PC.NURSE ---
0800: Patient returned to CPRU from laboratory associate post procedure. Shealth in place to patients left groin connected to pressure bag. Dsg clean, dry et intact. No drainage or hematoma noted. Vitals stable, no c/o pain or discomfort. 0830:Transfer orders received. Shealth in place to patients left groin connected to pressure bag. Dsg clean, dry et intact. No drainage or hematoma noted. Vitals stable, no c/o pain or discomfort. Report given to CHARBEL Williamson. Patient transferred from CPRU to CSU via hospital bed. All belongings sent with patient.
[2023-03-02 10:00] LABS: Partial Thromboplastin Time 43.1 SECONDS (23.9-36.7)
[2023-03-02] MEDS: cholecalciferol (vitamin D3) 5,000 unit Tablet 5000 UNIT PO (10:19)
[2023-03-02] MEDS: sodium chloride 0.9% 1,000 ML 50 ML IV (10:19)
--- NOTE | 2023-03-02 16:21 | PC.NURSE ---
Patient comes from laboratory technician with a left extremity sheath. No hematoma was noted and vitals were stable. He is in SR. Patient has had not chest pain. Sheath is pulled at 1200. Hemastasis is obtained at 1201. Manual pressure is held x 20 minutes. Vital are stable throughout. Patient complains of no pain. Dressing is applied. Patient tolerated well.
--- NOTE | 2023-03-02 17:01 | PM.DCS ---
Discharge Providers Date of Admission: 03/02/2023 Date of Discharge: March 02, 2023 Attending Provider at Admission: Yasmeen Attending Provider at Discharge: Osmany Arana MD Primary Care Provider: REBECCA Nielsen Diagnoses at Discharge Discharge Diagnosis (1) Status post left knee replacement: Status: Acute (2) Claudication: Status: Acute (3) AAA (abdominal aortic aneurysm) without rupture: Status: Acute (4) Hyperlipidemia: Status: Acute Qualifiers: Hyperlipidemia type: mixed hyperlipidemia Qualified Code(s): E78.2 - Mixed hyperlipidemia (5) Coronary artery disease: Status: Acute Qualifiers: Coronary Disease-Associated Artery/Lesion type: [place] artery [place] vs. transplanted heart: t[place] heart Associated angina: with unspecified angina Qualified Code(s): I25.119 - Atherosclerotic heart disease of [place] coronary artery with unspecified angina pectoris Permanent problem details: s/p successful revascularization of mid Left circumflex artery (6) Sleep apnea: Status: Acute Qualifiers: Sleep apnea type: unspecified type Qualified Code(s): G47.30 - Sleep apnea, unspecified (7) Hypertension: Status: Acute Qualifiers: Hypertension type: essential hypertension Qualified Code(s): I10 - Essential (primary) hypertension (8) PAD (peripheral artery disease): Status: Acute (9) COPD (chronic obstructive pulmonary disease): Status: Acute Reason for Visit Reason for Visit: I73.9 Brief History: Patient has known peripheral arterial disease. I made an attempt to intervene on his right superficial femoral artery last fall. I was able to get the occluded artery open. The occlusion was then entire length of the artery from the ostium down to the abductor canal. Once I got the artery open there was one 6 short segment that was resistant to balloon angioplasty. As I was preparing to start an atherectomy, another patient with an acute heart attack came in and I had to take this patient off the table. He has been lost to follow-up until the other day when he saw one of the other physicians. A lower abdominal angiogram with runoff was done which revealed the right superficial femoral artery is occluded. He was sent back in for another angiogram and attempted intervention today. 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 The profunda and the SFA are open on the right. The SFA is occluded distally at the adductor canal just at the point of the previous difficult angioplasty. It is a short segment occlusion. The distal vessel reconstitutes with collateral flow in the popliteal appears to be fairly normal. There is two-vessel runoff below that knee. On the right there is mild to moderate diffuse disease but no significant lesions requiring intervention. Procedure was done from the left common femoral artery. No vascular complications. He will be seen again and if he is symptomatic 1 could make an effort to enter the left popliteal artery and intervene from below. The other option would be a femoral-popliteal bypass. A better option the nose to may be just to treat him medically. If he is relatively asymptomatic or only mildly symptomatic then a walking program would be best to start along with medical therapy. I discussed all of this with him several hours after the procedure when his head was clear. There were no vascular complications at the entry site. Physical Exam Narrative: GENERAL: Generally looks and feels well. HEENT: Exam within normal limits. NECK: Supple without jugular vein distention. The carotid upstroke is normal without bruits. BACK: Exam normal. LUNGS: Clear. HEART: Regular rate and rhythm. ABDOMEN: Benign without organomegaly or tenderness. EXTREMITIES: No edema. NEUROLOGIC: Exam normal. SKIN: Unremarkable. 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 service Routine Exams 03/02/23 06:00 Completed Laboratory Results WBC 6.72 10^3/uL (3.29-11.43) 03/02/23 06:10 RBC 4.35 10^6/uL (3.85-5.65) 03/02/23 06:10 Hgb 13.80 g/dL (11.27-16.99) 03/02/23 06:10 Hct 41.0 % (37-53) 03/02/23 06:10 MCV 94.3 fl (82-101) 03/02/23 06:10 MCH 31.7 pg (27-33) 03/02/23 06:10 MCHC 33.7 g/dL (30-55) 03/02/23 06:10 RDW 17.2 % (12.1-15.1) H 03/02/23 06:10 Plt Count 258 10^3/cmm (157-399) 03/02/23 06:10 MPV 8.9 fL (7.4-10.4) 03/02/23 06:10 Neut % (Auto) 56.2 % 03/02/23 06:10 Lymph % (Auto) 26.6 % 03/02/23 06:10 [place] % (Auto) 11.2 % 03/02/23 06:10 Eos % (Auto) 4.9 % 03/02/23 06:10 Baso % (Auto) 1.0 % 03/02/23 06:10 Neut # (Auto) 3.77 10^3/uL (1.8-7.7) 03/02/23 06:10 Lymph # (Auto) 1.8 10^3/uL (0.8-4.8) 03/02/23 06:10 [place] # (Auto) 0.8 10^3/uL (0.2-0.9) 03/02/23 06:10 Eos # (Auto) 0.3 10^3/uL (0.0-0.8) 03/02/23 06:10 Baso # (Auto) 0.1 10^3/uL (0.0-0.1) 03/02/23 06:10 Nucleated RBC % (auto) 0 % 03/02/23 06:10 Nucleated RBCs # 0.0 /100WBC 03/02/23 06:10 APTT 43.1 SECONDS (23.9-36.7) H 03/02/23 09:38 Sodium 139 mmol/L (136-145) 03/02/23 06:10 Potassium 4.0 mmol/L (3.5-5.1) 03/02/23 06:10 Chloride 102 mmol/L (98-107) 03/02/23 06:10 Carbon Dioxide 29 mmol/L (22-29) 03/02/23 06:10 Anion Gap 12.0 (5-19) 03/02/23 06:10 BUN 14 mg/dL (8-23) 03/02/23 06:10 Creatinine 1.4 mg/dL (0.7-1.2) H 03/02/23 06:10 GFR Calculation 50.7 mL/min (90-130) L 03/02/23 06:10 Glucose 109 mg/dL (65-115) 09/05/23 06:10 Calculated Osmolality 289 mOsm/kg (285-295) 03/02/23 06:10 Calcium 9.7 mg/dL (8.5-10.5) 03/02/23 06:10 Procedures Performed Bilateral lower extremity angiography Vitals Last Vital Signs Temp 97.6 F 03/02/23 06:10 Pulse 77 03/02/23 09:18 Resp 20 H 03/02/23 09:18 BP 112/72 03/02/23 09:18 Pulse Ox 96 03/02/23 09:18 O2 Del Method Room Air 03/02/23 09:18 Discharge Plan Discharge Patient Disposition: Home Prescriptions: Continued (DME) Hinged knee brace See Rx Instructions .Route .MEDSUPPLY Qty: 1 0RF Rx Instructions: As directed gabapentin 300 mg capsule 300 mg PO BEDTIME tizanidine 4 mg capsule 4 mg PO BEDTIME cetirizine 10 mg capsule 10 mg PO BEDTIME cholecalciferol (vitamin D3) 125 mcg (5,000 unit) capsule 125 mcg PO DAILY ibuprofen 800 mg tablet 1,600 mg PO BEDTIME amlodipine 5 mg tablet 5 mg PO BEDTIME Qty: 90 3RF atorvastatin 40 mg tablet 40 mg PO BEDTIME Qty: 90 3RF cilostazol 50 mg tablet 100 mg PO BEDTIME Qty: 180 1RF clopidogrel 75 mg tablet 75 mg PO BEDTIME Qty: 90 2RF furosemide 40 mg tablet 40 mg PO BEDTIME Qty: 90 2RF aspirin 81 mg tablet,delayed release (DR/EC) 81 mg PO BEDTIME Qty: 90 2RF metoprolol tartrate 25 mg tablet 25 mg PO .HS Qty: 90 2RF nitroglycerin 0.4 mg tablet, sublingual 0.4 mg SUBLINGUAL Q5M PRN (Reason: chest pain) Qty: 25 3RF Rx Instructions: do not exceed 3 doses per episode (DME) raised toilet seat See Rx Instructions .Route .MEDSUPPLY Qty: 1 0RF Rx Instructions: As directed potassium chloride 20 mEq tablet extended release 20 meq PO BEDTIME Qty: 90 3RF pantoprazole 40 mg tablet,delayed release (DR/EC) See Rx Instructions .ROUTE .COMPLEX Qty: 90 3RF Dose Instruction: TAKE 1 TABLET BY MOUTH EVERY DAY Rx Instructions: TAKE 1 TABLET BY MOUTH EVERY DAY methotrexate sodium 2.5 mg tablet 7.5 mg PO Q7D Rx Instructions: on sundays diclofenac sodium 75 mg tablet,delayed release (DR/EC) 150 mg PO BEDTIME Hold Instructions: Resume on 08/11/22. Do not take diclofenac with Celebrex Discharge Orders: Discharge Order (Routine); Ordered 03/02/23 Ordered By: Osmany Arana Referrals: Jessica Garcia FNP [Nurse Practitioner] - 03/22/23 10:15 am Diet: Advance as tolerated and Cardiac Activity: Limit activity as instructed Patient Instructions: Hypertension (DC), Peripheral Vascular Angioplasty (DC), COPD Stoplight, Post Angiogram Home Care Instructions Activity Restrictions/Additional Instructions: No lifting over 5 pounds for 2 days Discharge Attestations Time Spent in Discharge Care*: greater than 30 min Quality Metrics Clinical Quality Measures [ No reported AMI, CVA or VTE this stay] Coding Level of Care Code 92195 Total time (in minutes) for Discharge: 35 Diagnoses Status post left knee replacement Z96.652 Claudication I73.9 AAA (abdominal aortic aneurysm) without rupture I71.4 Hyperlipidemia E78.2 Hyperlipidemia type: mixed hyperlipidemia Coronary artery disease I25.119 Coronary Disease-Associated Artery/Lesion type: [place] artery [place] vs. transplanted heart: [place] heart Associated angina: with unspecified angina Sleep apnea G47.30 Sleep apnea type: unspecified type Hypertension I10 Hypertension type: essential hypertension PAD (peripheral artery disease) I73.9 COPD (chronic obstructive pulmonary disease) J44.9
== END 2023-03-02 18:26 | disposition home or self-care (01) ==
LOC: CCL 05:58 → CSU 08:59
PROVIDERS: PCP Nurse Practitioner Family; Visit Provider Internal Medicine Cardiovascular Disease
DX: I70.201 Unspecified atherosclerosis of native arteries of extremities, right leg (principal); Z96.652 Presence of left artificial knee joint; I71.40 Abdominal aortic aneurysm, without rupture, unspecified; E78.2 Mixed hyperlipidemia; I25.119 Atherosclerotic heart disease of native coronary artery with unspecified angina pectoris; G47.30 Sleep apnea, unspecified; I10 Essential (primary) hypertension; J44.9 Chronic obstructive pulmonary disease, unspecified; Z95.1 Presence of aortocoronary bypass graft; Z87.891 Personal history of nicotine dependence
CPT/HCPCS: 36415; 75716; 80048; 85025; 85730; 96361; 96365; 96367; 99152; 99153; C1769; C1887; C1894; J1644; J2250; J3010; J7030; Q0163; Q9967

== ENCOUNTER 2023-03-05 09:01 | Outpatient (CLI) | payer MEDICARE, SELFPAY ==
--- NOTE | 2023-03-05 09:42 | NM_ITS ---
WS: [id number] THREE-PHASE BONE SCAN HISTORY: weakness of tka COMPARISON: Knee radiographs 01/20/2023 Patient is is injected with 24.4 mCi Tc99m HDP intravenously. Immediate angiographic phase imaging is performed over the area of concern. Static blood pool imaging also performed. Two-hour whole-body sc intigrams performed in anterior and posterior projections. Additional large field of view imaging sub mitted as necessary. Three-phase bone scan imaging is centered over the knees. Normal angiographic imaging phase. Normal b lood pool phase imaging. Photopenic defect LEFT knee from prior arthroplasty. There is moderate increased uptake bilaterally at the knees. RIGHT knee increased uptake is most sign ificant involving the medial compartment where there is bone upon bone. Increased uptake along the ti bial plateau and involving the femoral condyles. Consistent with degenerative osteoarthritis. Photope [place] defect in the central LEFT knee from the knee arthroplasty. There is increased uptake along the t ibial plateau and proximal metaphysis and also surrounding the femoral condyle component of the prost hesis. Radiographically no loosening is evident. Normal soft tissue uptake. Normal renal uptake. No additional bone lesions. IMPRESSION: 1. Status post LEFT knee arthroplasty. There is increased uptake surrounding the femoral prosthesis a nd along the tibial plateau and tibial metaphysis. No loosening was identified radiographically. Knee surgery was less than a year ago. Increased activity can be seen for at least a year postoperatively . This may be a normal postoperative appearance of the knee. Recommend continued close clinical evalu ation. 2. Moderate increased uptake at the RIGHT knee joint. Increased uptake is likely related to degenerat betito osteoarthritis.
== END 2023-03-05 09:02 | disposition home or self-care (01) ==
LOC: RAD 09:03
PROVIDERS: PCP Nurse Practitioner Family; Visit Provider Specialist
DX: Z96.652 Presence of left artificial knee joint (principal); R53.1 Weakness
CPT/HCPCS: 78315; A9561

== ENCOUNTER → 2023-03-22 10:00 | Outpatient (BNVA) | payer MEDICARE, SELFPAY | PROVIDERS: PCP Nurse Practitioner Family; Visit Provider Nurse Practitioner Family | DX: I73.9 Peripheral vascular disease, unspecified (principal) | CPT/HCPCS: 36415; 80048; 99214 ==

== ENCOUNTER → 2023-03-31 12:07 | Outpatient (BNVA) | payer MEDICARE, SELFPAY | PROVIDERS: PCP Nurse Practitioner Family; Visit Provider Internal Medicine Cardiovascular Disease | DX: I73.9 Peripheral vascular disease, unspecified (principal); J44.9 Chronic obstructive pulmonary disease, unspecified; R06.02 Shortness of breath; Z96.652 Presence of left artificial knee joint; E78.2 Mixed hyperlipidemia; I25.119 Atherosclerotic heart disease of native coronary artery with unspecified angina pectoris; G47.30 Sleep apnea, unspecified; I10 Essential (primary) hypertension | CPT/HCPCS: 99214 ==

== ENCOUNTER 2023-04-05 05:48 | Outpatient (CLI) | payer MEDICARE, SELFPAY ==
[2023-04-05] VITALS (57 sets, daily range): BP systolic 100–143; BP diastolic 61–78; PULSE 68–90; RESP 13–33; TEMP 36.5–36.8; O2SAT 93–100; BMI 41.6
--- NOTE | 2023-04-05 06:00 | XACV_ITS ---
Ht: 170 cm Wt: 121 kg BSA: 2.45 m2 Any Known Allergies: No known allergies Gender: Male : 1955 Exam Type: Invasive Peripheral Vascular Procedure(s): Procedure Description: Peripheral Cath Diagnostic Procedure Exam Priority: Routine CROKE, Yasmeen; Lower Extremity Diagnostic Findings Patient with known peripheral arterial disease with claudication. Initial visit approximately a year ago revealed the entire SFA to be occluded on the right. Balloon angioplasty was successful in opening the vessel however there was an area in the distal artery which was resistant to balloon angioplasty. While preparing for atherectomy a patient with an acute ST segment elevation ND came in. This patient was taken off the table. He was brought back several months later for an attempt at the occluded vessel. At that time the vessel was occluded with a short segment occlusion distally. I was unable to cross the lesion with a wire from above. He was therefore brought back today for an attempt at popliteal access and intervention from below. Lower Extremity Interventional Findings Initially a blind stick in an attempt to find the artery was unsuccessful. Ultrasound was used. The ultrasound revealed the artery to be significantly medial. The artery was located with the ultrasound and the sheath placed. A wire was placed through the sheath and across the lesion. Subsequently a 5 x 40 mm balloon was used to open the vessel. Flow was reestablished. There is a significant amount of plaque which is mildly to moderately calcified. I decided to use a drug eluting balloon after this. 6 x 40 mm balloon was used. The end result was acceptable. There is still a tremendous amount of plaque in the entire artery. Distal flow was reestablished however. Conclusions Successful angioplasty of the distal superficial femoral artery via the popliteal. Anticoagulation: Heparin Hemodynamic Data Phase:Rest AO : 112.0 / 77.0 ( 92.0 ) @ 8:46:00 AM Access Site Site: Right Popliteal Sheath Size: 6 Fr Hemost... Method: Suture Hemost... Success: Successful Procedure Details Findings Procedure Consent Obtained. Admit Source: Out Patient. Pre-Procedure Time Out. Identified patient by full name and date of as verbalized by the patient/guarantor. Does the consent match the physician's order: Yes. Accurate & Complete Informed Consent: Yes. Inpatient/Outpatient History & Physical on Chart: Yes. If H&P is completed, is and addenduem needed: N/A; If yes, is the addendum complete: N/A. Visualize and Verify Site with Patient/Guarantor: N/A. Relevant Radiology Images available: N/A. Pre-op teaching completed and patient verbalized understanding. The risks, benefits, and alternatives of sedation and/or procedure were discussed by physician. The patient agrees to continue. Procedure started. Insurance Underwriter Sales Indications:leg pain. Correct patient, site and procedure confirmed by cath team. Current diagnosis: PVD. PERRLA. 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 Lungs clear x 5 lobes. IV Site on Arrival: 20 gauge in the left anticubital. IV Fluids: 0.9% NaCl at KVO. 0 mL infused prior to slab stripper. Pre Procedural Pulses: bilateral dorsalis pedis was Doppled. Pre Procedural Pulses: right posterior tibial was 2+. Pre Procedural Pulses: left posterior tibial was Doppled. Oxygen started at 2liters/min via nasal canula. popliteal was prepped with chloroprep then draped in the usual sterile fashion. Baseline sample Acquired. HR: 78 BPM. Physician notified. Physician arrived. Physician scrubbed in. Time out performed with cath team. Lidocaine 1% infiltrated to the right popliteal. US called to assist with difficult vascular access. Alok with ultrasound assisting with vascular access. Arterial access obtained. Sheath wire out. Glidewire inserted through the access needle. 6Fr sheath out over the wire. 6Fr Glidesheath inserted over Glidewire. Right distal superficial femoral selected and arteriogram performed. Balloon inserted over the wire to the distal superficial femoral. Inflation number : 1 A AB ARMADA 35 OTW [id number] was prepped and advanced across the Distal Superficial Femoral, Right , then inflated to 8 CAT[place] for 0:22 seconds. Inflation number: 2 The AB ARMADA 35 OTW [id number] was reinflated across the Distal Superficial Femoral, Right, to 8 CAT[place] for 0:30 seconds. Inflation number: 3 The AB ARMADA 35 OTW [id number] was reinflated across the Distal Superficial Femoral, Right, to 0 CATARINA for 0:20 seconds. Balloon out. Results checked. Balloon inserted over the wire to the distal superficial femoral. Inflation number : 4 A Lutonix Drug Coated Balloon 6.0x40mm was prepped and advanced across the Distal Superficial Femoral, Right , then inflated to 7 CATARINA for 0:31 seconds, lot # [id number] Exp 07/29/2023. Balloon out over wire. Results checked. Wire out. Physician scrubbed out. A Suture was successful obtaining hemostatsis at the Right Popliteal insertion site. Sheath(s) sutured into position with 2-0 silk and sterile 4x4's and Op-site applied over the site. No oozing or signs and symptoms of hematoma noted. Post Procedure: Pulses reassessed and unchanged. PERRLA. 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 No VTE prophylaxis required. Medication's Wasted: Heparin = 4000 u. Total IV fluids: 60 mL. Post-op diagnosis: PVD. Complications: none. Estimated blood loss: 5mL-10mL. Responsiveness - Normal response to verbal stimuli; alert and oriented, PERRLA. Airway - Unaffected, no intervention required; spontaneous ventilation. Circulation: W/N/L, pulses unchanged. Nausea/Vomiting: No. Procedure completed. Patient transferred by bed to CPRU. Vital chart was stopped. Procedure Medications Start: 7:12 AM Stop: 7:12 AM Medication: Versed Amount: 1 mg Route: I.V. Start: 7:12 AM Stop: 7:12 AM Medication: Fentanyl Amount: 50 mcg Route: I.V. Start: 7:25 AM Stop: 7:25 AM Medication: Versed Amount: 1 mg Route: I.V. Start: 7:25 AM Stop: 7:25 AM Medication: Fentanyl Amount: 50 mcg Route: I.V. Start: 7:43 AM Stop: 7:43 AM Medication: Versed Amount: 1 mg Route: I.V. Start: 7:43 AM Stop: 7:43 AM Medication: Fentanyl Amount: 50 mcg Route: I.V. Start: 7:45 AM Stop: 7:45 AM Medication: Heparin Amount: 5000 units Route: I.V. Start: 7:52 AM Stop: 7:52 AM Medication: Versed Amount: 1 mg Route: I.V. Start: 7:52 AM Stop: 7:52 AM Medication: Fentanyl Amount: 50 mcg Route: I.V. I, the attending physician, have reviewed and verified all procedure medications. Yes, all medications given per verbal order History/Risk Factors Hypertension: Yes Dyslipidemia: Yes Peripheral Arterial Disease (PAD): Yes Obesity: Yes Renal Disease: No Tobacco Use: Former Prior Interventions PCI: No CABG: No Valve Surgery: No Report Signatures Finalized by Dr. Osmany Arana MD on 04/05/2023 08:18 AM
[2023-04-05 06:28] LABS: Basophils % 0.4 %; Eosinophils # 0.3 10^3/uL (0.0-0.8); Eosinophils % 5.3 %; Hematocrit 39.9 % (37-53); Lymphocytes # 1.6 10^3/uL (0.8-4.8); Lymphocytes % 32.1 %; Mean Corpuscular HGB Conc 34.1 g/dL (30-55); Mean Corpuscular Hemoglobin 32.2 pg (27-33); Mean Corpuscular Volume 94.3 fl (82-101); Mean Platelet Volume 9.4 fL (7.4-10.4); Monocytes # 0.4 10^3/uL (0.2-0.9); Monocytes % 8.7 %; Neutrophils # 2.61 10^3/uL (1.8-7.7); Neutrophils % 53.1 %; Nucleated Red Blood Cells % 0 %; Platelet Count 152 10^3/cmm (157-399); Red Blood Count 4.23 10^6/uL (3.85-5.65); Red Cell Distribution Width 16.9 % (12.1-15.1); White Blood Count 4.92 10^3/uL (3.29-11.43)
[2023-04-05] MEDS: aspirin 325 mg Tablet PO (06:30)
[2023-04-05] MEDS: diphenhydrAMINE 50 mg Capsule PO (06:30)
[2023-04-05 06:44] LABS: Anion Gap 14.7 (5-19); Blood Urea Nitrogen 13 mg/dL (8-23); Calcium 9.5 mg/dL (8.5-10.5); Carbon Dioxide 28 mmol/L (22-29); Chloride 100 mmol/L (98-107); Glomerular Filtration Rate 46.8 mL/min (90-130); Glucose 101 mg/dL (65-115); Osmolality Calculated 288 mOsm/kg (285-295); Potassium 3.7 mmol/L (3.5-5.1); Sodium 139 mmol/L (136-145)
--- NOTE | 2023-04-05 06:59 | W.PM.OPSUD ---
Surgery/Procedure H&P Update DATE OF PROCEDURE: April 05, 2023 DATE H&P PERFORMED: 03/31/23 CHANGES TO PREVIOUS DOCUMENTATION: None PREOP DIAGNOSIS: PAD PRIMARY INDICATION FOR PROCEDURE: PAD with claudication PLANNED PROCEDURE: Operation Date: 04/05/23 07:00 Proposed Procedures p Peripheral angiogram 42923, I73.9(Not Applicable) - Osmany Arana MD
[2023-04-05] MEDS: sodium chloride 0.9% 1,000 ML 100 ML IV (10:02)
[2023-04-05] MEDS: pantoprazole DR 40 mg Tablet PO (10:03)
[2023-04-05] MEDS: cholecalciferol (vitamin D3) 5,000 unit Tablet 5000 UNIT PO (10:03)
[2023-04-05 10:21] LABS: Partial Thromboplastin Time 35.6 SECONDS (23.9-36.7)
--- NOTE | 2023-04-05 11:01 | PC.NURSE ---
Poplliteal sheath remved at 1054 without complication. Patient resting in bed and watching TV. Instructed not to bend right leg for the next 4 hours. Up time will be 3pm.
--- NOTE | 2023-04-05 19:02 | PC.NURSE ---
Patient s/p peripheral angiogram via right popliteal artery. Dressing in place remains c,d,i with no s/s of bleeding or hematoma formation. Patient denies pain to site. Patient has been ambulatory. Denies other pains or needs. Is requesting something to help with sleep. Will continue to monitor.
[2023-04-05] MEDS: gabapentin 300 mg Capsule PO (20:13)
[2023-04-05] MEDS: cilostazol 100 mg Tablet PO (20:13)
[2023-04-05] MEDS: FUROsemide 40 mg Tablet PO (20:13)
[2023-04-05] MEDS: temazepam 15 mg Capsule PO (20:13)
[2023-04-05] MEDS: amlodipine 5 mg Tablet PO (20:13)
[2023-04-05] MEDS: potassium chloride ER 20 mEq Tablet PO (20:13)
[2023-04-05] MEDS: tizanidine 4 mg Tablet PO (20:13)
[2023-04-05] MEDS: metoprolol tartrate 25 mg Tablet PO (20:13)
[2023-04-05] MEDS: cetirizine 10 mg Tablet PO (20:13)
[2023-04-05] MEDS: aspirin 81 mg EC Tablet PO (20:13)
[2023-04-05] MEDS: atorvastatin 40 mg Tablet PO (20:13)
[2023-04-05] MEDS: clopidogrel 75 mg Tablet PO (20:13)
[2023-04-06 05:26] VITALS: BP 110/64; PULSE 77; RESP 18
[2023-04-06 05:29] VITALS: PULSE 77
--- NOTE | 2023-04-06 07:31 | PM.DCS ---
Discharge Providers Date of Admission: April 05, 2023 Date of Discharge: April 06, 2023 Attending Provider at Admission: kapil Attending Provider at Discharge: Osmany Arana MD Primary Care Provider: REBECCA Nielsen Diagnoses at Discharge Discharge Diagnosis (1) COPD (chronic obstructive pulmonary disease): Status: Acute (2) Claudication: Status: Acute (3) AAA (abdominal aortic aneurysm) without rupture: Status: Acute (4) Hyperlipidemia: Status: Acute Qualifiers: Hyperlipidemia type: mixed hyperlipidemia Qualified Code(s): E78.2 - Mixed hyperlipidemia (5) Coronary artery disease: Status: Acute Qualifiers: Coronary Disease-Associated Artery/Lesion type: [place] artery [place] vs. transplanted heart: [place] heart Associated angina: with unspecified angina Qualified Code(s): I25.119 - Atherosclerotic heart disease of [place] coronary artery with unspecified angina pectoris Permanent problem details: s/p successful revascularization of mid Left circumflex artery (6) Sleep apnea: Status: Acute Qualifiers: Sleep apnea type: unspecified type Qualified Code(s): G47.30 - Sleep apnea, unspecified (7) Hypertension: Status: Acute Qualifiers: Hypertension type: essential hypertension Qualified Code(s): I10 - Essential (primary) hypertension (8) PAD (peripheral artery disease): Status: Acute Reason for Visit Reason for Visit: I73.9 Brief History: Van is 67 and has peripheral arterial disease along with multiple other comorbidities. Several months ago he presented with severe claudication on the right. His entire superficial femoral artery was occluded. I was able to open the vessel with a long balloon however there was an area at the distal end which was resistant to balloon angioplasty. As I was about to perform an atherectomy, patient with an acute TX came in. Van was taken off the table. Several weeks later he was brought back for purposes of intervening on the distal SFA lesion. At that time the vessel was completely closed. I was unable to get through the vessel utilizing a wire from above. Therefore I brought him back yesterday in an attempt to intervene via the popliteal artery from below. Hospital Course Hospital Course Sheath was placed in the popliteal artery utilizing ultrasound. The wire easily crossed the occlusion. The lesion underwent plain old balloon angioplasty followed by drug-eluting balloon angioplasty. The vessel is moderately severely diseased diffusely however the area of occlusion opened nicely with good distal flow. There were no complications. There was no bleeding or other vascular anomalies after the procedure. At the time of discharge the area of entry is flat, dry without bleeding, hematoma or other vascular anomaly. He and his have been instructed that he should not lift any more than 5 pounds for 2 days and should not bend the right knee past 20 degrees for 2 days. Physical Exam Narrative: GENERAL: In general he feels well HEENT: Exam within normal limits. NECK: Supple without jugular vein distention. The carotid upstroke is normal without bruits. BACK: Exam normal. LUNGS: Clear. HEART: Regular rate and rhythm. ABDOMEN: Benign without organomegaly or tenderness. EXTREMITIES: No edema. The area of the right popliteal artery entry site is flat, dry without bleeding or hematoma. NEUROLOGIC: Exam normal. SKIN: Unremarkable. Discharge Data Studies Completed and Pending Completed Studies During Hospitalization Category Date Time Status SUPERVISOR PIPELINE request for service Routine Exams 04/05/23 06:00 Completed Laboratory Results WBC 4.92 10^3/uL (3.29-11.43) 04/05/23 06:22 RBC 4.23 10^6/uL (3.85-5.65) 04/05/23 06:22 Hgb 13.60 g/dL (11.27-16.99) 04/05/23 06:22 Hct 39.9 % (37-53) 04/05/23 06:22 MCV 94.3 fl (82-101) 04/05/23 06:22 MCH 32.2 pg (27-33) 04/05/23 06:22 MCHC 34.1 g/dL (30-55) 04/05/23 06:22 RDW 16.9 % (12.1-15.1) H 04/05/23 06:22 Plt Count 152 10^3/cmm (157-399) L 04/05/23 06:22 MPV 9.4 fL (7.4-10.4) 04/05/23 06:22 Neut % (Auto) 53.1 % 04/05/23 06:22 Lymph % (Auto) 32.1 % 04/05/23 06:22 [place] % (Auto) 8.7 % 04/05/23 06:22 Eos % (Auto) 5.3 % 04/05/23 06:22 Baso % (Auto) 0.4 % 04/05/23 06:22 Neut # (Auto) 2.61 10^3/uL (1.8-7.7) 04/05/23 06:22 Lymph # (Auto) 1.6 10^3/uL (0.8-4.8) 04/05/23 06:22 [place] # (Auto) 0.4 10^3/uL (0.2-0.9) 04/05/23 06:22 Eos # (Auto) 0.3 10^3/uL (0.0-0.8) 04/05/23 06:22 Baso # (Auto) 0.0 10^3/uL (0.0-0.1) 04/05/23 06:22 Nucleated RBC % (auto) 0 % 04/05/23 06:22 Nucleated RBCs # 0.0 /100WBC 04/05/23 06:22 APTT 35.6 SECONDS (23.9-36.7) 04/05/23 09:58 Sodium 139 mmol/L (136-145) 04/05/23 06:22 Potassium 3.7 mmol/L (3.5-5.1) 04/05/23 06:22 Chloride 100 mmol/L (98-107) 04/05/23 06:22 Carbon Dioxide 28 mmol/L (22-29) 04/05/23 06:22 Anion Gap 14.7 (5-19) 04/05/23 06:22 BUN 13 mg/dL (8-23) 04/05/23 06:22 Creatinine 1.5 mg/dL (0.7-1.2) H 04/05/23 06:22 GFR Calculation 46.8 mL/min (90-130) L 04/05/23 06:22 Glucose 101 mg/dL (65-115) 04/05/23 06:22 Calculated Osmolality 288 mOsm/kg (285-295) 04/05/23 06:22 Calcium 9.5 mg/dL (8.5-10.5) 04/05/23 06:22 Procedures Performed Right lower extremity angiography, distal right superficial femoral artery angioplasty. Vitals Last Vital Signs Temp 97.7 F 04/05/23 20:18 Pulse 77 04/06/23 05:29 Resp 18 04/06/23 05:26 BP 110/64 04/06/23 05:26 Pulse Ox 97 04/05/23 13:48 O2 Del Method Room Air 04/06/23 05:26 Discharge Plan Discharge Patient Disposition: Home Prescriptions: Continued (DME) Hinged knee brace See Rx Instructions .Route .MEDSUPPLY Qty: 1 0RF Rx Instructions: As directed gabapentin 300 mg capsule 300 mg PO BEDTIME tizanidine 4 mg capsule 4 mg PO BEDTIME cetirizine 10 mg capsule 10 mg PO BEDTIME cholecalciferol (vitamin D3) 125 mcg (5,000 unit) capsule 125 mcg PO DAILY ibuprofen 800 mg tablet 1,600 mg PO BEDTIME amlodipine 5 mg tablet 5 mg PO BEDTIME Qty: 90 3RF atorvastatin 40 mg tablet 40 mg PO BEDTIME Qty: 90 3RF cilostazol 50 mg tablet 100 mg PO BEDTIME Qty: 180 1RF clopidogrel 75 mg tablet 75 mg PO BEDTIME Qty: 90 2RF furosemide 40 mg tablet 40 mg PO BEDTIME Qty: 90 2RF aspirin 81 mg tablet,delayed release (DR/EC) 81 mg PO BEDTIME Qty: 90 2RF metoprolol tartrate 25 mg tablet 25 mg PO .HS Qty: 90 2RF nitroglycerin 0.4 mg tablet, sublingual 0.4 mg SUBLINGUAL Q5M PRN (Reason: chest pain) Qty: 25 3RF Rx Instructions: do not exceed 3 doses per episode (DME) raised toilet seat See Rx Instructions .Route .MEDSUPPLY Qty: 1 0RF Rx Instructions: As directed potassium chloride 20 mEq tablet extended release 20 meq PO BEDTIME Qty: 90 3RF pantoprazole 40 mg tablet,delayed release (DR/EC) See Rx Instructions .ROUTE .COMPLEX Qty: 90 3RF Dose Instruction: TAKE 1 TABLET BY MOUTH EVERY DAY Rx Instructions: TAKE 1 TABLET BY MOUTH EVERY DAY methotrexate sodium 2.5 mg tablet 7.5 mg PO Q7D Rx Instructions: on sundays diclofenac sodium 75 mg tablet,delayed release (DR/EC) 150 mg PO BEDTIME Hold Instructions: Resume on 08/11/22. Do not take diclofenac with Celebrex Discharge Orders: Discharge Order (Routine); Ordered 04/06/23 Ordered By: Osmany Arana Referrals: Jessica Garcia FNP [Nurse Practitioner] - 04/13/23 9:30 am Diet: Cardiac Activity: Increase activity as tolerated and Limit activity as instructed Patient Instructions: Peripheral Vascular Angioplasty (DC) Activity Restrictions/Additional Instructions: No lifting over 5 pounds for 2 days. Do not bend the right knee past 20 degrees for 2 days. Discharge Attestations Time Spent in Discharge Care*: greater than 30 min Quality Metrics Clinical Quality Measures [ No reported AMI, CVA or VTE this stay] Coding Level of Care Code 70421 Total time (in minutes) for Discharge: 40 Diagnoses COPD (chronic obstructive pulmonary disease) J44.9 Claudication I73.9 AAA (abdominal aortic aneurysm) without rupture I71.4 Hyperlipidemia E78.2 Hyperlipidemia type: mixed hyperlipidemia Coronary artery disease I25.119 Coronary Disease-Associated Artery/Lesion type: [place] artery [place] vs. transplanted heart: [place] heart Associated angina: with unspecified angina Sleep apnea G47.30 Sleep apnea type: unspecified type Hypertension I10 Hypertension type: essential hypertension PAD (peripheral artery disease) I73.9
--- NOTE | 2023-04-06 09:19 | PC.NURSE ---
Discharge Note Patient discharged to home via POV accompanied by family. Discharge instructions reviewed with patient and/or labor representative. Mobile pharmacy medications and/or prescriptions provided. Belongings/home medications returned.
== END 2023-04-06 09:20 | disposition home or self-care (01) ==
LOC: CCL 05:49 → CSU 10:47
PROVIDERS: PCP Nurse Practitioner Family; Visit Provider Internal Medicine Cardiovascular Disease
DX: I70.201 Unspecified atherosclerosis of native arteries of extremities, right leg (principal); R06.02 Shortness of breath; J44.9 Chronic obstructive pulmonary disease, unspecified; I71.40 Abdominal aortic aneurysm, without rupture, unspecified; E78.2 Mixed hyperlipidemia; I25.119 Atherosclerotic heart disease of native coronary artery with unspecified angina pectoris; G47.30 Sleep apnea, unspecified; I10 Essential (primary) hypertension; E66.9 Obesity, unspecified; Z68.41 Body mass index [BMI] 40.0-44.9, adult; Z87.891 Personal history of nicotine dependence
CPT/HCPCS: 36415; 37224; 80048; 85025; 85730; 96365; 96376; 99152; 99153; C1725; C1769; C1894; C2623; J1644; J2250; J3010; J7030; Q0163; Q9967

== ENCOUNTER → 2023-04-13 08:39 | Outpatient (BNVA) | payer MEDICARE, SELFPAY | PROVIDERS: PCP Nurse Practitioner Family; Visit Provider Nurse Practitioner Family | DX: I73.9 Peripheral vascular disease, unspecified (principal); I10 Essential (primary) hypertension; Z87.891 Personal history of nicotine dependence; Z82.49 Family history of ischemic heart disease and other diseases of the circulatory system; E78.5 Hyperlipidemia, unspecified | CPT/HCPCS: 36415; 80048; 85025; 85610; 99214 ==

== ENCOUNTER → 2023-04-14 12:30 | Outpatient (BNVA) | payer MEDICARE, SELFPAY | PROVIDERS: PCP Nurse Practitioner Family; Visit Provider Specialist | DX: Z96.652 Presence of left artificial knee joint (principal); M25.562 Pain in left knee | CPT/HCPCS: 20600; 20610; 80503; 87070; 87075; 87205; 89050; 99214 ==

== ENCOUNTER → 2023-05-10 09:14 | Outpatient (BNVA) | payer MEDICARE, SELFPAY | PROVIDERS: PCP Nurse Practitioner Family; Visit Provider Specialist | DX: M25.562 Pain in left knee (principal); Z96.652 Presence of left artificial knee joint | CPT/HCPCS: 99213 ==

== ENCOUNTER → 2023-05-14 08:39 | Outpatient (BNVA) | payer MEDICARE, SELFPAY | PROVIDERS: PCP Nurse Practitioner Family; Visit Provider Internal Medicine Cardiovascular Disease | DX: M25.562 Pain in left knee (principal); J44.9 Chronic obstructive pulmonary disease, unspecified; R06.02 Shortness of breath; Z96.652 Presence of left artificial knee joint; E78.2 Mixed hyperlipidemia; I25.119 Atherosclerotic heart disease of native coronary artery with unspecified angina pectoris; I73.9 Peripheral vascular disease, unspecified; I10 Essential (primary) hypertension; G47.30 Sleep apnea, unspecified; Z87.891 Personal history of nicotine dependence | CPT/HCPCS: 99213 ==

== ENCOUNTER → 2023-08-09 08:42 | Outpatient (BNVA) | payer MEDICARE, SELFPAY | PROVIDERS: Visit Provider Specialist | DX: M25.562 Pain in left knee (principal); Z96.652 Presence of left artificial knee joint; G89.29 Other chronic pain | CPT/HCPCS: 20605; 20610 ==

== ENCOUNTER → 2023-09-15 10:20 | Outpatient (BNVA) | payer MEDICARE, SELFPAY | PROVIDERS: Visit Provider Specialist | DX: M25.562 Pain in left knee (principal); G89.29 Other chronic pain; Z96.652 Presence of left artificial knee joint | CPT/HCPCS: 73560; 73562; 73565; 99214 ==

== ENCOUNTER 2023-09-28 09:11 | Outpatient (CLI) | payer MEDICARE, SELFPAY ==
--- NOTE | 2023-09-28 09:30 | NM_ITS ---
WS: [id number] THREE-PHASE BONE SCAN HISTORY: LEFT knee pain. Prior total knee arthroplasty. COMPARISON: 03/05/2023. Patient is is injected with 24.3 mCi Tc99m HDP intravenously. Immediate angiographic phase imaging is performed over the area of concern. Static blood pool imaging also performed. Two-hour whole-body sc intigrams performed in anterior and posterior projections. Additional large field of view imaging sub mitted as necessary. Three-phase bone scan with attention to the knees. Normal arterial and blood pool phase imaging. Phot openic defect LEFT knee at the site of the knee replacement and arthroplasty. On the 2 hour delayed imaging there is decreasing uptake surrounding the knee and the arthroplasty. T he prior positive bone scan may have been due to the recent placement of the arthroplasty. There is s till very mild increased uptake along the tibial plateau and femoral condyles. There is more focal in tense uptake in the medial RIGHT knee compartment and along the lateral RIGHT femoral condyle. The re maining skeleton is negative. No soft tissue abnormalities. Normal uptake in the kidneys. IMPRESSION: 1. Overall significant improvement in the increased uptake LEFT knee involving the arthroplasty si nce 03/05/2023. 2. Moderate osteoarthritis medial compartment RIGHT knee and involving the lateral RIGHT femoral con dyle.
== END 2023-09-28 09:12 | disposition home or self-care (01) ==
PROVIDERS: Visit Provider Specialist
DX: M25.562 Pain in left knee (principal); G89.29 Other chronic pain; M17.11 Unilateral primary osteoarthritis, right knee
CPT/HCPCS: 78315; A9561

== ENCOUNTER → 2023-12-22 13:36 | Outpatient (BNVA) | payer MEDICARE, SELFPAY | PROVIDERS: Visit Provider Specialist | DX: Z96.652 Presence of left artificial knee joint (principal); T84.018D Broken internal joint prosthesis, other site, subsequent encounter; E66.01 Morbid (severe) obesity due to excess calories; Z68.41 Body mass index [BMI] 40.0-44.9, adult; Y79.2 Prosthetic and other implants, materials and accessory orthopedic devices associated with adverse incidents | CPT/HCPCS: 99214 ==

== ENCOUNTER → 2024-01-14 10:46 | Outpatient (BNVA) | payer MEDICARE, SELFPAY | PROVIDERS: Visit Provider Nurse Practitioner Family | DX: I73.9 Peripheral vascular disease, unspecified (principal); I25.119 Atherosclerotic heart disease of native coronary artery with unspecified angina pectoris; I71.43 Infrarenal abdominal aortic aneurysm, without rupture; Z87.891 Personal history of nicotine dependence; I10 Essential (primary) hypertension | CPT/HCPCS: 99214 ==

== ENCOUNTER → 2024-02-15 14:38 | Outpatient (BNVA) | payer MEDICARE, SELFPAY | PROVIDERS: Visit Provider Student in an Organized Health Care Education/Training Program | DX: Z96.652 Presence of left artificial knee joint; M17.11 Unilateral primary osteoarthritis, right knee; T84.018D Broken internal joint prosthesis, other site, subsequent encounter; X58.XXXD Exposure to other specified factors, subsequent encounter; E66.01 Morbid (severe) obesity due to excess calories; Z68.41 Body mass index [BMI] 40.0-44.9, adult | CPT/HCPCS: 73560; 73565; 99213 ==

== ENCOUNTER 2024-03-24 07:34 | Outpatient (CLI) | payer MEDICARE, SELFPAY ==
--- NOTE | 2024-03-24 07:45 | USCV_ITS ---
Van Dwyer Age: 68 Gender: M : 1955 Exam Date: 03/24/2024 07:50 Ordering Phys: Jessica Garcia Technologist: R Exam Location: [facility] [place] Indication: Infrarenal AAA HISTORY: Diameter (cm) AP x Transverse x Length Velocity (cm/s) Waveform Prox Aorta: 2.00 x 2.20 x 55.60 Triphasic Mid Aorta: 3.70 x 3.80 x 82.10 Triphasic Distal Aorta: 3.70 x 3.60 x 84.60 Triphasic Right Iliac Prox: 1.20 x 1.52 x 187.80 Triphasic Left Iliac Prox: 1.41 x 1.25 x 77.00 Triphasic Stent Prox Landing x x Aneurysmal Sac Max x x Lt Lat Sac Dim Rt Lat Sac Dim Stent Dist Landing x x Right Iliac Stent x x Left Iliac Stent x x Right Renal Art Left Renal Art FINDINGS: comparison 2021 CONCLUSIONS Mid to Distal fusiform AAA measuring 3.7 x 3.6cm slightly progressed since 2021 Ectatic common iliac arteries similar in appearance Moderate atheromatous disease Lyndon Robertson MD (Electronically Signed) Final Date: 27 March 2024 11:19 S
== END 2024-03-24 07:35 | disposition home or self-care (01) ==
LOC: RAD 07:35
PROVIDERS: Visit Provider Nurse Practitioner Family
DX: I71.43 Infrarenal abdominal aortic aneurysm, without rupture (principal); I77.89 Other specified disorders of arteries and arterioles
CPT/HCPCS: 93978

== ENCOUNTER → 2024-04-04 08:08 | Outpatient (BNVA) | payer MEDICARE, SELFPAY | PROVIDERS: Visit Provider Student in an Organized Health Care Education/Training Program | DX: Z96.652 Presence of left artificial knee joint (principal); T84.018D Broken internal joint prosthesis, other site, subsequent encounter; E66.01 Morbid (severe) obesity due to excess calories; Z68.41 Body mass index [BMI] 40.0-44.9, adult; Y79.2 Prosthetic and other implants, materials and accessory orthopedic devices associated with adverse incidents; E66.813 Obesity, class 3 | CPT/HCPCS: 99213 ==

== ENCOUNTER → 2024-06-08 10:49 | Outpatient (BNVA) | payer MEDICARE, SELFPAY | PROVIDERS: Visit Provider Internal Medicine | DX: I71.43 Infrarenal abdominal aortic aneurysm, without rupture (principal); I77.9 Disorder of arteries and arterioles, unspecified; M25.562 Pain in left knee; G89.29 Other chronic pain; J44.9 Chronic obstructive pulmonary disease, unspecified; Z96.652 Presence of left artificial knee joint; E78.2 Mixed hyperlipidemia; I25.119 Atherosclerotic heart disease of native coronary artery with unspecified angina pectoris; I73.9 Peripheral vascular disease, unspecified; I10 Essential (primary) hypertension; G47.30 Sleep apnea, unspecified; Z87.891 Personal history of nicotine dependence | CPT/HCPCS: 99214 ==

== ENCOUNTER → 2024-09-20 10:56 | Outpatient (BNVA) | payer MEDICARE, SELFPAY | PROVIDERS: Visit Provider Student in an Organized Health Care Education/Training Program | DX: G89.29 Other chronic pain (principal); Z96.652 Presence of left artificial knee joint; T84.01 Broken internal joint prosthesis; E66.01 Morbid (severe) obesity due to excess calories; Z68.41 Body mass index [BMI] 40.0-44.9, adult; X58.XXXD Exposure to other specified factors, subsequent encounter | CPT/HCPCS: 73560; 73565; 99214 ==

== ENCOUNTER 2024-11-28 15:15 | Outpatient (CLI) | payer MEDICARE, SELFPAY | END 2024-11-28 15:16 | disposition home or self-care (01) | LOC: SPT 15:17 | PROVIDERS: Visit Provider Student in an Organized Health Care Education/Training Program | DX: Z47.89 Encounter for other orthopedic aftercare (principal); Z96.652 Presence of left artificial knee joint; T84.018D Broken internal joint prosthesis, other site, subsequent encounter; M25.562 Pain in left knee; G89.29 Other chronic pain | CPT/HCPCS: L1812 ==